=== PATIENT | male | born 1945 | race Caucasian/White ===

== ENCOUNTER 2020-07-07 08:37 | Inpatient (IN) | payer OTHER ==
[2020-07-07 09:51] LABS: Arterial Blood Carboxyhemoglob 0.7 % (0-1.5); Blood Gas Oxyhemoglobin 93.4 % (94-97); Blood O2 Saturation 96.5 % (92-98.5)
--- NOTE | 2020-07-07 10:03 | RAD REPORT ---
EXAM DESCRIPTION: CT - Head C Spine Cap Wo Con - 07/07/2020 9:30 am TECHNIQUE: Computed axial tomography of the head and cervical spine was obtained. Coronal and sagitt al reconstruction was performed Computed axial tomography of the chest, abdomen and pelvis was obtained. Contrast was not requested. All CT scans are performed using dose optimization technique as appropriate and may include automated exposure control or mA/KV adjustment according to patient size. CLINICAL HISTORY: Head and neck injury with chest and abdominal pain status post fall COMPARISON: None FINDINGS: An intracranial bleed is not seen. The ventricles are normal in caliber. An extra-axial fluid collection is not noted. . Fluid within the sinuses/mastoids is not seen. A cervical fracture is not seen. No dislocation is noted. The evaluation of mediastinum, re, vessels, solid organs and bowel are limited secondary to the lac k of contrast administration. A mediastinal hematoma is not noted. No pleural effusion. . A lung contusion is not present. Mild rig ht lower lobe opacities probably atelectasis The liver,spleen, pancreas, adrenals,kidneys and bladder do not demonstrate a traumatic injury. Cholelithiasis. A Acosta catheter is present within the bladder. Spondylosis involves lumbar spine res ulting in spinal stenosis. . Renal cysts suspected IMPRESSION: 1. No acute intracranial abnormality is seen. 2. A cervical fracture is not visualized. If the patient continues have symptoms to suggest intracran ial/spinal cord pathology MRI be recommended 3. No traumatic abnormality involving the chest/abdomen/pelvis.
--- NOTE | 2020-07-07 10:03 | RAD REPORT ---
EXAM DESCRIPTION: Sandy Single View07/07/2020 9:40 am CLINICAL HISTORY: Cough COMPARISON: 2018 FINDINGS: Chronic elevation right hemidiaphragm. Mild right basilar atelectasis Left lung appears clear. The heart remains enlarged but
[2020-07-07 10:14] LABS: Urine Blood 2+ (Negative); Urine Glucose Negative (Negative); Urine Protein 2+ (Negative); Urine Specific Gravity 1.025 (1.005-1.030)
[2020-07-07 10:18] LABS: Absolute Lymphocytes (CBC) 0.4 K/uL (0.7-4.9); Basophils % 0.2 % (0-1.3); Hematocrit 37.3 % (39.6-49.0); Lymphocytes % 4.2 % (15.3-44.8); MPV 8.9 fL (7.6-11.3); RBC Red Blood Cell Count 3.84 M/uL (4.33-5.43)
[2020-07-07 10:23] LABS: Protime INR 3.61
[2020-07-07 10:38] LABS: ALT/SGPT 22 U/L (12-78); AST/SGOT 24 U/L (15-37); Albumin 3.6 g/dL (3.4-5.0); Alkaline Phosphatase 119 U/L (45-117); BUN Blood Urea Nitrogen 31 mg/dL (7-18); Bicarbonate 20 mmol/L (21-32); Bilirubin Direct 0.3 mg/dL (0-0.2); Bilirubin Total 0.7 mg/dL (0.2-1.0); Glucose Level 121 mg/dL (74-106); Lipase 133 U/L (73-393); Magnesium 2.4 mg/dL (1.8-2.4); NT PRO-BNP 821 pg/mL (<450); Potassium 4.6 mmol/L (3.5-5.1); Sodium Level 142 mmol/L (136-145); Troponin (Emerg Dept Use Only) < 0.02 ng/mL (0.0-0.045)
[2020-07-07] MEDS ORDERED: Meropenem 1 GM/100 ML BAG ONE (10:42)
[2020-07-07] MEDS ORDERED: FAMOTIDINE 20 MG/2 ML VIAL IV ONE (10:42)
[2020-07-07] MEDS ORDERED: HYDROCORTISONE SUC 100 MG INJ ONE (10:42)
[2020-07-07] MEDS ORDERED: NA CHLORIDE 0.9% 2,000 ML ONE (10:43)
[2020-07-07 10:59] LABS: Blood Morphology Comment NOT SEEN (NOT SEEN); Platelet Estimate ADEQ; White Blood Cell Scan OK (OK)
--- NOTE | 2020-07-07 11:48 | EDPHYS ---
Physician Documentation [facility] Name: Aravind Ball Age: 75 yrs Sex: Male : 1945 Arrival Date: 07/07/2020 Time: 08:[address] Private MD: Nikko Matthews E ED Physician Jose Taylor HPI: 07/07 09:08 This 75 yrs old Male presents to ER via EMS with complaints of Altered Mental zaki Status. 09:08 The patient presents with confusion, decreased mental status, trouble concentrating. zaki Onset: The symptoms/episode began/occurred 3 day(s) ago. Historical: - Allergies: 08:44 Iodinated Contrast Media - IV Dye; bp 08:44 phenylpropanolamine HCl; bp 08:44 Sulfa (Sulfonamide Antibiotics); bp 08:44 TETRACYCLINES; bp - Home Meds: 08:44 Coumadin Oral [Active]; Lisinopril Oral [Active]; Baclofen Oral [Active]; Metoprolol bp Tartrate Oral [Active]; - PMHx: 08:44 COPD; Hypertension; Pulmonary embolisms 12 years ago; bp - Immunization history:: Adult Immunizations up to date. - Social history:: Smoking status: Patient denies any tobacco usage or history of. ROS: 09:09 Eyes: Negative for injury, pain, redness, and discharge, ENT: Negative for injury, zaki pain, and discharge, Neck: Negative for injury, pain, and swelling, Cardiovascular: Negative for chest pain, palpitations, and edema, Back: Negative for injury and pain, : Negative for injury, bleeding, discharge, and swelling, Skin: Negative for injury, rash, and discoloration, Psych: Negative for depression, anxiety, suicide ideation, homicidal ideation, and hallucinations, Allergy/Immunology: Negative for hives, rash, and allergies, Endocrine: Negative for neck swelling, polydipsia, polyuria, polyphagia, and marked weight changes, Hematologic/Lymphatic: Negative for swollen nodes, abnormal bleeding, and unusual bruising. 09:09 Respiratory: Positive for cough. 09:09 Abdomen/GI: Positive for abdominal pain, abdominal distension, of the right upper quadrant, left upper quadrant, right lower quadrant and left lower quadrant. 09:09 MS/extremity: Positive for pain, swelling, of the right leg and left leg. 09:09 Neuro: Positive for altered mental status. Exam: 09:09 Constitutional: This is a well developed, well nourished patient who is awake, alert, zaki and in no acute distress. Head/Face: Normocephalic, atraumatic. Eyes: Pupils equal round and reactive to light, extra-ocular motions intact. Lids and lashes normal. Conjunctiva and sclera are non-icteric and not injected. Cornea within normal limits. Periorbital areas with no swelling, redness, or edema. ENT: Nares patent. No nasal discharge, no septal abnormalities noted. Tympanic membranes are normal and external auditory canals are clear. Oropharynx with no redness, swelling, or masses, exudates, or evidence of obstruction, uvula midline. Mucous membranes moist. Neck: Trachea midline, no thyromegaly or masses palpated, and no cervical lymphadenopathy. Supple, full range of motion without nuchal rigidity, or vertebral point tenderness. No Meningismus. Chest/axilla: Normal chest wall appearance and motion. Nontender with no deformity. No lesions are appreciated. Cardiovascular: Regular rate and rhythm with a normal S1 and S2. No gallops, murmurs, or rubs. Normal PMI, no JVD. No pulse deficits. Respiratory: Lungs have equal breath sounds bilaterally, clear to auscultation and percussion. No rales, rhonchi or wheezes noted. No increased work of breathing, no retractions or nasal flaring. Back: No spinal tenderness. No costovertebral tenderness. Full range of motion. Male : Normal genitalia with no discharge or lesions. Skin: Warm, dry with normal turgor. Normal color with no rashes, no lesions, and no evidence of cellulitis. Psych: Awake, alert, with orientation to person, place and time. Behavior, mood, and affect are within normal limits. 09:09 Abdomen/GI: Inspection: distension, Bowel sounds: normal, Palpation: mild abdominal tenderness, in all quadrants, Liver: no appreciated palpable abnormalities, Hernia: not appreciated. 09:09 Musculoskeletal/extremity: Extremities: decreased ROM, pain, ROM: limited active range of motion, limited passive range of motion, in all extremities, Pulses: noted to be 4+ in the right posterior tibial artery and left posterior tibial artery, Sensation intact. DVT Exam: no pain, negative Homans' sign noted on exam, no appreciated bluish discoloration, no erythema, no increased warmth, swelling, tenderness. 09:09 Neuro: Orientation: appropriate for stated age, no acute changes, Mentation: slow to respond, Memory: appropriate for stated age, no acute changes, Cranial nerves: is grossly normal based on the patient's age, no acute changes, Cerebellar function: unable to test, Motor: moves all fours, Sensation: no obvious gross deficits, appropriate no acute changes, Gait: not tested. Deep tendon reflexes are 1 (trace) + in the right patellar, bilateral brachioradialis, bicep, tricep and patellar and Achilles tendons, seizure activity, is not displayed by the patient. 17:08 ECG was reviewed by the Attending Physician. [facility] Vital Signs: 08:40 BP 174 / 57; Pulse 63; Resp 11; Temp 97.9; Pulse Ox 100% ; bp 10:00 BP 147 / 76; Pulse 61; Resp 14; Pulse Ox 96% ; bp 10:55 BP 135 / 78; Pulse 63; Resp 11; Pulse Ox 96% ; bp MDM: 08:54 Patient medically screened. zaki 11:04 Differential Diagnosis altered mental status, sepsis. Differential Diagnosis: CVA, zaki electrolyte abnormality, hypoglycemia, overdose, TIA, UTI, volume depletion. Data reviewed: vital signs, nurses notes, lab test result(s), EKG, radiologic studies, CT scan, plain films. Data interpreted: court recording monitor: rate is 63 beats/min, rhythm is regular, Pulse oximetry: on room air is 96 %. Test interpretation: by ED physician or midlevel provider: ECG, plain radiologic studies. Counseling: I had a detailed discussion with the patient and/or guardian regarding: the historical points, exam findings, and any diagnostic results supporting the discharge/admit diagnosis, lab results, radiology results, the need for further work-up and treatment in the hospital. 07/07 09:06 Order name: Basic Metabolic Panel [facility] 07/07 09:06 Order name: CBC with Diff [facility] 07/07 09:06 Order name: LFT's [facility] 07/07 09:06 Order name: Magnesium [facility] 07/07 09:06 Order name: NT PRO-BNP [facility] 07/07 09:06 Order name: PT-INR; Complete Time: 10:54 [facility] 07/07 09:06 Order name: Troponin (emerg Dept Use Only); Complete Time: 10:54 [facility] 07/07 09:06 Order name: Lipase; Complete Time: 10:54 [facility] 07/07 09:06 Order name: Urine Culture [facility] 07/07 09:06 Order name: Lactate; Complete Time: 10:54 [facility] 07/07 09:07 Order name: Basic Metabolic Panel; Complete Time: 10:54 [facility] 07/07 09:07 Order name: CBC with Automated Diff; Complete Time: 11:00 [facility] 07/07 09:07 Order name: Liver (Hepatic) Function; Complete Time: 10:54 [facility] 07/07 09:06 Order name: XRAY Chest (1 view); Complete Time: 10:54 [facility] 07/07 09:07 Order name: Magnesium; Complete Time: 10:54 [facility] 07/07 09:07 Order name: NT PRO-BNP; Complete Time: 10:54 [facility] 07/07 09:08 Order name: CT Traumagram (Head C Spine CAP wo con); Complete Time: 10:54 [facility] 07/07 09:13 Order name: ABG; Complete Time: 10:54 [facility] 07/07 10:14 Order name: Urine Dipstick-Ancillary; Complete Time: 10:54 [facility] 07/07 10:34 Order name: SARS-COV-2 RT PCR; Complete Time: 10:54 [facility] 07/07 10:59 Order name: CBC Smear Scan; Complete Time: 11:00 [facility] 07/07 11:22 Order name: AMMONIA; Complete Time: 14:55 [facility] 07/07 11:49 Order name: Brain Wo Cont; Complete Time: 14:55 [facility] 07/07 15:12 Order name: Lipid Profile; Complete Time: 16:11 [facility] 07/07 20:53 Order name: Hemoglobin A1c [facility] 07/07 09:06 Order name: EKG; Complete Time: 09:07 [facility] 07/07 09:06 Order name: Cardiac monitoring; Complete Time: 09:07 [facility] 07/07 09:06 Order name: EKG - Nurse/Tech; Complete Time: 11:23 [facility] 07/07 09:06 Order name: IV Saline Lock; Complete Time: 11:23 [facility] 07/07 09:06 Order name: Labs collected and sent; Complete Time: 11:23 [facility] 07/07 09:06 Order name: O2 Per Protocol; Complete Time: 09:07 [facility] 07/07 09:06 Order name: O2 Sat Monitoring; Complete Time: 09: [facility] 07/07 09:06 Order name: Urine Dipstick-Ancillary (obtain specimen); Complete Time: 11:23 [facility] 07/07 09:06 Order name: Acosta; Complete Time: 09:07 [facility] 07/07 09:06 Order name: IV Saline Lock - Large Bore; Complete Time: 09:09 [facility] 07/07 09:06 Order name: Blood Glucose Level; Complete Time: 10:07 [facility] 07/07 16:36 Order name: Misc. Order: ekg please; Complete Time: 17:12 [facility] EC:08 Rate is 64 beats/min. Rhythm is regular. QRS [place] is Normal. UT interval is prolonged zaki at 290 msec. QRS interval is normal. QT interval is normal. No Q waves. T waves are Normal. No ST changes noted. Clinical impression: NSR w/ Non-specific ST/T Changes and No evidence of ischemia. Interpreted by me. Reviewed by me. Administered Medications: 10:00 Drug: NS 0.9% 1000 ml Route: IV; Rate: 1 bolus; Site: right antecubital; bp 10:00 Drug: Meropenem 1 grams Route: IV; Rate: per protocol; Site: right antecubital; bp 10:00 Drug: Pepcid (famotidine) 20 mg Route: IVP; Site: right antecubital; bp 10:00 Drug: NS 0.9% 1000 ml Route: IV; Rate: 125 ml/hr; Site: right antecubital; bp 10:00 Drug: Solu-CORTEF (hyrdoCORTISONE) 100 mg Route: IVP; Site: right antecubital; bp Disposition: 07/07/20 11:47 Hospitalization ordered by Demond Ling for Inpatient Admission. 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 - Bed requested for [facility] ER HOLD. - Status is Inpatient Admission. rv - Condition is Fair. - Problem is new. - Symptoms are unchanged. Signatures: Dispatcher [employer] EDMS Maryse Saha Corey, MD MD cha Peltier, Brian, RN RN bp Dylon Morrison, RN RN rv Corrections: (The following items were deleted from the chart) 09:38 09:07 CORONAVIRUS+MR.LAB.BRZ ordered. EDTX EDMS 11:49 11:26 MR STROKE PROTOCOL+MRI.RAD.BRZ ordered. [facility] EDTX 16:06 11:47 Hospitalization Ordered by Demond Ling MD for Inpatient Admission. 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 Bed requested for Telemetry/MedSurg (Inpatient). Status is Inpatient Admission. Condition is Fair. Problem is new. Symptoms are unchanged. zaki 21:12 16:06 07/07/2020 11:47 Hospitalization Ordered by Demond Ling MD for Inpatient rv Admission. Preliminary diagnosis is Altered mental status, unspecified; Adverse effect of other drugs, medicaments and biological substances - Baclofen; Obesity, unspecified; skilled nursing (current) use of anticoagulants; Unspecified kidney failure - chronic. Bed requested for [facility] ER HOLD. Status is Inpatient Admission. Condition is Fair. Problem is new. Symptoms are unchanged. bd
--- NOTE | 2020-07-07 11:48 | ER ---
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 PER FAMILY, PT NORMALLY AO4, W/C BOUND. bp Coronavirus screen: At this time, the client does not indicate any symptoms associated with coronavirus-19. Ebola Screen: No symptoms or risks identified at this time. Initial Sepsis Screen: Does the patient meet any 2 criteria? No. Patient's initial sepsis screen is negative. Does the patient have a suspected source of infection? No. Patient's initial sepsis screen is negative. Risk Assessment: Do you want to hurt yourself or someone else? Patient reports no desire to harm self or others. Note LAST KNOWN NORMAL YESTERDAY 1800. Onset of symptoms is unknown. Care prior to arrival: IV initiated. in the right antecubital area, 16 GAUGE Glucose check: 117. 08:39 Method Of Arrival: EMS: [facility] bp 08:39 Acuity: HERNÁN 2 bp Triage Assessment: 08:40 General: Appears distressed, uncomfortable, obese, unkempt, Behavior is cooperative, bp anxious. Pain: Unable to use pain scale. Does not appear to understand pain scale. EENT: No deficits noted. Neuro: Level of Consciousness is awake, obeys commands, confused, Oriented to none Speech with expressive aphasia noted. Cardiovascular: Rhythm is sinus rhythm. Respiratory: No deficits noted. GI: No signs and/or symptoms were reported involving the gastrointestinal system. : No signs and/or symptoms were reported regarding the genitourinary system. Derm: No deficits noted. Musculoskeletal: No deficits noted. Historical: - Allergies: 08:44 Iodinated Contrast Media - IV Dye; bp 08:44 phenylpropanolamine HCl; bp 08:44 Sulfa (Sulfonamide Antibiotics); bp 08:44 TETRACYCLINES; bp - Home Meds: 08:44 Coumadin Oral [Active]; Lisinopril Oral [Active]; Baclofen Oral [Active]; Metoprolol bp Tartrate Oral [Active]; - PMHx: 08:44 COPD; Hypertension; Pulmonary embolisms 12 years ago; bp - Immunization history:: Adult Immunizations up to date. - Social history:: Smoking status: Patient denies any tobacco usage or history of. Screenin:40 Abuse screen: Denies threats or abuse. Denies injuries from another. Nutritional bp screening: No deficits noted. Tuberculosis screening: No symptoms or risk factors identified. Fall Risk None identified. Assessment: 08:40 General: SEE TRIAGE NOTE. bp 10:55 Reassessment: No changes from previously documented assessment. Patient and/or family bp updated on plan of care and expected duration. Pain level reassessed. ALL CURRENT ORDERS COMPLETED. 21:03 Reassessment: Patient appears in no apparent distress at this time. report given to [address] nydia VITALE, awake alert vital signs taken and recorded. Vital Signs: 08:40 BP 174 / 57; Pulse 63; Resp 11; Temp 97.9; Pulse Ox 100% ; bp 10:00 BP 147 / 76; Pulse 61; Resp 14; Pulse Ox 96% ; bp 10:55 BP 135 / 78; Pulse 63; Resp 11; Pulse Ox 96% ; bp ED Course: 08:39 Patient arrived in ED. am2 08:39 Devon Victoria, RN is Primary Nurse. bp 08:40 Patient has correct armband on for positive identification. Bed in low position. Call bp light in reach. Side rails up X2. 08:40 Maintain EMS IV. Dressing intact. Good blood return noted. Site clean \T\ dry. Gauge \T\ bp site: 16 G R AC. 08:42 Triage completed. bp 08:45 Arm band placed on. bp 08:54 Jose Taylor MD is Attending Physician. zaki 09:00 Acosta cath inserted, using sterile technique, 16 Fr., by me, balloon inflated, to bp gravity drainage, returned clear yellow urine. Patient tolerated well. 09:23 Nikko Matthews MD is Private Physician. am2 09:30 CT Traumagram (Head C Spine CAP wo con) In Process Unspecified. EDMS 09:39 XRAY Chest (1 view) In Process Unspecified. EDMS 11:39 Demond Ling MD is Hospitalizing Provider. zaki 11:49 Brain Wo Cont In Process Unspecified. EDMS 12:23 initiated transfer to [facility] [place] denied due to no beds at this time,per mary feliciano. Administered Medications: 10:00 Drug: NS 0.9% 1000 ml Route: IV; Rate: 1 bolus; Site: right antecubital; bp 10:00 Drug: Meropenem 1 grams Route: IV; Rate: per protocol; Site: right antecubital; bp 10:00 Drug: Pepcid (famotidine) 20 mg Route: IVP; Site: right antecubital; bp 10:00 Drug: NS 0.9% 1000 ml Route: IV; Rate: 125 ml/hr; Site: right antecubital; bp 10:00 Drug: Solu-CORTEF (hyrdoCORTISONE) 100 mg Route: IVP; Site: right antecubital; bp Outcome: 11:47 Decision to Hospitalize by Provider. zaki 21:12 Patient left the ED. rv Signatures: Dispatcher [employer] EDMS Maryse Saha Corey, MD MD cha Moreno, Amanda am2 Devon Victoria, RN RN bp Dylon Morrison RN RN rv Elvis Romo, RN RN [id number]
--- NOTE | 2020-07-07 12:30 | RAD REPORT ---
EXAM DESCRIPTION: MRI - Brain Wo Cont - 07/07/2020 12:14 pm CLINICAL HISTORY: Alteration consciousness/confusion COMPARISON: July 07, 2020 cat scan TECHNIQUE: Axial, sagittal, and coronal magnetic images of the brain were obtained. Contrast was not requested FINDINGS: Images are degraded by patient motion artifact No significant abnormal signal within the brain is visualized. Diffusion-weighted/ADC mapping does not reveal evidence of acute infarction. The ventricles are normal caliber. An extra-axial fluid collection is not present Fluid within the sinuses/mastoids is not noted IMPRESSION: Grossly normal unenhanced brain MRI
--- NOTE | 2020-07-07 14:14 | P.HP ---
Certification for Inpatient Patient admitted to: Inpatient With expected LOS: >2 Midnights Patient will require the following post-hospital care: None Practitioner: I am a practitioner with admitting privileges, knowledge of patient current condition, hospital course, and medical plan of care. Services: Services provided to patient in accordance with Admission requirements found in Title 42 Section 412.3 of the Code of Federal Regulations Patient History Date of Service: 07/07/20 Reason for admission: AMS History of Present Illness: Patient is a 75-year-old male with a PMHx significant for DM 2, hypertension, AFib, gout, constipation, pulmonary embolism, CKD, ARCHIE, morbid obesity who presents with complaint of altered mental status. Patient currently disoriented x3 and unable to answer any questions. Per spouse report, patient fell 1 week ago, hit his head but did not lose consciousness and also injured his back from the fall. Patient developed back pain\spasms thereafter and decided to follow up with his PCP 5 days ago. Patient was prescribed baclofen 20 mg t.i.d. p.r.n. by his primary care doctor. Patient took 3 tablets of baclofen 2 days ago and another 3 tablets yesterday. Spouse reported that patient was normal yesterday before she went to work. When she returned from work this morning, she found that the patient was unresponsive to commands and patient was confused. She counted the number of baclofen prescribed and discovered that only 6 tablets were missing from the original bottle. No other signs or symptoms reported. Symptoms are aggravated or relieved by relieved by nothing. Spouse decided to bring patient to the hospital for medical evaluation. Allergies acetaminophen [From Tetra] Allergy (Mild, Verified 04/13/17 01:27) Nausea/Vomiting phenylpropanolamine HCl [From Tetra] Allergy (Mild, Verified 04/13/17 01:27) Nausea/Vomiting Tetracyclines Allergy (Verified 04/13/17 01:27) Unknown Iodinated Contrast- O Allergy (Uncoded 04/12/17 23:51) Unknown Sulfa (Sulfonamid Allergy (Uncoded 04/12/17 23:51) Unknown Home medications list reviewed: Yes Home Medications: Allopurinol 300 mg PO DAILY 11/21/12 Colchicine [Colcrys *] 0.6 mg PO DAILY PRN 11/21/12 Furosemide [Lasix*] 40 mg PO SEECOM 11/21/12 Hydrocodone Bit/Acetaminophen [Hydrocodon-Acetaminophn 10-500] 1 each PO Q6HP PRN 11/21/12 Lactulose [Constulose] 10 gm PO DAILY PRN 11/21/12 Liraglutide [Victoza 2-Hussain] 1.8 mg SQ DAILY 11/21/12 Warfarin Sodium [Coumadin*] 3 mg PO DAILY 5 PM 11/21/12 sulfaSALAzine [Azulfidine] 200 mg PO BID 11/21/12 Diphenhydramine [Benadryl*] 25 mg PO BID PRN 04/13/17 Insulin Detemir [Levemir Flextouch] 40 unit SQ BID 04/13/17 Ipratropium/Albuterol Sulfate [Iprat-Albut 0.5-3(2.5) mg/3 ml] 1 amp IH QID PRN 04/13/17 Lisinopril [Zestril] 2.5 mg PO DAILY 04/13/17 Umeclidinium Brm/Vilanterol Tr [Anoro Ellipta 62.5-25 Mcg INH] 1 each IH DAILY #1 blst.w.dev 04/13/17 glipiZIDE [Glucotrol*] 5 mg PO DAILY 04/13/17 guaiFENesin [Child Mucinex Chest Mini-Melts] 100 mg PO BID PRN 04/13/17 predniSONE [Deltasone*] 10 mg PO SEECOM #15 tab 04/13/17 - Past Medical/Surgical History Diabetic: Yes -: Hypertension -: Morbid obesity -: Type II Diabetes -: Gout -: Sleep apea with BPAP and O2 at night -: IBS -: ESRD non-dialysis -: PE -: birdsnest filter left groin 01/2012 -: Bilateral inguinal hernia repair -: right groin abscess - Social History Smoking Status: Former smoker Alcohol use: No CD- Drugs: No Caffeine use: Yes Place of Residence: Home Review of Systems is unable to be obtained Physical Examination - Physical Exam General: In no apparent distress, Delirious, Obese HEENT: Normocephalic, PERRLA, EOMI Neck: Supple, 2+ carotid pulse no bruit, No LAD, Without JVD or thyroid abnormality Respiratory: Clear to auscultation bilaterally, Normal air movement Cardiovascular: No edema, Regular rate/rhythm, Normal S1 S2 Capillary refill: <2 Seconds Gastrointestinal: Normal bowel sounds, No tenderness Musculoskeletal: No clubbing, No tenderness Integumentary: No rashes, No breakdown Neurological: Normal strength at 5/5 x4 extr, Other (confused) Lymphatics: No axilla or inguinal lymphadenopathy Urinary: Acosta catheter External genitalia: Deferred Rectal: Deferred - Studies Laboratory Data (last 24 hrs) 07/07/20 10:05: PT 42.1 H, INR 3.61 07/07/20 10:05: WBC 9.30, Hgb 12.2 L, Hct 37.3 L, Plt Count 167 07/07/20 10:05: Sodium 142, Potassium 4.6, BUN 31 H, Creatinine 1.79 H, Glucose 121 H, Magnesium 2.4, Total Bilirubin 0.7, AST 24, ALT 22, Alkaline Phosphatase 119 H, Lipase 133 Assessment and Plan - Plan --Acute encephalopathy. Likely secondary to baclofen overdose. MRI brain unremarkable for any acute intracranial abnormality. Neurology consulted. Ammonia level unremarkable. UA pending. Patient currently disoriented x3. Will keep patient NPO. Will await further recommendations from neurologist. Continue supportive care. --DM 2. BS monitoring with sliding scale insulin. --Gout. Continue medications when appropriate. --Hypertension. Stable. Continue medications when appropriate. --Atrial fibrillation\Hx of PE. INR elevated at 3.61. Will hold off warfarin. Will reassess PT\INR in a.m. and treat accordingly. --CKD 3b. Stable. Will continue to monitor renal functions. --ARCHIE. Patient placed on CPAP and O2 therapy qhs per patient regimen at home --Morbid obesity. Likely secondary to excess calories intake. Patient will be counseled on diet and exercise therapy when fully alert. --Chronic constipation. Continue home medications when appropriate. --COPD. Continue home medications --DVT prophylaxis with SCDs. Discharge Plan: Home Plan to discharge in: 48 Hours - Advance Directives Does patient have a Living Will: No Does patient have a Durable POA for Healthcare: No - Code Status/Comfort Care Code Status Assessed: Yes Code Status: Full Code Critical Care: No
[2020-07-07] MEDS ORDERED: INSULIN -REGULAR HUMAN 50 UNIT/0.5 ML ML SQ SCH (18:00)
[2020-07-07] MEDS ORDERED: GLUCAGON 1 MG/VIAL IM PRN (18:00)
[2020-07-07] MEDS ORDERED: ACETAMINOPHEN 650MG/RECT SUPP PR PRN (18:00)
[2020-07-07] MEDS ORDERED: ONDANSETRON 4 MG/2 ML VIAL IV PRN (18:00)
[2020-07-07] MEDS ORDERED: D50W 25 GM/50 ML VIAL IV PRN (18:08)
[2020-07-07 18:43] VITALS: O2SAT 98
--- NOTE | 2020-07-07 19:34 | P.DS ---
Admission Date: 07/07/20 Discharge Date: 07/07/20 Disposition: TRANSFER TO [facility] Discharge Condition: FAIR Reason for Admission: AMS Brief History of Present Illness: Patient is a 75-year-old male with a PMHx significant for DM 2, hypertension, AFib, gout, constipation, pulmonary embolism, CKD, ARCHIE, morbid obesity who presents with complaint of altered mental status. Patient currently disoriented x3 and unable to answer any questions. Per spouse report, patient fell 1 week ago, hit his head but did not lose consciousness and also injured his back from the fall. Patient developed back pain\spasms thereafter and decided to follow up with his PCP 5 days ago. Patient was prescribed baclofen 20 mg t.i.d. p.r.n. by his primary care doctor. Patient took 3 tablets of baclofen 2 days ago and another 3 tablets yesterday. Spouse reported that patient was normal yesterday before she went to work. When she returned from work this morning, she found that the patient was unresponsive to commands and patient was confused. She counted the number of baclofen prescribed and discovered that only 6 tablets were missing from the original bottle. No other signs or symptoms reported. Symptoms are aggravated or relieved by relieved by nothing. Spouse decided to bring patient to the hospital for medical evaluation. Hospital Course: Patient admitted for acute encephalopathy likely secondary to baclofen overdose. MRI brain unremarkable for acute intracranial abnormality. Ammonia level unremarkable. Patient was approved for transfer to [facility] due to lack of beds here. General: Confused HEENT: Atraumatic, Normocephalic, PERRLA, Mucous membr. moist/pink, EOMI, Sclerae nonicteric Neck: Supple, 2+ carotid pulse no bruit, JVD not distended, No Thyromegaly, No LAD Respiratory: Clear to auscultation bilaterally, Normal air movement Cardiovascular: No edema, Normal pulses, Regular rate/rhythm, Normal S1 S2, No gallops, No rubs, No murmurs Capillary refill: <2 Seconds Gastrointestinal: Normal bowel sounds, Soft and benign, No ascites, No masses, No rebound, No guarding, Distended, Tenderness Musculoskeletal: No clubbing, No swelling, No contractures, No erythema, No warmth, Tenderness Integumentary: No rashes, No breakdown, No significant lesion, No tenderness/swelling, No erythema, No warmth, No cyanosis Neurological: Normal tone, Sensation intact, Cranial nerves 3-12 intact, Abnormal strength, Abnormal affect Lymphatics: No axilla or inguinal lymphadenopathy Laboratory Data at Discharge: WBC 9.30 K/uL (4.3-10.9) 07/07/20 10:05 Hgb 12.2 g/dL (13.6-17.9) L 07/07/20 10:05 Hct 37.3 % (39.6-49.0) L 07/07/20 10:05 Plt Count 167 K/uL (152-406) 07/07/20 10:05 PT 42.1 SECONDS (9.5-12.5) H 07/07/20 10:05 INR 3.61 07/07/20 10:05 Sodium 142 mmol/L (136-145) 07/07/20 10:05 Potassium 4.6 mmol/L (3.5-5.1) 07/07/20 10:05 BUN 31 mg/dL (7-18) H 07/07/20 10:05 Creatinine 1.79 mg/dL (0.55-1.3) H 07/07/20 10:05 Glucose 121 mg/dL (74-106) H 07/07/20 10:05 Magnesium 2.4 mg/dL (1.8-2.4) 07/07/20 10:05 Total Bilirubin 0.7 mg/dL (0.2-1.0) 07/07/20 10:05 AST 24 U/L (15-37) 07/07/20 10:05 ALT 22 U/L (12-78) 07/07/20 10:05 Alkaline Phosphatase 119 U/L (45-117) H 07/07/20 10:05 Triglycerides 81 mg/dL (<150) 07/07/20 14:45 Cholesterol 147 mg/dL (<200) 07/07/20 14:45 HDL Cholesterol 59 mg/dL (40-60) 07/07/20 14:45 Cholesterol/HDL Ratio 2.49 07/07/20 14:45 Lipase 133 U/L (73-393) 07/07/20 10:05 Home Medications: Allopurinol 300 mg PO DAILY 11/21/12 Colchicine [Colcrys *] 0.6 mg PO DAILY PRN 11/21/12 Furosemide [Lasix*] 40 mg PO SEECOM 11/21/12 Hydrocodone Bit/Acetaminophen [Hydrocodon-Acetaminophn 10-500] 1 each PO Q6HP PRN 11/21/12 Lactulose [Constulose] 10 gm PO DAILY PRN 11/21/12 Liraglutide [Victoza 2-Hussain] 1.8 mg SQ DAILY 11/21/12 Warfarin Sodium [Coumadin*] 3 mg PO DAILY 5 PM 11/21/12 sulfaSALAzine [Azulfidine] 200 mg PO BID 11/21/12 Diphenhydramine [Benadryl*] 25 mg PO BID PRN 04/13/17 Insulin Detemir [Levemir Flextouch] 40 unit SQ BID 04/13/17 Ipratropium/Albuterol Sulfate [Iprat-Albut 0.5-3(2.5) mg/3 ml] 1 amp IH QID PRN 04/13/17 Lisinopril [Zestril] 2.5 mg PO DAILY 04/13/17 Umeclidinium Brm/Vilanterol Tr [Anoro Ellipta 62.5-25 Mcg INH] 1 each IH DAILY #1 blst.w.dev 04/13/17 glipiZIDE [Glucotrol*] 5 mg PO DAILY 04/13/17 guaiFENesin [Child Mucinex Chest Mini-Melts] 100 mg PO BID PRN 04/13/17 predniSONE [Deltasone*] 10 mg PO SEECOM #15 tab 04/13/17 Physician Discharge Instructions: Patient will be transferred to [facility] in the medical center for further treatment. Diet: (NPO) Activity: Fall precautions Followup: NONE,NONE [Primary Care Provider] - Time spent managing pt's care (in minutes): 30
[2020-07-07 21:29] VITALS: TEMP 97.9
[2020-07-07 21:32] VITALS: BP 135/78
--- NOTE | 2020-07-08 07:18 | EKG ---
Test Date: 2020-07-07 Test Time: 16:57:31 [employer] Attendant: ALP MEASUREMENT RESULTS: Intervals: Rate: 64 CA: 290 QRSD: 138 QT: 456 QTc: 470 [place]: P: -15 CA: 290 QRS: -77 T: -5 INTERPRETIVE STATEMENTS: Sinus rhythm with 1st degree AV block with fusion complexes Left axis deviation Right bundle branch block Possible Lateral infarct, age undetermined Inferior infarct, age undetermined Abnormal ECG Compared to ECG 04/12/2017 20:29:54 Fusion complex(es) now present First degree AV block now present Left-axis deviation now present Myocardial infarct finding now present Sinus arrhythmia no longer present Left anterior fascicular block no longer present Bifascicular block no longer present Electronically Signed On 07-08-20 07:17:36 CDT by Jt Wolff
[2020-07-08] MEDS ORDERED: FUROSEMIDE 40 MG/4 ML VIAL IV SCH (09:00)
== END 2020-07-07 21:12 | disposition short-term general hospital (02) | DRG 917 ==
LOC: ER 08:37 → ERHOLD 12:31
PROVIDERS: ADMIT Internal Medicine; ATTEND Internal Medicine
DX: T42.8X1A Poisoning by antiparkinsonism drugs and other central muscle-tone depressants, accidental (unintentional), initial encounter (principal); G92 Toxic encephalopathy; M10.9 Gout, unspecified; I48.91 Unspecified atrial fibrillation; I12.9 Hypertensive chronic kidney disease with stage 1 through stage 4 chronic kidney disease, or unspecified chronic kidney disease; N18.32 Chronic kidney disease, stage 3b; E11.22 Type 2 diabetes mellitus with diabetic chronic kidney disease; K59.09 Other constipation; G47.33 Obstructive sleep apnea (adult) (pediatric); J44.9 Chronic obstructive pulmonary disease, unspecified; Z88.8 Allergy status to other drugs, medicaments and biological substances; Z88.1 Allergy status to other antibiotic agents; Z91.041 Radiographic dye allergy status; Z79.899 Other long term (current) drug therapy; Z86.711 Personal history of pulmonary embolism; Z79.01 Long term (current) use of anticoagulants; Z79.4 Long term (current) use of insulin; Z79.52 Long term (current) use of systemic steroids; Z87.891 Personal history of nicotine dependence; Z20.822 Contact with and (suspected) exposure to COVID-19
CPT/HCPCS: 36415; 51702; 70450; 70551; 71045; 71250; 72125; 80048; 80061; 80076; 81003; 82140; 82805; 83036; 83605; 83690; 83735; 83880; 84484; 85025; 85610; 87086; 87088; 93005; 96374; 96375; 99284; J1720; J2185; J7030; U0003

== ENCOUNTER 2022-02-15 09:44 | Emergency (ER) | payer OTHER ==
[2022-02-15 10:08] LABS: Absolute Lymphocytes (CBC) 1.1 K/uL (0.7-4.9); Hematocrit 24.3 % (39.6-49.0); Lymphocytes % 14.2 % (15.3-44.8); MCV 101.3 fL (80-100); MPV 8.6 fL (7.6-11.3)
--- NOTE | 2022-02-15 10:17 | RAD REPORT ---
EXAM DESCRIPTION: CT - Ct Stroke Brain Wo Cont - 02/15/2022 10:02 am CLINICAL HISTORY: ams Headache, drowsiness, CVA symptomology COMPARISON: No comparisons TECHNIQUE: All CT scans are performed using dose optimization technique as appropriate and may inclu de automated exposure control or mA/KV adjustment according to patient size. FINDINGS: No intracranial hemorrhage, hydrocephalus or extra-axial fluid collection.Mild generalized brain atrophy is present with mild periventricular and deep white matter chronic microvascular ische brenda changes.No areas of brain edema or evidence of midline shift. The paranasal sinuses and mastoids are clear. The calvarium is intact. IMPRESSION: No acute intracranial abnormality. If there is continued clinical concern for CVA, MR imaging of the brain would be recommended. The findings were discussed with Dr Taylor in ER on 02/15/2022 at 10:03 a.m. by telephone.
[2022-02-15 10:23] LABS: Protime INR 4.73
[2022-02-15 10:27] LABS: Albumin 2.6 g/dL (3.4-5.0); Bilirubin Direct 0.2 mg/dL (0-0.2); Bilirubin Total 0.4 mg/dL (0.2-1.0); Magnesium 2.9 mg/dL (1.6-2.4); Protein, Total 5.5 g/dL (6.4-8.2); Troponin High Sensitivity 20.7 pg/mL (<58.9)
[2022-02-15] MEDS ORDERED: CEFTRIAXONE 1000 MG/VIAL ONE (10:34)
[2022-02-15] MEDS ORDERED: NA CHLORIDE 0.9% 1,000 ML ONE ×2 (10:35→12:39)
[2022-02-15] MEDS ORDERED: PANTOPRAZOLE 40 MG INJ ONE (10:35)
[2022-02-15] MEDS ORDERED: FAMOTIDINE 20 MG/2 ML VIAL IV ONE (10:35)
[2022-02-15 10:47] LABS: SARS-CoV-2 Antigen Rapid Res Negative (Negative)
--- NOTE | 2022-02-15 10:47 | ER ---
Nurse's Notes [facility] Name: Aravind Ball Age: 76 yrs Sex: Male : 1945 Arrival Date: 02/15/2022 Time: 09:45 Bed 2 Private MD: Diagnosis: GI Bleed/ Gastrointestinal hemorrhage, unspecified;Weakness;Syncope Near;Acute kidney failure, unspecified-on chronic;Hyperkalemia;Hypotension, unspecified;Obesity due to excess calories;Abnormal coagulation profile;skilled nursing (current) use of anticoagulants;Bradycardia, unspecified Presentation: 02/15 09:56 Chief complaint: EMS states: pt is extremely weak and has had blurred vision and seeing mb9 stars since this morning. Pt states "I feel better now and I'm not seeing stars anymore." Pts states "his blood pressure is lower than normal and usually runs 98/60." EMS started 0.9% NS liter due to pts blood pressure of 70/30. Coronavirus screen: Vaccine status: Patient reports receiving the 2nd dose of the covid vaccine. Ebola Screen: No symptoms or risks identified at this time. Initial Sepsis Screen: Does the patient meet any 2 criteria? RR > 20 per min. Systolic BP < 90 mmHg. Mean Arterial Pressure (MAP) < 65. Yes Does the patient have a suspected source of infection? No. Patient's initial sepsis screen is negative. Risk Assessment: Do you want to hurt yourself or someone else? Patient reports no desire to harm self or others. Onset of symptoms was February 15, 2022. 09:56 Method Of Arrival: EMS: [facility] mb9 09:56 Acuity: HERNÁN 2 mb9 Historical: - Allergies: 09:53 Iodinated Contrast Media - IV Dye; ss 09:53 phenylpropanolamine HCl; ss 09:53 Sulfa (Sulfonamide Antibiotics); ss 09:53 TETRACYCLINES; ss - PMHx: 09:53 COPD; Pulmonary embolisms 12 years ago; ss 10:17 Atrial Flutter; Hypotension; Diabetes mellitus; mb9 10:22 Lymphedema; mb9 10:22 One Kidney; mb9 - PSHx: 10:17 Knee surgery; Triple Hernia; mb9 - Immunization history:: Adult Immunizations up to date. - Social history:: Smoking status: Patient/guardian denies using tobacco, but has a distant history of tobacco abuse. - Family history:: not pertinent. Screenin:00 [facility] ED Fall Risk Assessment (Adult) History of falling in the last 3 months, mb9 including since admission No falls in past 3 months (0 pts) Confusion or Disorientation No (0 pts) Intoxicated or Sedated No (0 pts) Impaired Gait No (0 pts) Mobility Assist Device Used No (0 pt) Altered Elimination No (0 pt) Score/Fall Risk Level 0 - 2 = Low Risk Oriented to surroundings, Maintained a safe environment, Educated pt \\T\\ family on fall prevention, incl call for assistance when getting out of bed. Abuse screen: Denies threats or abuse. Nutritional screening: No deficits noted. Tuberculosis screening: No symptoms or risk factors identified. Fall Risk. Assessment: 10:00 General: Appears uncomfortable, Behavior is cooperative. mb9 10:00 Pain: Complains of pain in right midcalf and left midcalf and LLQ Pain does not mb9 radiate. Pain currently is 2 out of 10 on a pain scale. Quality of pain is described as sharp, shooting, throbbing. Neuro: Watt Agitation-Sedation Scale (RASS): 0 - Alert and Calm Level of Consciousness is awake, alert, obeys commands, Oriented to person, place, time, situation, Appropriate for age [employer] Operator are equal bilaterally Moves all extremities. Speech is normal, Facial symmetry appears normal, Pupils are Pupil Size: 2mm sluggish, Intact Reports weakness and seeing stars. Cardiovascular: Heart tones S1 S2 present Rhythm is atrial fibrillation. Respiratory: Airway is patent Respiratory effort is even, unlabored, Respiratory pattern is regular, symmetrical, Breath sounds are clear bilaterally. GI: Abdomen is round non-distended, Bowel sounds present X 4 quads. Abdomen is tender to palpation in left lower quadrant Patient currently denies bloody stool, diarrhea, nausea. : Acosta in place Urine is clear. EENT: Reports blurred vision since this morning seeing black spots and stars. Derm: Skin is intact, Skin is dry, Skin is pale, Skin temperature is cool Wound noted right midcalf Wound is inflammed, red, and has serosanguinous drainage. Musculoskeletal: Range of motion: intact in all extremities, Swelling present in right and left lower calf and feet. 11:00 Neuro: Level of Consciousness is awake, alert, obeys commands, Oriented to person, mb9 place, time, situation, Appropriate for age Denies seeing blurred vision and stars . Cardiovascular: Rhythm is atrial fibrillation. Respiratory: Airway is patent Respiratory effort is even, unlabored, Respiratory pattern is regular, symmetrical. Derm: Skin is intact, Skin is dry, Skin is pale. 12:00 Neuro: Reports weakness Denies seeing any visual changes right now. Cardiovascular: mb9 Rhythm is atrial fibrillation. Respiratory: Airway is patent Respiratory effort is even, unlabored, Respiratory pattern is regular, symmetrical. Derm: Skin is intact, Skin is dry, Skin is pale, Skin temperature is cool. 12:23 Reassessment: Consent form for blood transfusion signed by patient. mb9 13:00 Reassessment:. General: Appears comfortable, Behavior is. Neuro: Level of Consciousness mb9 is awake, alert, obeys commands, Oriented to person, place, time, situation, Appropriate for age Denies blurred vision. Cardiovascular: Rhythm is sinus rhythm. Respiratory: Airway is patent Respiratory effort is even, unlabored, Respiratory pattern is regular, symmetrical. Derm: Skin is intact, Skin is dry, Skin is pale, Skin temperature is warm. 14:00 Reassessment: pt currently sleeping. Rhythm is regular. Respirations are even and mb9 unlabored. Airway is patent. Skin is pale, warm, and intact. 15:29 General: Appears Behavior is calm, cooperative. Neuro: Level of Consciousness is awake, mb9 alert, obeys commands. Neuro: Denies blurred vision. Cardiovascular: Rhythm is sinus rhythm. Respiratory: Airway is patent Respiratory effort is even, unlabored, Respiratory pattern is regular, symmetrical. Derm: Skin is intact, Skin is dry, Skin is pale, Skin temperature is warm. 16:18 Reassessment: Report called to transferring nurse Rupa Sow RN. mb9 17:03 General: Appears comfortable, Behavior is calm, cooperative, appropriate for age. mb9 Neuro: Level of Consciousness is awake, alert, obeys commands, Oriented to person, place, time, situation, Appropriate for age. Respiratory: Airway is patent. Derm: Skin is intact, Skin is dry, Skin is pale, Skin temperature is warm. 18:32 Reassessment: No changes from previously documented assessment. Patient states symptoms mb9 have improved. 19:29 Reassessment: No changes from previously documented assessment. updated on ETA for [facility] Patient states symptoms have improved. 20:30 Reassessment: Patient and/or family updated on plan of care and expected duration. Pain ha1 level reassessed. Patient is alert, oriented x 3, equal unlabored respirations, skin warm/dry/pink. Neuro: Level of Consciousness is awake, alert, obeys commands, Oriented to person, place, time, situation. Respiratory: Airway is patent Respiratory effort is even, unlabored, Respiratory pattern is regular, symmetrical. Vital Signs: 09:56 BP 81 / 49; Pulse 53; Resp 22; Temp 98.2(O); Pulse Ox 99% on R/A; Weight 123.83 kg; mb9 Height 6 ft. 0 in. (182.88 cm); Pain /10; 10:07 BP 82 / 61; Pulse 47; Resp 22; Pulse Ox 98% ; mb9 10:15 BP 75 / 37; Pulse 56; Resp 20; Pulse Ox 99% ; mb9 10:25 BP 78 / 32; Pulse 51; Resp 18; Pulse Ox 100% ; mb9 11:00 BP 60 / 37; Pulse 53; Resp 22; Pulse Ox 100% ; mb9 11:15 BP 94 / 42; Pulse 53; Resp 18; Pulse Ox 100% ; mb9 11:30 BP 95 / 34; Pulse 57; Resp 16; Pulse Ox 100% ; mb9 11:45 BP 98 / 69; Pulse 70; Resp 18; Pulse Ox 98% ; mb9 12:00 BP 89 / 44; Pulse 74; Resp 15; Pulse Ox 100% ; mb9 12:15 BP 103 / 47; Pulse 64; Resp 18; Pulse Ox 97% ; mb9 12:30 BP 103 / 44; Pulse 64; Resp 18; Pulse Ox 98% ; mb9 12:45 BP 103 / 44; Pulse 68; Resp 18; Temp 97.5; Pulse Ox 96% ; mb9 13:55 BP 93 / 57; Pulse 56; Resp 18; Temp 97.3; Pulse Ox 98% ; mb9 15:25 BP 95 / 46; Pulse 57; Resp 18; Temp 97.3; Pulse Ox 100% ; mb9 16:55 BP 107 / 39; Pulse 58; Resp 18; Temp 97.5; Pulse Ox 100% on 2 lpm NC; mb9 18:32 BP 109 / 52; Pulse 58; Resp 18; Pulse Ox 96% on 2 lpm NC; mb9 19:30 BP 108 / 51; Pulse 58; Resp 16; Pulse Ox 100% on R/A; kl 20:31 BP 101 / 51; Pulse 60; Resp 19 S; Pulse Ox 98% on 2 lpm NC; ha1 09:56 Body Mass Index 37.03 (123.83 kg, 182.88 cm) mb9 12:45 Baseline vitals for FFP mb9 13:55 Unit 2 of FFP started at 50 ml/hr mb9 15:25 Baseline for PRBCs. Started at 50 ml/hr. No adverse reaction noted mb9 16:55 Time completed for RBC transfusion. See blood transfusion sheet for more information mb9 ED Course: 09:45 Patient arrived in ED. vg1 09:45 Arm band placed on. mb9 09:45 Placed in gown. Bed in low position. Call light in reach. Side rails up X 1. mb9 09:48 Jose Taylor MD is Attending Physician. [facility] 09:55 Rae Tolliver RN is Primary Nurse. mb9 10:03 CT Stroke Brain w/o Contrast In Process Unspecified. EDMS 10:07 Triage completed. mb9 10:13 Inserted saline lock: 20 gauge in right upper arm, using aseptic technique. aa5 10:13 First set of blood cultures drawn by me. aa5 10:13 Maintain EMS IV. Gauge \\T\\ site: 22G to L AC . aa5 10:30 Inserted saline lock: 22 gauge in right wrist, using aseptic technique. aa5 10:32 XRAY Chest (1 view) In Process Unspecified. EDMS 10:35 Second set of blood cultures drawn by me. aa5 10:35 T\\T\\S collected, blood band applied to patient. aa5 10:36 initiated transfer to [facility]. bd 10:49 Blood Culture Adult (2) Sent. mb9 11:55 T/S verification tube drawn and sent. em1 12:00 Acosta cath inserted, using sterile technique, 16 Fr., by me, balloon inflated, urine mb9 specimen collected. returned clear yellow urine. Patient tolerated well. 12:08 Bb Add On Sent. mb9 13:44 No provider procedures requiring assistance completed. mb9 16:06 Fresh Frozen Plasma Sent. mb9 20:41 Patient transferred, IV remains in place. ha1 Administered Medications: 10:48 Drug: NS 0.9% 1000 ml Route: IV; Rate: 1 bolus; Site: right upper arm; mb9 11:45 Follow up: Response: No adverse reaction; IV Status: Completed infusion mb9 10:48 Drug: Rocephin (cefTRIAXone) 1 grams Route: IV; Rate: per protocol; Site: right upper mb9 arm; 14:21 Follow up: Response: No adverse reaction; IV Status: Completed infusion mb9 10:48 Drug: Pepcid (famotidine) 20 mg Route: IVP; Site: left antecubital; mb9 16:07 Follow up: Response: No adverse reaction mb9 10:49 Drug: ProTONIX (pantoprazole) 80 mg Route: IVP; Site: right hand; mb9 12:59 Follow up: Response: No adverse reaction mb9 11:00 Drug: D10 in Water [2 mL/kg] 250 ml Route: IVP; Site: right upper arm; aa5 12:59 Follow up: Response: No adverse reaction mb9 11:08 Drug: Calcium Gluconate 1 grams Route: IVPB; Infused Over: 10 mins; Site: right hand; aa5 11:37 Follow up: Response: No adverse reaction; IV Status: Completed infusion mb9 11:08 Drug: Insulin Regular Human 10 units {Co-Signature: aa5 (Merly Marti RN).} Route: mb9 IVP; Site: right hand; 12:59 Follow up: Response: No adverse reaction mb9 11:24 Drug: Albuterol - atroVENT (ipratropium) (3:1) (2.5 mg - 0.5 mg) 3 ml Route: Nebulizer; aa5 12:58 Follow up: Response: No adverse reaction mb9 11:24 Drug: Kayexalate (polystyrene) 45 grams Route: PO; aa5 12:58 Follow up: Response: No adverse reaction mb9 11:26 Drug: Sodium Bicarbonate 1 amp Route: IVP; Site: right upper arm; aa5 12:58 Follow up: Response: No adverse reaction mb9 11:47 Drug: ProTONIX (pantoprazole) 8 mg/hr Route: IV; Rate: 25 ml/hr; Site: right hand; mb9 11:50 Drug: Viscous Lidocaine Liquid (4 %) 5 ml Route: Mucous Membrane; mb9 12:59 Follow up: Response: No adverse reaction mb9 Medication: 10:00 VIS not applicable for this client. mb9 Outcome: 10:47 ER care complete, transfer ordered by MD. haines 20:32 Transferred by ground EMS to [facility], [facility] [place] [facility] [place], Transfer form completed. ha1 Note: by [facility] 20:32 Condition: stable 20:32 Discharge instructions given to patient, family, Instructed on the need for transfer, Demonstrated understanding of instructions. 20:41 Patient left the ED. ha1 Signatures: Dispatcher [employer] EDMS Maryse Saha Kimberly, Jose Guy RN, MD MD cha Martinez, Eric em1 Merly Marti RN RN aa5 Nicolasa Calvert RN RN ss Garcia, Victoria, RN RN vg1 Luciana Tejeda RN RN ha1 Rae Tolliver RN RN mb9 Merly Marti RN aa5 Corrections: (The following items were deleted from the chart) 10:23 09:53 PMHx: Hypertension; ss mb9 13:30 10:00 General: Appears distressed, uncomfortable, Behavior is cooperative, mb9 mb9 17:06 12:50 BP 73 / 48; Pulse 68bpm; Resp 18bpm; Pulse Ox 99%; Temp 97.3F; FFP increased to mb9 75 ml/hr. No adverse reaction noted; mb9 17:06 12:55 BP 92 / 46; Pulse 63bpm; Resp 18bpm; Pulse Ox 98%; Temp 97.3F; FFP increased to mb9 125 ml/hr. No adverse reaction noted; mb9 17:06 13:00 BP 92 / 43; Pulse 59bpm; Resp 20bpm; Pulse Ox 99%; Temp 97.3F; FFP increased to mb9 175ml/hr. No adverse reaction noted; mb9 17:06 13:15 BP 81 / 45; Pulse 58bpm; Resp 18bpm; Pulse Ox 100%; Temp 97.3F; FFP increased to mb9 400 ml/hr. No adverse reaction noted; mb9 17:06 14:00 BP 90 / 41; Pulse 58bpm; Resp 16bpm; Pulse Ox 95%; Temp 97.3F; FFP increased to mb9 75 ml/hr. No adverse reaction noted; mb9 17:06 14:05 BP 82 / 46; Pulse 59bpm; Resp 18bpm; Pulse Ox 98%; Temp 97.2F; FFP increased to mb9 125 ml/hr. No adverse reaction noted; mb9 17:06 14:10 BP 92 / 45; Pulse 56bpm; Resp 18bpm; Pulse Ox 98%; Temp 97.2F; FFP increased to mb9 175 ml/hr. No adverse reaction noted; mb9 17:06 15:30 BP 104 / 40; Pulse 59bpm; Resp 17bpm; Pulse Ox 100%; Temp 97.2F; PRBCs at 75 mb9 ml/hr. No adverse reaction noted; mb9
--- NOTE | 2022-02-15 10:48 | EDPHYS ---
Physician Documentation [facility] Name: Aravind Ball Age: 76 yrs Sex: Male : 1945 Arrival Date: 02/15/2022 Time: 09:45 Bed 2 Private MD: ED Physician Jose Taylor HPI: 02/15 10:26 This 76 yrs old Male presents to ER via EMS with complaints of General zaki Weakness. 10:26 weak, near syncope. The patient has experienced near-syncope, almost passed out, felt zaki dizzy, felt faint, felt generally weak. Onset: The symptoms/episode began/occurred just prior to arrival, this morning. Duration: This was a single episode, that lasted 30 second(s). Context: the episode(s) was witnessed, by family, daughter. Onset: The symptoms/episode began/occurred yesterday. Associated injury: Head/face:. Associated signs and symptoms: Pertinent positives: dizziness, weakness. Current symptoms: weakness. Severity of symptoms: At their worst the symptoms were moderate in the emergency department the symptoms have improved mildly. The patient has experienced similar episodes in the past, several times. Historical: - Allergies: 09:53 Iodinated Contrast Media - IV Dye; ss 09:53 phenylpropanolamine HCl; ss 09:53 Sulfa (Sulfonamide Antibiotics); ss 09:53 TETRACYCLINES; ss - PMHx: 09:53 COPD; Pulmonary embolisms 12 years ago; ss 10:17 Atrial Flutter; Hypotension; Diabetes mellitus; mb9 10:22 Lymphedema; mb9 10:22 One Kidney; mb9 - PSHx: 10:17 Knee surgery; Triple Hernia; mb9 - Immunization history:: Adult Immunizations up to date. - Social history:: Smoking status: Patient/guardian denies using tobacco, but has a distant history of tobacco abuse. - Family history:: not pertinent. ROS: 10:26 Constitutional: Negative for fever, chills, and weight loss, Eyes: Negative for injury, zaki pain, redness, and discharge, ENT: Negative for injury, pain, and discharge, Neck: Negative for injury, pain, and swelling, Respiratory: Negative for shortness of breath, cough, wheezing, and pleuritic chest pain, Back: Negative for injury and pain, : Negative for injury, bleeding, discharge, and swelling, MS/Extremity: Negative for injury and deformity, Neuro: Negative for headache, weakness, numbness, tingling, and seizure, Psych: Negative for depression, anxiety, suicide ideation, homicidal ideation, and hallucinations, Allergy/Immunology: Negative for hives, rash, and allergies, Endocrine: Negative for neck swelling, polydipsia, polyuria, polyphagia, and marked weight changes, Hematologic/Lymphatic: Negative for swollen nodes, abnormal bleeding, and unusual bruising. 10:26 Neck: Positive for 10:26 Cardiovascular: Positive for palpitations. 10:26 Abdomen/GI: Positive for black/tarry stool. 10:26 Neuro: Positive for near syncope, weakness. Exam: 10:26 Constitutional: This is a well developed, well nourished patient who is awake, alert, zaki and in no acute distress. Head/Face: Normocephalic, atraumatic. Eyes: Pupils equal round and reactive to light, extra-ocular motions intact. Lids and lashes normal. Conjunctiva and sclera are non-icteric and not injected. Cornea within normal limits. Periorbital areas with no swelling, redness, or edema. ENT: Nares patent. No nasal discharge, no septal abnormalities noted. Tympanic membranes are normal and external auditory canals are clear. Oropharynx with no redness, swelling, or masses, exudates, or evidence of obstruction, uvula midline. Mucous membranes moist. Neck: Trachea midline, no thyromegaly or masses palpated, and no cervical lymphadenopathy. Supple, full range of motion without nuchal rigidity, or vertebral point tenderness. No Meningismus. Chest/axilla: Normal chest wall appearance and motion. Nontender with no deformity. No lesions are appreciated. Respiratory: Lungs have equal breath sounds bilaterally, clear to auscultation and percussion. No rales, rhonchi or wheezes noted. No increased work of breathing, no retractions or nasal flaring. Back: No spinal tenderness. No costovertebral tenderness. Full range of motion. Male : Normal genitalia with no discharge or lesions. Skin: Warm, dry with normal turgor. Normal color with no rashes, no lesions, and no evidence of cellulitis. MS/ Extremity: Pulses equal, no cyanosis. Neurovascular intact. Full, normal range of motion. Neuro: Awake and alert, GCS 15, oriented to person, place, time, and situation. Cranial nerves II-XII grossly intact. Motor strength 5/5 in all extremities. Sensory grossly intact. Cerebellar exam normal. Normal gait. Psych: Awake, alert, with orientation to person, place and time. Behavior, mood, and affect are within normal limits. 10:26 Cardiovascular: Rate: bradycardic, Rhythm: regular, Pulses: Pulses are 4+ in bilateral radial, brachial, femoral, popliteal, posterior tibial and and dorsalis pedis arteries.. Heart sounds: normal, normal S1and S2, Edema: 3+ edema to level of left midcalf and right midcalf, pedal edema, that is moderate. 10:26 ECG was reviewed by the Attending Physician. Vital Signs: 09:56 BP 81 / 49; Pulse 53; Resp 22; Temp 98.2(O); Pulse Ox 99% on R/A; Weight 123.83 kg; mb9 Height 6 ft. 0 in. (182.88 cm); Pain 10; 10:07 BP 82 / 61; Pulse 47; Resp 22; Pulse Ox 98% ; mb9 10:15 BP 75 / 37; Pulse 56; Resp 20; Pulse Ox 99% ; mb9 10:25 BP 78 / 32; Pulse 51; Resp 18; Pulse Ox 100% ; mb9 11:00 BP 60 / 37; Pulse 53; Resp 22; Pulse Ox 100% ; mb9 11:15 BP 94 / 42; Pulse 53; Resp 18; Pulse Ox 100% ; mb9 11:30 BP 95 / 34; Pulse 57; Resp 16; Pulse Ox 100% ; mb9 11:45 BP 98 / 69; Pulse 70; Resp 18; Pulse Ox 98% ; mb9 12:00 BP 89 / 44; Pulse 74; Resp 15; Pulse Ox 100% ; mb9 12:15 BP 103 / 47; Pulse 64; Resp 18; Pulse Ox 97% ; mb9 12:30 BP 103 / 44; Pulse 64; Resp 18; Pulse Ox 98% ; mb9 12:45 BP 103 / 44; Pulse 68; Resp 18; Temp 97.5; Pulse Ox 96% ; mb9 13:55 BP 93 / 57; Pulse 56; Resp 18; Temp 97.3; Pulse Ox 98% ; mb9 15:25 BP 95 / 46; Pulse 57; Resp 18; Temp 97.3; Pulse Ox 100% ; mb9 16:55 BP 107 / 39; Pulse 58; Resp 18; Temp 97.5; Pulse Ox 100% on 2 lpm NC; mb9 18:32 BP 109 / 52; Pulse 58; Resp 18; Pulse Ox 96% on 2 lpm NC; mb9 19:30 BP 108 / 51; Pulse 58; Resp 16; Pulse Ox 100% on R/A; kl 20:31 BP 101 / 51; Pulse 60; Resp 19 S; Pulse Ox 98% on 2 lpm NC; ha1 09:56 Body Mass Index 37.03 (123.83 kg, 182.88 cm) mb9 12:45 Baseline vitals for FFP mb9 13:55 Unit 2 of FFP started at 50 ml/hr mb9 15:25 Baseline for PRBCs. Started at 50 ml/hr. No adverse reaction noted mb9 16:55 Time completed for RBC transfusion. See blood transfusion sheet for more information mb9 MDM: 09:48 Patient medically screened. zaki 10:35 Differential Diagnosis sepsis, flu. Differential Diagnosis: cardiac arrhythmia, zaki cerebrovascular accident, GI bleed, idiopathic syncope, sepsis, vasovagal episode. Data reviewed: vital signs, nurses notes, lab test result(s), EKG, radiologic studies, CT scan, plain films. Data interpreted: child monitor: rate is 47 beats/min, rhythm is regular, Pulse oximetry: on room air is 98 %. Test interpretation: by ED physician or midlevel provider: ECG, plain radiologic studies. Counseling: I had a detailed discussion with the patient and/or guardian regarding: the historical points, exam findings, and any diagnostic results supporting the discharge/admit diagnosis, lab results, radiology results. 02/15 09:50 Order name: Basic Metabolic Panel; Complete Time: 10:37 zaki 02/15 09:50 Order name: CBC with Diff; Complete Time: 10:15 02/15 09:50 Order name: LFT's; Complete Time: 10:37 zaki 02/15 09:50 Order name: Magnesium; Complete Time: 10:37 02/15 09:50 Order name: NT PRO-BNP; Complete Time: 10:37 02/15 09:50 Order name: PT-INR; Complete Time: 10:37 02/15 09:50 Order name: Troponin HS; Complete Time: 10:37 [facility] 02/15 09:50 Order name: Lactate w/ 2H reflex if indic. [facility] 02/15 09:50 Order name: Blood Culture Adult (2) [facility] 02/15 09:50 Order name: Urine Microscopic Only [facility] 02/15 09:50 Order name: SARS RAPID [facility] 02/15 10:16 Order name: Type And Screen [facility] 02/15 10:29 Order name: Bb Add On bd 02/15 09:50 Order name: XRAY Chest (1 view) [facility] 02/15 09:50 Order name: CT Stroke Brain w/o Contrast; Complete Time: 10:37 [facility] 02/15 10:31 Order name: Packed RBC Leukored [facility] 02/15 10:45 Order name: Bb Add On bd 02/15 10:51 Order name: Fresh Frozen Plasma [facility] 02/15 12:08 Order name: ABO/RH no charge [facility] 02/15 12:19 Order name: Urine Dipstick-Ancillary [facility] 02/15 14:46 Order name: Lactate Sepsis 2 HR Follow-up [facility] 02/15 09:50 Order name: EKG; Complete Time: 09:51 [facility] 02/15 09:50 Order name: Cardiac monitoring; Complete Time: 11:47 [facility] 02/15 09:50 Order name: EKG - Nurse/Tech; Complete Time: 11:47 [facility] 02/15 09:50 Order name: IV Saline Lock; Complete Time: 11:47 [facility] 02/15 09:50 Order name: Labs collected and sent; Complete Time: 11:47 [facility] 02/15 09:50 Order name: O2 Per Protocol; Complete Time: 11:47 [facility] 02/15 09:50 Order name: O2 Sat Monitoring; Complete Time: 11:47 [facility] 02/15 09:50 Order name: Urine Dipstick-Ancillary (obtain specimen); Complete Time: 12:19 [facility] 02/15 10:16 Order name: IV Saline Lock - Large Bore; Complete Time: 11:47 [facility] 02/15 10:41 Order name: Transfuse; Complete Time: 13:10 [facility] 02/15 10:43 Order name: Acosta; Complete Time: 12:08 [facility] 02/15 14:01 Order name: Misc. Order: obtain lactate sepsis; Complete Time: 14:20 ss EC:26 Rate is 45 beats/min. Rhythm is regular. QRS Prim is Normal. TX interval is normal. QRS zaki interval is prolonged at 110 msec. No Q waves. T waves are Normal. No ST changes noted. Clinical impression: Abnormal EKG without significant change and Sinus bradycardia. Interpreted by me. Reviewed by me. Administered Medications: 10:48 Drug: NS 0.9% 1000 ml Route: IV; Rate: 1 bolus; Site: right upper arm; mb9 11:45 Follow up: Response: No adverse reaction; IV Status: Completed infusion mb9 10:48 Drug: Rocephin (cefTRIAXone) 1 grams Route: IV; Rate: per protocol; Site: right upper mb9 arm; 14:21 Follow up: Response: No adverse reaction; IV Status: Completed infusion mb9 10:48 Drug: Pepcid (famotidine) 20 mg Route: IVP; Site: left antecubital; mb9 16:07 Follow up: Response: No adverse reaction mb9 10:49 Drug: ProTONIX (pantoprazole) 80 mg Route: IVP; Site: right hand; mb9 12:59 Follow up: Response: No adverse reaction mb9 11:00 Drug: D10 in Water [2 mL/kg] 250 ml Route: IVP; Site: right upper arm; aa5 12:59 Follow up: Response: No adverse reaction mb9 11:08 Drug: Calcium Gluconate 1 grams Route: IVPB; Infused Over: 10 mins; Site: right hand; aa5 11:37 Follow up: Response: No adverse reaction; IV Status: Completed infusion mb9 11:08 Drug: Insulin Regular Human 10 units {Co-Signature: aa5 (Merly Marti RN).} Route: mb9 IVP; Site: right hand; 12:59 Follow up: Response: No adverse reaction mb9 11:24 Drug: Albuterol - atroVENT (ipratropium) (3:1) (2.5 mg - 0.5 mg) 3 ml Route: Nebulizer; aa5 12:58 Follow up: Response: No adverse reaction mb9 11:24 Drug: Kayexalate (polystyrene) 45 grams Route: PO; aa5 12:58 Follow up: Response: No adverse reaction mb9 11:26 Drug: Sodium Bicarbonate 1 amp Route: IVP; Site: right upper arm; aa5 12:58 Follow up: Response: No adverse reaction mb9 11:47 Drug: ProTONIX (pantoprazole) 8 mg/hr Route: IV; Rate: 25 ml/hr; Site: right hand; mb9 11:50 Drug: Viscous Lidocaine Liquid (4 %) 5 ml Route: Mucous Membrane; mb9 12:59 Follow up: Response: No adverse reaction mb9 Disposition Summary: 02/15/22 10:47 Transfer Ordered Transfer Location: [facility] zaki Reason: Higher level of care zaki Condition: Fair zaki Problem: new zaki Symptoms: have improved zaki Accepting Physician: to [facility] icu/imu(02/15/22 20:41) ha1 Diagnosis - GI Bleed/ Gastrointestinal hemorrhage, unspecified zaki - Weakness zaki - Syncope Near zaki - Acute kidney failure, unspecified - on chronic zaki - Hyperkalemia zaki - Hypotension, unspecified zaki - Obesity due to excess calories zaki - Abnormal coagulation profile zaki - 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 Total time: 45 minutes Signatures: Dispatcher [employer] Jose Lee MD MD cha Calderon, Audri, RN RN aa5 Nicolasa Calvert RN RN ss Ayala, Heidy RN RN ha1 Rae Tolliver RN RN mb9 Merly Marti RN aa5 Corrections: (The following items were deleted from the chart) 10:23 09:53 PMHx: Hypertension; kay abbott 10:47 10:47 to [facility] icu/imu zaki zaki 20:41 10:47 to [facility] icu/imu zaki ha1
[2022-02-15] MEDS ORDERED: INSULIN -REGULAR HUMAN 50 UNIT/0.5 ML ML ONE (10:56)
[2022-02-15] MEDS ORDERED: IPRATROPIUM BROM 0.5MG/2.5ML ONE (10:59)
[2022-02-15] MEDS ORDERED: SOD POLYSTYREN SUL 15 GM/60 ML UCUP ONE (10:59)
[2022-02-15] MEDS ORDERED: ALBUTEROL 2.5 MG/3 ML NEB SOL ONE (10:59)
[2022-02-15] MEDS ORDERED: LIDOCAINE VISCOUS 2% SOLN 15 ML UDC ONE (11:00)
[2022-02-15] MEDS ORDERED: D10W 250 ML IV ONE (11:00)
[2022-02-15] MEDS ORDERED: CALCIUM GLUCONATE 1 GM IVPB 1 GM/50 ML BAG IV ONE (11:00)
[2022-02-15] MEDS ORDERED: PANTOPRAZOLE INJ 80 MG in NA CHLORIDE 0.9% 250 ML IV ONE (11:15)
--- NOTE | 2022-02-15 11:15 | RAD REPORT ---
EXAM DESCRIPTION: RAD - Chest Single View - 02/15/2022 10:30 am CLINICAL HISTORY: COUGH Chest pain. COMPARISON: Chest Single View dated 07/07/2020; Chest Single View dated 04/12/2017; Chest Pa And Lat (2 Views) dated 06/29/2015; CHEST SINGLE VIEW dated 12/03/2012 FINDINGS: Portable technique limits examination quality. The lungs are mildly emphysematous but grossly clear. The heart is mildly prominent with a tortuous t horacic aorta. No displaced fractures. IMPRESSION: No acute intrathoracic process suspected.
[2022-02-15 12:18] LABS: Urine Blood Negative (Negative); Urine Glucose Negative (Negative); Urine Protein Trace (Negative); Urine Specific Gravity 1.015 (1.005-1.030); Urine pH 5.5 (5.0-7.0)
[2022-02-15] MEDS ORDERED: DIPHENHYDRAMINE 50 MG/ML VIAL ONE (12:29)
[2022-02-15] MEDS ORDERED: ACETAMINOPHEN 325 MG TABLET ONE (12:29)
[2022-02-15 12:38] LABS: Transitional Epithelial <5 /HPF (None Seen); Urine Bacteria None Seen /HPF (<20); Urine Mucus Slight /HPF (None Seen); Urine RBC <5 /HPF (None Seen)
[2022-02-15 21:33] VITALS: TEMP 97.5
[2022-02-15 21:37] VITALS: BP 101/51; O2SAT 98
--- NOTE | 2022-02-16 08:05 | EKG ---
Test Date: 2022-02-15 Test Time: 10:07:35 Resident Caregiver: MANOHAR MEASUREMENT RESULTS: Intervals: Rate: 45 DC: QRSD: 140 QT: 474 QTc: 410 [place]: P: DC: QRS: -76 T: 18 INTERPRETIVE STATEMENTS: Wide QRS rhythm Left axis deviation Right bundle branch block Abnormal ECG Compared to ECG 07/07/2020 16:57:31 Uncertain supraventricular rhythm now present Sinus rhythm no longer present Fusion complex(es) no longer present First degree AV block no longer present Myocardial infarct finding no longer present Electronically Signed On 02-16-22 08:01:57 ALFALFA DEHYDRATOR OPERATOR by Jt Wolff
== END 2022-02-15 20:41 | disposition short-term general hospital (02) ==
LOC: ER 09:44
PROC: 30233K1 Transfusion of Nonautologous Frozen Plasma into Peripheral Vein, Percutaneous Approach (ICD-10-PCS; principal; 2022-02-15)
PROC: 30233N1 Transfusion of Nonautologous Red Blood Cells into Peripheral Vein, Percutaneous Approach (ICD-10-PCS; 2022-02-15)
DX: K92.2 Gastrointestinal hemorrhage, unspecified (principal); R53.1 Weakness; R55 Syncope and collapse; E11.22 Type 2 diabetes mellitus with diabetic chronic kidney disease; N18.9 Chronic kidney disease, unspecified; N17.9 Acute kidney failure, unspecified; I95.9 Hypotension, unspecified; R79.1 Abnormal coagulation profile; R00.1 Bradycardia, unspecified; E87.5 Hyperkalemia; E66.09 Other obesity due to excess calories; J44.9 Chronic obstructive pulmonary disease, unspecified; I48.91 Unspecified atrial fibrillation; Z79.01 Long term (current) use of anticoagulants; Z88.1 Allergy status to other antibiotic agents; Z88.2 Allergy status to sulfonamides; Z88.8 Allergy status to other drugs, medicaments and biological substances; Z91.041 Radiographic dye allergy status; Z20.822 Contact with and (suspected) exposure to COVID-19
CPT/HCPCS: 93005; 87040 ×2; 85025; 80048; 36415; 86900; 83735; 86850; 85610; 86901; 80076; 83605 ×2; 84484; 86927; 83880; 70450; 71045; 94640; 51702; 99285; 87811; 36430; J1200; J1815; J7613; J7644; C9113 ×2; J0610; P9016; P9059; P9017; J7050; J7040; J7030; 81003; 81015

== ENCOUNTER → 2022-08-01 | Day surgery (SDC) | payer OTHER | LOC: PICC 15:52 | PROVIDERS: ATTEND Internal Medicine | PROC: 02HV33Z Insertion of Infusion Device into Superior Vena Cava, Percutaneous Approach (ICD-10-PCS; principal; 2022-08-01) | DX: N39.0 Urinary tract infection, site not specified (principal); I12.9 Hypertensive chronic kidney disease with stage 1 through stage 4 chronic kidney disease, or unspecified chronic kidney disease; N18.30 Chronic kidney disease, stage 3 unspecified; N28.1 Cyst of kidney, acquired; R80.9 Proteinuria, unspecified ==

== ENCOUNTER 2024-12-02 10:05 | Inpatient (IN) | payer OTHER ==
[2024-12-02 10:30] LABS: Absolute Lymphocytes (CBC) 1.1 K/uL (0.7-4.9); Hematocrit 33.9 % (39.6-49.0); Hemoglobin 11.0 g/dL (13.6-17.9); MCH 33.1 pg (27.0-35.0); MCHC 32.3 g/dL (32.0-36.0); MCV 102.6 fL (80-100); MPV 8.4 fL (7.6-11.3); Nucleated RBC Absolute Count 0.0 (0-0); Nucleated Red Blood Cells % 0.1 % (0-0); RBC Red Blood Cell Count 3.31 M/uL (4.33-5.43); White Blood Count 4.80 thou/uL (4.3-10.9)
[2024-12-02 10:32] LABS: Arterial Blood Carboxyhemoglob 0.9 % (0.0-1.5); Blood Gas Oxyhemoglobin 97.4 % (94.0-97.0); Blood O2 Saturation 99.9 % (92.0-98.5)
--- NOTE | 2024-12-02 10:32 | RAD REPORT ---
Procedure: Chest Single View HISTORY: Endotracheal tube placement FINDINGS: Endotracheal tube has been inserted with its tip about 3 cm above the andrey
[2024-12-02 10:33] LABS: Blood Gas Inspired Oxygen 100.0 %
--- NOTE | 2024-12-02 10:33 | RAD REPORT ---
Exam:Abdomen 1 View (KUB) Clinical history: Nasogastric tube placement FINDINGS: Nasogastric tube has been inserted with its tip 4 cm into the stomach
[2024-12-02 10:36] LABS: PT Prothrombin Time 13.6 SECONDS (10-13.0); Protime INR 1.21
[2024-12-02 10:53] LABS: ALT/SGPT 59.0 U/L (16-61); Albumin 3.1 g/dL (3.4-5.0); Albumin/Globulin Ratio 0.9 (1.1-1.8); Alkaline Phosphatase 104.0 U/L (45-117); Anion Gap 12.8 mEq/L (5.0-15.0); BUN Blood Urea Nitrogen 55.0 mg/dL (7-18); Bilirubin Indirect, Calculated 0.2 mg/dL (0.2-0.8); Globulin 3.5 g/dL (2.3-3.5); Glucose Level 181.0 mg/dL (74-106)
[2024-12-02 11:02] LABS: AST/SGOT 96.0 U/L (15-37); Potassium 3.8 mEq/L (3.5-5.1)
[2024-12-02 11:03] LABS: Magnesium 2.5 mg/dL (1.6-2.4)
[2024-12-02 11:04] LABS: Troponin High Sensitivity 372.6 pg/mL (<58.9)
--- NOTE | 2024-12-02 11:19 | RAD REPORT ---
EXAMINATION: CT HEAD WITHOUT CONTRAST CT CERVICAL SPINE WITHOUT CONTRAST CLINICAL INDICATION: Unresponsive. CPR TECHNIQUE: Axial CT images from the skull base to the vertex without intravenous contrast. Axial CT i mages through the cervical spine were obtained without intravenous contrast. Sagittal and coronal reformatted images were created from the data set. Coronal and sagittal reformatted images were creat ed from the data set. One or more of the following dose reduction techniques were used: Automated exposure control, adjustment of the mA and/or kV according to patient size, and/or iterative reconstr uction. Unless otherwise specified, incidental findings do not require dedicated imaging follow-up. [id number]. Comparison: [address] FINDINGS: An intracranial bleed is not seen. Ventricles are normal in caliber. No significant hypodensity within the brain. Cerebral atrophy. No extra-axial fluid collection. No fluid within the sinuses/mastoids No fracture or dislocation is seen involving the cervical spine. Mild chronic anterior subluxation C5 on C6 and C6-C7. Chronic loss of the normal lordosis of the cervical spine. Spondylosis cervical spine IMPRESSION: No acute intracranial abnormality noted A cervical fracture is not seen. 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
--- NOTE | 2024-12-02 11:36 | RAD REPORT ---
EXAM: CTA of the chest, abdomen and pelvis HISTORY: Cardiac arrest COMPARISON: None TECHNIQUE: Multiple contiguous axial images were obtained a CTA of the chest and abdomen with contras t per aortic dissection protocol. Sagittal and coronal 3-D MIP reformats were performed. 100 cc Isovue-370 administered intravenously.Automated exposure control, adjustment of the mA and kV accordi ng to the patient size, and iterative reconstruction. Unless otherwise specified, incidental findings do not require dedicated imaging follow-up. FINDINGS: Endotracheal tube 3 cm above the andrey. Nasogastric tube 1.5 cm into the stomach An aortic dissection not seen. No aortic aneurysm Celiac, SMA and ABBI do not demonstrate a significant abnormality. Right lower lobe atelectasis.. Occlusion right lower lobe bronchus. Small right pleural effusion Multiple gallstones. 2 cm hypodense lesion pancreatic head. Liver, spleen unremarkable. 2.1 cm simple cyst right kidney. Tiny nonobstructing left renal calculus. Filter within the IVC. No evidence of diverticulitis. The entire right lateral abdomen is not included IMPRESSION: No evidence of an aortic dissection Nasogastric tube 1.5 cm into the stomach. It should be advanced. Occlusion right lower lobe bronchus right lower lobe atelectasis. Cholelithiasis without evidence cholecystitis 2 cm hypodense lesion pancreatic head. Pancreatic MRI recommended
--- NOTE | 2024-12-02 12:23 | EDPHYS ---
Physician Documentation [facility] Name: Aravind Ball Age: 79 yrs Sex: Male : 1945 Arrival Date: 12/02/2024 Time: 10:05 Bed 3 Private MD: ED Physician Berlin Callahan HPI: 12/02 10:36 This 79 yrs old Male presents to ER via EMS with complaints of CPR. ms3 10:36 79-year-old male with past medical history of atrial flutter, COPD, diabetes, ms3 hypertension, lymphedema, 1 kidney, PE presents to the emergency department status post cardiac arrest. EMS states they were called to the patient that was unresponsive. On their arrival CPR was being performed by [facility]. Their initial presenting rhythm was ventricular fibrillation and patient was defibrillated. CPR was continued. At the rhythm check patient noted to be in V-fib and patient was shocked. Patient did receive 1 epinephrine. Patient was intubated with a 7.5 ET tube. A right femoral IO was placed and amiodarone drip started. EMS notes patient's blood glucose level 185.. Historical: - Allergies: 10:11 Iodinated Contrast Media - IV Dye; bp 10:11 phenylpropanolamine HCl; bp 10:11 Sulfa (Sulfonamide Antibiotics); bp 10:11 TETRACYCLINES; bp - PMHx: 10:11 atrial flutter; COPD; diabetes mellitus; hypotension; lymphedema; one kidney; Pulmonary bp embolisms 12 years ago; - PSHx: 10:11 knee surgery; Triple Hernia; bp - Immunization history:: Adult Immunizations up to date. - Infectious Disease History:: Denies. - Social history:: Smoking status: unknown. ROS: 10:36 Unable to obtain ROS due to Unresponsive, ms3 Exam: 10:36 Head/Face: Normocephalic, atraumatic. ms3 10:36 Constitutional: The patient appears obviously ill, 10:36 Eyes: Pupils: pinpoint, bilaterally, Conjunctiva: normal, Sclera: no appreciated abnormality, 10:36 Cardiovascular: Rate: normal, Rhythm: regular, Pulses: no pulse deficits are appreciated, Heart sounds: normal, normal S1and S2, 10:36 Respiratory: Bilateral breath sounds present with ventilation, 10:36 Abdomen/GI: Inspection: abdomen appears normal, obese Bowel sounds: normal, Palpation: soft, 10:36 Skin: Appearance: Color: normal in color, Temperature: normal temperature, Moisture: dry, petechiae, not noted, ecchymosis, not noted, flushing, not noted, diaphoresis is not appreciated, 10:36 Neuro: seizure activity, is not displayed by the patient, Abnormal movements: there are no abnormal movements, 10:36 ECG was reviewed by the Attending Physician. ms3 Vital Signs: 10:11 BP 98 / 54; Pulse 83; Resp 16; Temp 98; Pulse Ox 100% ; Weight 122.47 kg; bp 11:00 BP 110 / 50; Pulse 76; Resp 16; Pulse Ox 100% ; bp 11:29 BP 107 / 64; Pulse 67; Resp 25; Pulse Ox 100% ; bp 12:00 BP 120 / 72; Pulse 71; Resp 13; Pulse Ox 100% ; bp 12:30 BP 122 / 71; Pulse 65; Resp 13; Pulse Ox 100% ; bp 13:00 BP 134 / 55; Pulse 68; Resp 13; Pulse Ox 100% ; bp 13:30 BP 142 / 74; Pulse 77; Resp 14; Pulse Ox 100% ; bp 14:00 BP 146 / 55; Pulse 76; Resp 13; Pulse Ox 100% ; bp 15:00 BP 132 / 82; Pulse 66; Resp 14; Pulse Ox 100% ; bp 16:03 BP 130 / 109; Pulse 62; Resp 14 A; Pulse Ox 100% on ETT vent; FiO2 70 %; jb4 Concha Coma Score: 10:36 Eye Response: none(1). Motor Response: none(1). Verbal Response: none(1). Total: 3. ms3 MDM: 10:08 Medical Screening Exam initiated ms3 10:36 Differential diagnosis: arrythmia, cardiac arrest, respiratory arrest, Aortic ms3 dissection. 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 She states patient complained of chest pain and bilateral heavy arms prior to collapsing.. 12:05 ED course: Patient's would like patient transferred to his campaign consultant, Dr Nielson, ms3 at [facility]. Spoke with Dr Nielson and he will see if there is a bed at [facility] and will call back.. 12:23 Data reviewed: vital signs, nurses notes, lab test result(s), EKG, radiologic studies, ms3 and as a result, I will admit patient. Consideration of Admission/Observation Patient was admitted/placed on observation. Management of patient was discussed with the following: Hospitalist: Manpreet on behalf of Dr Rucker. Composing Machine Operator: Dr Nielson- patient with cardiac arrest in 2021. [facility] does not have beds. Dr Bryan- would like heparin ggt and echo. I considered the following discharge prescriptions or medication management in the emergency department Medications were administered in the Emergency Department. See MAR. Independent interpretation of the following test(s) in the Emergency Department EKG: See my EKG interpretation above CT Scan: My interpretation is CT aortic dissection images reviewed by me without dissection noted. CT head images reviewed did not reveal ICH. Counseling: I had a detailed discussion with the patient and/or guardian regarding the historical points, exam findings, and any diagnostic results supporting the discharge/admit diagnosis, lab results, radiology results, the need for further work-up and treatment in the hospital. ED course: Discussed plan for admission with patient's . Patient's understands and agrees with plan. All questions were answered. 13:36 ED course: Discussed case with Dr Bob at [facility]. Will accept if ms3 cardiology will accept. Discussed case with Dr Rivero. Patient would benefit if advanced heart failure going to the [facility]. Transfer center notified. . 14:12 ED course: Discussed case with Dr Jorgensen and he accepts patient to [facility]. 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 Discussed with Dr Bryan and Dr andrés Rucker. Dr Rucker accepts admission and Dr Bryan will consult. . 12/02 10:09 Order name: Basic Metabolic Panel; Complete Time: 11:13 ms3 12/02 10:09 Order name: CBC with Diff; Complete Time: 11: ms3 12/02 10:09 Order name: LFT's; Complete Time: 11:13 ms3 12/02 10:09 Order name: Magnesium; Complete Time: 11:13 ms3 12/02 10:09 Order name: NT PRO-BNP; Complete Time: 11:13 ms3 12/02 10:09 Order name: PT-INR; Complete Time: 11:13 ms3 12/02 10:09 Order name: Troponin HS; Complete Time: 11:13 ms3 12/02 10:12 Order name: ABG; Complete Time: 11:13 ms3 12/02 15:19 Order name: CBC with Automated Diff EDMS 12/02 15:19 Order name: CBC with Automated Diff EDMS 12/02 15:19 Order name: CBC with Automated Diff EDMS 12/02 15:19 Order name: CBC with Automated Diff EDMS 12/02 15:19 Order name: Comprehensive Metabolic Panel EDMS 12/02 15:19 Order name: Comprehensive Metabolic Panel EDMS 12/02 15:19 Order name: Comprehensive Metabolic Panel EDMS 12/02 15:19 Order name: Comprehensive Metabolic Panel EDMS 12/02 15:19 Order name: Comprehensive Metabolic Panel EDMS 12/02 15:19 Order name: Comprehensive Metabolic Panel EDMS 12/02 15:19 Order name: Comprehensive Metabolic Panel EDMS 12/02 15:19 Order name: Comprehensive Metabolic Panel EDMS 12/02 15:19 Order name: Magnesium EDMS 12/02 15:19 Order name: Magnesium EDMS 12/02 15:19 Order name: Magnesium EDMS 12/02 15:19 Order name: Magnesium EDMS 12/02 15:19 Order name: Magnesium EDMS 12/02 15:19 Order name: Magnesium EDMS 12/02 15:19 Order name: Magnesium EDMS 12/02 15:19 Order name: Magnesium EDMS 12/02 15:19 Order name: Phosphorus EDMS 12/02 15:19 Order name: Phosphorus EDMS 12/02 15:19 Order name: Phosphorus EDMS 12/02 15:19 Order name: Phosphorus EDMS 12/02 15:19 Order name: Phosphorus EDMS 12/02 15:19 Order name: Phosphorus EDMS 12/02 15:19 Order name: Phosphorus EDMS 12/02 15:19 Order name: Phosphorus EDMS 12/02 15:19 Order name: T4 Free EDMS 12/02 15:19 Order name: T4 Free EDMS 12/02 15:19 Order name: Thyroid Stimulating Hormone EDMS 12/02 15:19 Order name: Thyroid Stimulating Hormone EDMS 12/02 15:19 Order name: Troponin High Sensitivity EDMS 12/02 15:19 Order name: Troponin High Sensitivity EDMS 12/02 15:19 Order name: Troponin High Sensitivity EDMS 12/02 15:20 Order name: CBC with Automated Diff EDMS 12/02 15:20 Order name: CBC with Automated Diff EDMS 12/02 15:20 Order name: CBC with Automated Diff EDMS 12/02 15:20 Order name: CBC with Automated Diff EDMS 12/02 10:09 Order name: XRAY Chest (1 view); Complete Time: 11:13 ms3 12/02 10:09 Order name: Abdomen 1 View (KUB) XRAY; Complete Time: 11:13 ms3 12/02 10:09 Order name: CT Head C Spine; Complete Time: 11:41 ms3 12/02 10:28 Order name: CT Aorta for Dissection; Complete Time: 11:41 ms3 12/02 12:48 Order name: Echo with Doppler EDMS 12/02 15:19 Order name: Echo with Doppler EDMS 12/02 15:22 Order name: Respiratory Therapy Consult EDMS 12/02 10:09 Order name: Cardiac monitoring; Complete Time: 10:16 ms3 12/02 10:09 Order name: EKG - Nurse/Tech; Complete Time: 10:16 ms3 12/02 10:09 Order name: IV Saline Lock; Complete Time: 10:16 ms3 12/02 10:09 Order name: Labs collected and sent; Complete Time: 11:16 ms3 12/02 10:09 Order name: O2 Per Protocol; Complete Time: 10:17 ms3 12/02 10:09 Order name: O2 Sat Monitoring; Complete Time: 10:17 ms3 12/02 11:47 Order name: Misc. Order: Vent; Complete Time: 12:27 ms3 EC:36 Rate is 82 beats/min. Left axis deviation noted. QRS interval is prolonged. Clinical ms3 impression: ventricular paced. Interpreted by me. Reviewed by me. Administered Medications: 10:10 Drug: Norepinephrine IV 0.1 mcg/kg/min IV at calculated rate See Administration bp Instructions; (Standard concentration 4 mg / 250 mL D5W); Recommended max rate 3 mcg/kg/min; Titrate 0.05 mcg/kg/min as often as every 5 minutes to achieve goal (see titration policy); Goal parameter MAP greater than 65 mmHg. Route: IV; Rate: calculated rate; Site: left forearm; 15:03 Follow up: IV Status: Infusion continued upon transfer bp 12:55 Drug: Heparin (MT Drip) 12 units/kg/hr - ([place] [address] units, D5W IV 500 ml) IV at bp calculated rate Per protocol; Max initial rate 1000 units/hr {Co-Signature: nomi (Inna Ponce RN).} Route: IV; Rate: calculated rate; Site: right antecubital; 15:02 Follow up: IV Status: Infusion continued upon transfer bp 12:55 Drug: Heparin (MT-Bolus No thrombolytic) - HEParin IVP 60 units/kg IVP once; Max 5000 bp units {Co-Signature: 3 (Inna Ponce RN).} Route: IVP; Site: right antecubital; 15:02 Follow up: Response: No adverse reaction bp Disposition: 15: Chart complete. ms3 Disposition Summary: 12/02/24 15:11 Hospitalization Ordered Notes: Hospitalization Status: Inpatient Admission(12/02/24 15:11) ms3 Provider: Milton Rucker(12/02/24 15:11) ms3 Location: Intensive Care Unit(12/02/24 15:11) ms3 Condition: Guarded(12/02/24 15:11) ms3 Problem: new(12/02/24 15:11) ms3 Symptoms: are unchanged(12/02/24 15:11) ms3 Bed/Room Type: Standard(12/02/24 15:11) ms3 Room Assignment: 5-(12/02/24 15:17) ss Diagnosis - Cardiac arrest, cause unspecified(12/02/24 15:11) ms3 - Acute respiratory failure(12/02/24 15:11) ms3 - Subsequent non-ST elevation (NSTEMI) myocardial infarction(12/02/24 15:11) ms3 Forms: - Medication Reconciliation Form ms3 - SBAR form ms3 - Leadership Thank You Letter ms3 Signatures: Dispatcher [employer] EDMS Maryse Saha Shelby, RN RN ss Devon Victoria, WINIFRED RN Berlin Gallo DO DO ms3 Inna Ponce RN ab3 Corrections: (The following items were deleted from the chart) 10:09 10:09 BASIC METABOLIC PANEL+C.LAB.BRZ ordered. EDMS EDMS 10:09 10:09 CBC+H.LAB.BRZ ordered. EDMS EDMS 10:09 10:09 HEPATIC FUNCTION+C.LAB.BRZ ordered. EDMS EDMS 10: 10:09 MAGNESIUM+C.LAB.BRZ ordered. EDMS EDMS 10:09 10:09 PROBNP+C.LAB.BRZ ordered. EDMS EDMS 10:09 10:09 PROTIME (+INR)+COAG.LAB.BRZ ordered. EDMS EDMS 10:09 10:09 Troponin High Sensitivity+C.LAB.BRZ ordered. EDMS EDMS 10:09 10:09 Chest Single View+RAD.RAD.BRZ ordered. EDMS EDMS 10:09 10:09 Abdomen 1 View (KUB)+RAD.RAD.BRZ ordered. EDMS EDMS 10:28 10:28 Angio Aorta For Dissection+CT.RAD.BRZ ordered. EDMS EDMS 12:40 12:23 Inpatient Admission ms3 ms3 12:40 12:23 Milton Rucker ms3 ms3 12:40 12:23 Intensive Care Unit ms3 ms3 12:40 12:23 Critical ms3 ms3 12:40 12:23 new ms3 ms3 12:40 12:23 are unchanged ms3 ms3 12:40 12:23 Standard ms3 ms3 12:40 12:23 ms3 ms3 12:40 12:23 Cardiac arrest, cause unspecified ms3 ms3 12:40 12:23 Acute respiratory failure ms3 ms3 12:40 12:23 Subsequent non-ST elevation (NSTEMI) myocardial infarction ms3 ms3 12:48 12:27 EC Echo M-Mode 2D Only+ECHO.RAD.BRZ ordered. EDMS EDMS 15: 12:41 Dr ms3 ms3 15: 12:41 [facility] ms3 ms3 15: 12:41 Higher level of care ms3 ms3 15: 12:41 Stable ms3 ms3 15: 12:41 new ms3 ms3 15: 12:41 are unchanged ms3 ms3 15: 12:41 Cardiac arrest, cause unspecified ms3 ms3 15: 12:41 Acute respiratory failure ms3 ms3 15: 12:41 Subsequent non-ST elevation (NSTEMI) myocardial infarction ms3 ms3 15:17 15:11 ms3 bd 15:17 15:17 5- bd ss
--- NOTE | 2024-12-02 12:23 | ER ---
Nurse's Notes [facility] Name: Aravind Ball Age: 79 yrs Sex: Male : 1945 Arrival Date: 12/02/2024 Time: 10:05 Bed 3 Private MD: Diagnosis: Cardiac arrest, cause unspecified;Acute respiratory failure;Subsequent non-ST elevation (NSTEMI) myocardial infarction Presentation: 12/02 10:08 Chief complaint: EMS states: ROSC AFTER CPR. Care prior to arrival: Assisted bp ventilation, Oral intubation, CPR via thumper performed by EMS Medication(s) given: 1 AMP EPI, 100 MG KETAMINE. Care prior to arrival: IV initiated. R FEMUR IO Glucose check: 185. Compressions began prior to arrival. 10:08 Method Of Arrival: EMS: [facility] bp 10:08 Acuity: HERNÁN 1 bp 10:13 Coronavirus screen: At this time, the client does not indicate any symptoms associated bp with coronavirus-19. Ebola Screen: No symptoms or risks identified at this time. Initial Sepsis Screen: Does the patient meet any 2 criteria? No. Patient's initial sepsis screen is negative. Does the patient have a suspected source of infection? No. Patient's initial sepsis screen is negative. Risk Assessment: Do you want to hurt yourself or someone else? Patient reports no desire to harm self or others. Onset of symptoms is unknown. Triage Assessment: 10:13 General: Appears obese, Behavior is unresponsive. Pain: Unable to use pain scale. bp Patient is unresponsive. EENT: No deficits noted. Neuro: Level of Consciousness is unresponsive. Cardiovascular: Rhythm is sinus rhythm. Respiratory: Ventilator assessment: ET Tube: 7.5 Ventilator Mode: Assist Control (AC) Tidal Volume: 450 Respiratory Rate: 16 FiO2: 60 PEEP: 5. GI: No signs and/or symptoms were reported involving the gastrointestinal system. : No signs and/or symptoms were reported regarding the genitourinary system. Derm: No deficits noted. Musculoskeletal: No deficits noted. Historical: - Allergies: 10:11 Iodinated Contrast Media - IV Dye; bp 10:11 phenylpropanolamine HCl; bp 10:11 Sulfa (Sulfonamide Antibiotics); bp 10:11 TETRACYCLINES; bp - PMHx: 10:11 atrial flutter; COPD; diabetes mellitus; hypotension; lymphedema; one kidney; Pulmonary bp embolisms 12 years ago; - PSHx: 10:11 knee surgery; Triple Hernia; bp - Immunization history:: Adult Immunizations up to date. - Infectious Disease History:: Denies. - Social history:: Smoking status: unknown. Screenin:11 Abuse screen: Denies threats or abuse. Denies injuries from another. Nutritional bp screening: No deficits noted. Tuberculosis screening: No symptoms or risk factors identified. 10:15 [facility] ED Fall Risk Assessment (Adult) History of falling in the last 3 months, bp including since admission No falls in past 3 months (0 pts) Confusion or Disorientation No (0 pts) Intoxicated or Sedated Yes (3 pts) Impaired Gait No (0 pts) Mobility Assist Device Used No (0 pt) Altered Elimination Yes (1 pt) Score/Fall Risk Level 0 - 2 = Low Risk Maintained a safe environment. Assessment: 10:08 CPR assessment: unresponsive, pupils pinpoint, mechanical ventilation. Cardiac rhythm bp is SR. General: Appears distressed, obese, Behavior is unresponsive. Neuro: Level of Consciousness is unresponsive, Oriented to none. EENT: No deficits noted. Cardiovascular: Rhythm is sinus rhythm. Respiratory: Airway via oral intubation. GI: No signs and/or symptoms were reported involving the gastrointestinal system. : No signs and/or symptoms were reported regarding the genitourinary system. Derm: No deficits noted. 10:30 Reassessment: Dr. Callahan speaking with at this time,, updating her on patients ss condition and plan of care. 10:36 Reassessment: Pt to CT now VIA stretcher on monitor with WINIFRED Osorio, Jen RT and [facility] commercial kitchen service technician. 11:01 Reassessment: RETURNED FROM CT. bp 11:07 Reassessment: interrogated [employer] Pacemaker. Dr. Callahan notified. Awaiting for report ss to print. 12:00 Reassessment: No changes from previously documented assessment. Patient is alert, bp oriented x 3, equal unlabored respirations, skin warm/dry/pink. 14:00 Reassessment: TRANSFER IN PROCESS, PENDING RESPONSE. bp 15:00 Reassessment: No changes from previously documented assessment. Patient is alert, bp oriented x 3, equal unlabored respirations, skin warm/dry/pink. 16:03 Reassessment: Pt remains intubated, drips infusing without issue. jb4 Vital Signs: 10:11 BP 98 / 54; Pulse 83; Resp 16; Temp 98; Pulse Ox 100% ; Weight 122.47 kg; bp 11:00 BP 110 / 50; Pulse 76; Resp 16; Pulse Ox 100% ; bp 11:29 BP 107 / 64; Pulse 67; Resp 25; Pulse Ox 100% ; bp 12:00 BP 120 / 72; Pulse 71; Resp 13; Pulse Ox 100% ; bp 12:30 BP 122 / 71; Pulse 65; Resp 13; Pulse Ox 100% ; bp 13:00 BP 134 / 55; Pulse 68; Resp 13; Pulse Ox 100% ; bp 13:30 BP 142 / 74; Pulse 77; Resp 14; Pulse Ox 100% ; bp 14:00 BP 146 / 55; Pulse 76; Resp 13; Pulse Ox 100% ; bp 15:00 BP 132 / 82; Pulse 66; Resp 14; Pulse Ox 100% ; bp 16:03 BP 130 / 109; Pulse 62; Resp 14 A; Pulse Ox 100% on ETT vent; FiO2 70 %; jb4 Concha Coma Score: 10:36 Eye Response: none(1). Motor Response: none(1). Verbal Response: none(1). Total: 3. ms3 ED Course: 10:00 Client placed on continuous cardiac and pulse oximetry monitoring. NIBP monitoring ab3 applied. gambling monitor on. Pulse ox on. 10:07 Patient arrived in ED. bp 10:08 Berlin Callahan DO is Attending Physician. ms3 10:09 Triage completed. bp 10:11 Patient has correct armband on for positive identification. bp 10:11 EKG done, by ED staff, reviewed by Berlin Callahan DO. ab3 10:13 Arm band placed on. bp 10:16 Devon Victoria, RN is Primary Nurse. bp 10:17 Inserted saline lock: 20 gauge in left antecubital area, using aseptic technique. Blood bp collected. Flushed with 10 mL NS. 10:21 XRAY Chest (1 view) In Process Unspecified. EDMS 10:21 Abdomen 1 View (KUB) XRAY In Process Unspecified. EDMS 10:21 ABG Sent. ss 10:21 Basic Metabolic Panel Sent. ss 10:21 CBC with Diff Sent. ss 10:21 LFT's Sent. ss 10:22 Magnesium Sent. ss 10:22 NT PRO-BNP Sent. ss 10:22 PT-INR Sent. ss 10:22 Troponin HS Sent. ss 10:35 Inserted saline lock: 20 gauge in right antecubital area, using aseptic technique. ss Blood collected. Flushed with 10 mL NS. 10:59 CT Head C Spine In Process Unspecified. EDMS 10:59 CT Aorta for Dissection In Process Unspecified. EDMS 11:01 No provider procedures requiring assistance completed. bp 12:22 Milton Rucker is Hospitalizing Provider. ms3 13:00 initiated transfer to [facility]. bd 15:02 Patient transferred, IV remains in place. bp 15:09 Milton Rucker is Hospitalizing Provider. ms3 15:[address] Callahan,pt will be admitted to [facility]. bd Administered Medications: 10:10 Drug: Norepinephrine IV 0.1 mcg/kg/min IV at calculated rate See Administration bp Instructions; (Standard concentration 4 mg / 250 mL D5W); Recommended max rate 3 mcg/kg/min; Titrate 0.05 mcg/kg/min as often as every 5 minutes to achieve goal (see titration policy); Goal parameter MAP greater than 65 mmHg. Route: IV; Rate: calculated rate; Site: left forearm; 15:03 Follow up: IV Status: Infusion continued upon transfer bp 12:55 Drug: Heparin (OR Drip) 12 units/kg/[place] - ([place] [address] units, D5W IV 500 ml) IV at bp calculated rate Per protocol; Max initial rate 1000 units/hr {Co-Signature: nomi (Inna Ponce RN).} Route: IV; Rate: calculated rate; Site: right antecubital; 15:02 Follow up: IV Status: Infusion continued upon transfer bp 12:55 Drug: Heparin (OR-Bolus No thrombolytic) - HEParin IVP 60 units/kg IVP once; Max 5000 bp units {Co-Signature: 3 (Inna Ponce RN).} Route: IVP; Site: right antecubital; 15:02 Follow up: Response: No adverse reaction bp Medication: 11:01 VIS not applicable for this client. bp Outcome: 10:11 Outcome Resuscitation successful bp 12:23 Decision to Hospitalize by Provider. ms3 12:41 ER care complete, transfer ordered by MD. ms3 15:11 Decision to Hospitalize by Provider. ms3 16:30 Admitted to ICU accompanied by nurse, via stretcher, room 5, with oxygen, on monitor, jb4 with chart, Report called to WINIFRED Vázquez 16:30 Condition: stable 16:30 Discharge instructions given to family, Instructed on the need for admit, Demonstrated understanding of instructions, 17:03 Patient left the ED. Signatures: Dispatcher [employer] EDMS Maryse Saha Nicolasa Mar, RN RN ss Wiliam Brock, RN RN jb4 Devon Victoria, RN RN bp Callahan, Berlin, DO DO ms3 Inna Ponce, WINIFRED RN ab3 Inna Ponce RN ab3 Corrections: (The following items were deleted from the chart) 11:00 10:11 BP 98 / 54; Pulse 83bpm; Resp 16bpm; Pulse Ox 100%; Temp 98F; bp bp
[2024-12-02] MEDS ORDERED: HEPARIN/D5W 25,000 UNIT/500 ML BAG IV ONE (12:51)
[2024-12-02] MEDS ORDERED: HEPARIN 5000 UNIT/ML 1 ML VIAL ONE (12:51)
[2024-12-02] MEDS ORDERED: MIDAZOLAM HCL 2 MG/2 ML INJ IV PRN (15:12)
--- NOTE | 2024-12-02 15:25 | P.HP ---
Certification for Inpatient Patient admitted to: Inpatient With expected LOS: >2 Midnights Patient will require the following post-hospital care: None Practitioner: I am a practitioner with admitting privileges, knowledge of patient current condition, hospital course, and medical plan of care. Services: Services provided to patient in accordance with Admission requirements found in Title 42 Section 412.3 of the Code of Federal Regulations Patient History Date of Service: 12/02/24 Reason for admission: V-fib arrest with ROSC History of Present Illness: 79-year-old male with history of CKD 4, CHF, COPD with pacemaker in place presents to the emergency department after suffering an [id number] cardiac arrest. His reports that this morning while sitting up in bed he began to complain of chest pain, numbness to bilateral arms and shortly after became unresponsive. She checked for pulse and he did not have 911 was called and EMS arrived shortly after to begin chest compressions. He was defibrillated twice for V-fib and they were able to obtain ROSC prior to arrival to the hospital. He was intubated in the field. Patient was evaluated here in the emergency department started on Levophed for persistent hypotension. His labs are significant for a creatinine of 3.4 with a GFR of 18, glucose of 191 initial high sensitive troponin of 372.6 BNP of 2413, rhythm is paced. ABG shows a pH of 7.2 pCO2 49 pO2 360 and HCO3 of 19.5. No signs of STEMI on postarrest EKG. Case was discussed with cardiology will start patient on heparin drip and obtain stat echo. Patient be admitted to the ICU for further evaluation and management. Allergies acetaminophen [From Tetra] Allergy (Mild, Verified 04/13/17 01:27) Nausea/Vomiting phenylpropanolamine HCl [From Tetra] Allergy (Mild, Verified 04/13/17 01:27) Nausea/Vomiting Tetracyclines Allergy (Verified 04/13/17 01:27) Unknown Iodinated Contrast- O Allergy (Uncoded 04/12/17 23:51) Unknown Sulfa (Sulfonamid Allergy (Uncoded 04/12/17 23:51) Unknown Home Medications: Furosemide [Lasix*] 20 mg PO SEECOM 11/21/12 Warfarin Sodium [Coumadin*] 3 mg PO DAILY 5 PM 11/21/12 Lisinopril [Zestril] 2.5 mg PO DAILY 04/13/17 Metoprolol Tartrate 12.5 mg PO DAILY 07/19/21 - Past Medical/Surgical History Diabetic: No -: Hypertension -: Morbid obesity -: Type II Diabetes -: Gout -: Sleep apea with BPAP and O2 at night -: IBS -: CKD 4 -: PE -: CHF -: COPD -: birdsnest filter left groin 01/2012 -: Bilateral inguinal hernia repair -: right groin abscess -: gastric bypass -: appendectomy -: cholecystectomy Psychosocial/ Personal History: Lives at home with his - Social History Alcohol use: No CD- Drugs: No Caffeine use: Yes Review of Systems is unable to be obtained Physical Examination - Physical Exam General: Unresponsive HEENT: Atraumatic, Other (Pupils fixed and pinpoint) Neck: Supple, 2+ carotid pulse no bruit Respiratory: Clear to auscultation bilaterally, Normal air movement, Other (On ventilator/intubated) Cardiovascular: Other Gastrointestinal: Normal bowel sounds, No tenderness Musculoskeletal: No tenderness Integumentary: No rashes Neurological: Other (Unresponsive on ventilator currently without sedation, pupils fixed/pinpoint) - Studies Laboratory Data (last 24 hrs) 12/02/24 12/02/24 12/02/24 10:17 10:17 10:17 WBC 4.80 Hgb 11.0 L Hct 33.9 L Plt Count 156 PT 13.6 H INR 1.21 Sodium 143 Potassium 3.8 BUN 55 H Creatinine 3.40 H Glucose 181 H Magnesium 2.5 H Total Bilirubin 0.5 AST 96 H ALT 59 Alkaline Phosphatase 104 Assessment and Plan - Plan Assessment: V-fib arrest with ROSC NSTEMI Cardiogenic shock Acute hypoxic respiratory failure History of CHF-pacemaker in place CKD 4 Diabetes mellitus type 2 COPD Plan: V-fib arrest with ROSC NSTEMI Cardiogenic shock Acute hypoxic respiratory failure History of CHF-pacemaker in place Obtained ROSC after 2 defibrillations prehospital remains on ventilator Still Levophed, wean as tolerated PICC line ordered Continue heparin drip, trend troponins and monitor on telemetry Stat echocardiogram ordered, cardiology following Admit to ICU, continue supportive care CKD 4 Gentle IV fluids Nephrology consultation Monitor chemistry daily Diabetes mellitus type 2 Every 6 hours Accu-Chek sliding scale insulin COPD As needed nebulizer treatments DVT PPX: Heparin drip Code status:full code Discharge Plan: [facility] Plan to discharge in: 72 Hours - Advance Directives Does patient have a Living Will: No Does patient have a Durable POA for Healthcare: No - Code Status/Comfort Care Code Status Assessed: Yes (Full code) Critical Care: No Time Spent Managing Pts Care (In Minutes): 80
[2024-12-02] MEDS ORDERED: NOREPINEPHRINE 4 MG in D5W 250 ML IV SCH (16:00)
[2024-12-02] MEDS ORDERED: HEPARIN/D5W 25,000 UNIT/500 ML BAG IV SCH (16:00)
--- NOTE | 2024-12-02 16:25 | P.CNS ---
Date of Consult: 12/02/24 Reason for Consult: GAL Requesting Physician: vonda west Chief Complaint: V-fib arrest with ROSC History of Present Illness: 79-year-old male with history of CKD 4, CHF, COPD with pacemaker in place presents to the emergency department after suffering an bnq-[id number] cardiac arrest. His reports that this morning while sitting up in bed he began to complain of chest pain, numbness to bilateral arms and shortly after became unresponsive. She checked for pulse and he did not have 911 was called and EMS arrived shortly after to begin chest compressions. He was defibrillated twice for V-fib and they were able to obtain ROSC prior to arrival to the hospital. He was intubated in the field. Patient was evaluated here in the emergency department started on Levophed for persistent hypotension. His labs are significant for a creatinine of 3.4 with a GFR of 18, glucose of 191 initial high sensitive troponin of 372.6 BNP of 2413, rhythm is paced. ABG shows a pH of 7.2 pCO2 49 pO2 360 and HCO3 of 19.5. No signs of STEMI on postarrest EKG. Case was discussed with cardiology will start patient on heparin drip and obtain stat echo. Patient be admitted to the ICU for further evaluation and management. 10:36 This 79 yrs old Male presents to ER via EMS with complaints of CPR. ms3 10:36 79-year-old male with past medical history of atrial flutter, COPD, diabetes, ms3 hypertension, lymphedema, 1 kidney, PE presents to the emergency department status post cardiac arrest. EMS states they were called to the patient that was unresponsive. On their arrival CPR was being performed by [facility]. Their initial presenting rhythm was ventricular fibrillation and patient was defibrillated. CPR was continued. At the rhythm check patient noted to be in V-fib and patient was shocked. Patient did receive 1 epinephrine. Patient was intubated with a 7.5 ET tube. A right femoral IO was placed and amiodarone drip started. EMS notes patient's blood glucose level 185 Allergies acetaminophen [From Tetra] Allergy (Mild, Verified 04/13/17 01:27) Nausea/Vomiting phenylpropanolamine HCl [From Tetra] Allergy (Mild, Verified 04/13/17 01:27) Nausea/Vomiting Tetracyclines Allergy (Verified 04/13/17 01:27) Unknown Iodinated Contrast- O Allergy (Uncoded 04/12/17 23:51) Unknown Sulfa (Sulfonamid Allergy (Uncoded 04/12/17 23:51) Unknown Home medications list reviewed: Yes Home Medications: Acetaminophen [Tylenol] 650 mg PO Q6H 12/02/24 Apixaban [Eliquis] 5 mg PO BID 12/02/24 Furosemide [Lasix] 80 mg PO DAILY 12/02/24 Ibuprofen 600 mg PO Q6H 12/02/24 Pantoprazole Sodium [Protonix] 40 mg PO DAILY 12/02/24 sulfaSALAzine [Sulfasalazine] 500 mg PO QID 12/02/24 - Past Medical/Surgical History Diabetic: No -: Hypertension -: Morbid obesity -: Type II Diabetes -: Gout -: Sleep apea with BPAP and O2 at night -: IBS -: CKD 4 -: PE -: CHF -: COPD -: birdsnest filter left groin 01/2012 -: Bilateral inguinal hernia repair -: right groin abscess -: gastric bypass -: appendectomy -: cholecystectomy Psychosocial/ Personal History: Lives at home with his - Social History Smoking Status: Former smoker Alcohol use: No CD- Drugs: No Caffeine use: Yes Review of Systems is unable to be obtained Physical Examination Temp Pulse Resp BP Pulse Ox 65 100 12/02/24 15:15 12/02/24 15:15 General: Unresponsive HEENT: Atraumatic Neck: Supple Respiratory: Clear to auscultation bilaterally Cardiovascular: No edema, Regular rate/rhythm Gastrointestinal: Soft and benign, Non-distended Musculoskeletal: No clubbing, No contractures Integumentary: No rashes, No cyanosis Laboratory Data (last 24 hrs) 12/02/24 12/02/24 12/02/24 10:17 10:17 10:17 WBC 4.80 Hgb 11.0 L Hct 33.9 L Plt Count 156 PT 13.6 H INR 1.21 Sodium 143 Potassium 3.8 BUN 55 H Creatinine 3.40 H Glucose 181 H Magnesium 2.5 H Total Bilirubin 0.5 AST 96 H ALT 59 Alkaline Phosphatase 104 Imagings Data: EXAM: CTA of the chest, abdomen and pelvis HISTORY: Cardiac arrest COMPARISON: None TECHNIQUE: Multiple contiguous axial images were obtained a CTA of the chest and abdomen with contrast per aortic dissection protocol. Sagittal and coronal 3-D MIP reformats were performed. 100 cc Isovue-370 administered intravenously.Automated exposure control, adjustment of the mA and kV according to the patient size, and iterative reconstruction. Unless otherwise specified, incidental findings do not require dedicated imaging follow-up. FINDINGS: Endotracheal tube 3 cm above the andrey. Nasogastric tube 1.5 cm into the stomach An aortic dissection not seen. No aortic aneurysm Celiac, SMA and ABBI do not demonstrate a significant abnormality. Right lower lobe atelectasis.. Occlusion right lower lobe bronchus. Small right pleural effusion Multiple gallstones. 2 cm hypodense lesion pancreatic head. Liver, spleen unremarkable. 2.1 cm simple cyst right kidney. Tiny nonobstructing left renal calculus. Filter within the IVC. No evidence of diverticulitis. The entire right lateral abdomen is not included IMPRESSION: No evidence of an aortic dissection Nasogastric tube 1.5 cm into the stomach. It should be advanced. Occlusion right lower lobe bronchus right lower lobe atelectasis. Cholelithiasis without evidence cholecystitis 2 cm hypodense lesion pancreatic head. Pancreatic MRI recommended Exam:Abdomen 1 View (KUB) Clinical history: Nasogastric tube placement FINDINGS: Nasogastric tube has been inserted with its tip 4 cm into the stomach Procedure: Chest Single View HISTORY: Endotracheal tube placement FINDINGS: Endotracheal tube has been inserted with its tip about 3 cm above the andrey Conclusions/Impression: CKD IV -No NSAIDs -At risk for ATN -Gentle IVF V-fib Arrest with ROSC after defibrillation X2 Cardiogenic Shock -Continue Levophed -Stat echo pending -Cardiology following -Heparin gtt for NSTEMI Acute Respiratory Failure with hypercapnia Intubated -Continue ventilatory support Toxic Metabolic Encephalopathy -Continue supportive care -Sedated Anemia in chronic illness Macrocytosis -Monitor [facility]&H Hospitalist and ER notes reviewed Thank you kindly for the consultation 40min patient care
[2024-12-02] MEDS ORDERED: SODIUM CHLORIDE 0.9% 10ML INJ IV PRN (17:49)
[2024-12-02 18:11] LABS: Blood Gas Oxyhemoglobin 97.6 % (94.0-97.0); Blood O2 Saturation 99.5 % (92.0-98.5)
[2024-12-02 18:12] LABS: Arterial Blood Carboxyhemoglob 0.7 % (0.0-1.5); Blood Gas Inspired Oxygen 50.0 %
[2024-12-02] MEDS: AMIODARONE HCL 900 MG in Dextrose 5%-Water 482 ML IV SCH (18:29)
[2024-12-02] MEDS: D5 0.45 NS 1,000 ML IV SCH (18:29)
[2024-12-02] MEDS: PANTOPRAZOLE 40 MG INJ IVP SCH (18:29)
[2024-12-02] MEDS: AMIODARONE HCL 150 MG in D5W 100 ML IV STA (18:29)
[2024-12-02] MEDS: FENTANYL CITR 100 MCG/2 ML IV PRN (18:36)
[2024-12-02] MEDS: D5 0.9 NS 1,000 ML IV SCH (20:00)
[2024-12-02] MEDS: Mupirocin NASAL 2 APPL/1 GM TUBE NAS SCH (20:03)
[2024-12-02] MEDS: FAMOTIDINE 20 MG/2 ML VIAL IV SCH (20:03)
--- NOTE | 2024-12-03 05:35 | RAD REPORT ---
EXAMINATION: XR CHEST 1 VIEW INDICATION: 79 years old Male 1945 right PICC Line insertion COMPARISON(S): None. TECHNIQUE: 1 view X-ray of the chest was performed. FINDINGS: Support Devices: Multilead pacemaker. Right-sided PICC line tip distal SVC at the cavoatrial junction . Heart: Enlarged. Mediastinum: Ectatic aorta. Lungs: Low lung volumes. Consolidative opacity right lower lung laterally. Osseous Structures: Visualized skeleton is normal. IMPRESSION: 1. Consolidative opacity right lower lung concerning for pneumonia. Cardiomegaly. PICC line tip cavoa trial junction. Electronically signed by: Ricardo Badillo MD 12/03/2024 04:58 AM CDT RP Due to temporary technical issues with the [email or web address] reporting system, reports are being eula d by the in-house radiologist without review as a courtesy to ensure prompt reporting the interpreting radiologist is fully responsible for the content of the report. Transcribed Date/Time: 12/03/2024 5:35 AM
[2024-12-03] MEDS: LORazepam 2 MG/ML VIAL ONE (05:49)
[2024-12-03] MEDS: LORazepam 2 MG/ML VIAL IV ONE (05:54)
[2024-12-03 06:04] LABS: Arterial Blood Carboxyhemoglob 1.9 % (0.0-1.5); Blood Gas Inspired Oxygen 40.0 %; Blood Gas Oxyhemoglobin 68.0 % (94.0-97.0)
[2024-12-03 06:05] LABS: Blood O2 Saturation 70.0 % (92.0-98.5)
[2024-12-03 06:36] LABS: Blood Gas Oxyhemoglobin 97.2 % (94.0-97.0); Blood O2 Saturation 97.3 % (92.0-98.5)
[2024-12-03 06:37] LABS: Arterial Blood Carboxyhemoglob 1.1 % (0.0-1.5); Blood Gas Inspired Oxygen 40.0 %
[2024-12-03 06:48] LABS: Absolute Lymphocytes (CBC) 0.7 K/uL (0.7-4.9); Hematocrit 32.1 % (39.6-49.0); Hemoglobin 10.2 g/dL (13.6-17.9); MCH 32.6 pg (27.0-35.0); MCHC 31.9 g/dL (32.0-36.0); MCV 102.3 fL (80-100); MPV 9.1 fL (7.6-11.3); Nucleated RBC Absolute Count 0.0 (0-0); Nucleated Red Blood Cells % 0.0 % (0-0); RBC Red Blood Cell Count 3.14 M/uL (4.33-5.43); White Blood Count 7.10 thou/uL (4.3-10.9)
[2024-12-03 07:11] LABS: ALT/SGPT 55.0 U/L (16-61); AST/SGOT 133.0 U/L (15-37); Albumin 2.9 g/dL (3.4-5.0); Albumin/Globulin Ratio 0.9 (1.1-1.8); Alkaline Phosphatase 92.0 U/L (45-117); Anion Gap 11.9 mEq/L (5.0-15.0); BUN Blood Urea Nitrogen 53.0 mg/dL (7-18); Globulin 3.1 g/dL (2.3-3.5); Glucose Level 108.0 mg/dL (74-106); Magnesium 2.3 mg/dL (1.6-2.4); Potassium 3.9 mEq/L (3.5-5.1); Thyroid Stimulating Hormone 2.26 uIU/mL (0.358-3.740)
[2024-12-03] MEDS: NOREPINEPHRINE BITARTRATE/D5W 4 MG/250 ML BAG IV SCH (07:26)
--- NOTE | 2024-12-03 08:13 | P.CNS ---
Date of Consult: 12/03/24 Chief Complaint: V-fib arrest with ROSC History of Present Illness: Patient with PMH of AF, PM placement, CKD, HTN, presented with sudden cardiac arrest, per patient started having chest pain before passing out, EMS called and arrived in 5 minutes, he was found to be in VF/VT, ROSC achieved after CPR, not sure how long, patient is intubated, requiring vasopressor support. Allergies acetaminophen [From Tetra] Allergy (Mild, Verified 04/13/17 01:27) Nausea/Vomiting phenylpropanolamine HCl [From Tetra] Allergy (Mild, Verified 04/13/17 01:27) Nausea/Vomiting Tetracyclines Allergy (Verified 04/13/17 01:27) Unknown Iodinated Contrast- O Allergy (Uncoded 04/12/17 23:51) Unknown Sulfa (Sulfonamid Allergy (Uncoded 04/12/17 23:51) Unknown Home medications list reviewed: Yes Home Medications: Acetaminophen [Tylenol] 650 mg PO Q6H 12/02/24 Apixaban [Eliquis] 5 mg PO BID 12/02/24 Furosemide [Lasix] 80 mg PO DAILY 12/02/24 Ibuprofen 600 mg PO Q6H 12/02/24 Pantoprazole Sodium [Protonix] 40 mg PO DAILY 12/02/24 sulfaSALAzine [Sulfasalazine] 500 mg PO QID 12/02/24 - Past Medical/Surgical History Diabetic: No -: Hypertension -: Morbid obesity -: Type II Diabetes -: Gout -: Sleep apea with BPAP and O2 at night -: IBS -: CKD 4 -: PE -: CHF -: COPD -: birdsnest filter left groin 01/2012 -: Bilateral inguinal hernia repair -: right groin abscess -: gastric bypass -: appendectomy -: cholecystectomy Psychosocial/ Personal History: Lives at home with his - Social History Smoking Status: Former smoker Alcohol use: No CD- Drugs: No Caffeine use: Yes Place of Residence: Home Review of Systems is unable to be obtained (intubated, sedated.) Physical Examination Temp Pulse Resp BP Pulse Ox 98 F 60 16 87/50 L 98 12/03/24 04:00 12/03/24 07:00 12/03/24 07:00 12/03/24 07:00 12/03/24 07:00 General: Other (intubated.) HEENT: Atraumatic, PERRLA, Mucous membr. moist/pink, EOMI, Sclerae nonicteric Neck: Supple, 2+ carotid pulse no bruit, No LAD, Without JVD or thyroid abnormality Respiratory: Clear to auscultation bilaterally, Normal air movement Cardiovascular: Regular rate/rhythm, Normal S1 S2 Gastrointestinal: Normal bowel sounds, No tenderness Musculoskeletal: No tenderness Integumentary: No rashes Neurological: Normal gait, Normal speech, Normal tone, Normal affect Lymphatics: No axilla or inguinal lymphadenopathy Laboratory Data (last 24 hrs) 12/02/24 12/02/24 12/02/24 10:17 10:17 10:17 WBC 4.80 Hgb 11.0 L Hct 33.9 L Plt Count 156 PT 13.6 H INR 1.21 Sodium 143 Potassium 3.8 BUN 55 H Creatinine 3.40 H Glucose 181 H Magnesium 2.5 H Total Bilirubin 0.5 AST 96 H ALT 59 Alkaline Phosphatase 104 - Problems (1) Cardiac arrest Current Visit: Yes Status: Acute Plan: Patient is s/p coronary angiogram, PCI LAD and OM1 done, LPDA is occluded, most likely culprit, wire will not cross continue Integrillin drip for 6 hours meanwhile, give ASA 325 mg po x1 then continue 81 mg daily also give Brilinta 180 mg po x1 then continue 90 mg po BID (2) Ventricular tachyarrhythmia Current Visit: Yes Status: Acute Plan: continue amdioarone drip switch to amiodarone 200 mg po BID in am
[2024-12-03] MEDS: MIDAZOLAM HCL 2 MG/2 ML INJ ONE (08:16)
[2024-12-03] MEDS: FENTANYL CITR 100 MCG/2 ML ONE (08:16)
[2024-12-03] MEDS: NA CHLORIDE 0.9% 500 ML ONE (08:17)
[2024-12-03] MEDS ORDERED: LIDOCAINE 1% 20 ML MDV ONE (08:20)
[2024-12-03] MEDS ORDERED: HEPARIN 10,000 UNIT/10 ML VIAL IV ONE (08:20)
[2024-12-03] MEDS ORDERED: HEPA 1000U/500MLS 2,000 UNIT/1,000 ML BAG IV ONE (08:20)
[2024-12-03] MEDS ORDERED: HEPARIN 5000 UNIT/ML 1 ML VIAL ONE (08:21)
[2024-12-03] MEDS ORDERED: DIPHENHYDRAMINE 50 MG/ML VIAL ONE (09:05)
[2024-12-03] MEDS ORDERED: METHYLPREDNISOLONE 125 MG INJ ONE (09:05)
[2024-12-03] MEDS ORDERED: Phenylephrine HCl 10 MG/ML 1 ML VIAL ONE (09:28)
[2024-12-03] MEDS: EPTIFIBATIDE 20 MG/10 ML VIAL IV ONE (10:15)
[2024-12-03] MEDS: EPTIFIBATIDE 75 MG/100 ML VIAL IV ONE (10:15)
[2024-12-03] MEDS: D5 0.45 NS 1,000 ML IV SCH (11:09)
--- NOTE | 2024-12-03 11:54 | RAD REPORT ---
EXAMINATION: Abdomen 1 View (KUB) VIEWS: Single limited view CLINICAL INDICATION: Male, 79 years old. NG tube placement COMPARISON: No prior exams IMPRESSION: Single limited abdominal radiograph. The tip of the NG tube is in the proximal stomach with side-port at the distal esophagus. This should be advanced by 8 cm. The findings were communicated to Dr. Rucker on 12/03/2024 11:51 AM.
[2024-12-03] MEDS: ASPIRIN 325 MG TAB PO ONE (12:15)
[2024-12-03] MEDS: TICAGRELOR 90 MG TABLET PO ONE (12:16)
--- NOTE | 2024-12-03 12:32 | P.CNS ---
Date of Consult: 12/03/24 Reason for Consult: Status postcardiac arrest Chief Complaint: V-fib arrest with ROSC History of Present Illness: Patient is 79 years of age admitted with chest pain developed cardiac arrest was admitted from the emergency room intubated I saw him in the morning patient was on a ventilator very comfortable family members at the bedside no prior history of coronary artery disease he had a pacemaker states that he is mentally very alert to about his difficulty walking due to right sided knee pain has not to date complained of any chest pain he was scheduled for a cardiac cath in the afternoon Allergies acetaminophen [From Tetra] Allergy (Mild, Verified 04/13/17 01:27) Nausea/Vomiting phenylpropanolamine HCl [From Tetra] Allergy (Mild, Verified 04/13/17 01:27) Nausea/Vomiting Tetracyclines Allergy (Verified 04/13/17 01:27) Unknown Iodinated Contrast- O Allergy (Uncoded 04/12/17 23:51) Unknown Sulfa (Sulfonamid Allergy (Uncoded 04/12/17 23:51) Unknown Home Medications: Acetaminophen [Tylenol] 650 mg PO Q6H 12/02/24 Apixaban [Eliquis] 5 mg PO BID 12/02/24 Furosemide [Lasix] 80 mg PO DAILY 12/02/24 Ibuprofen 600 mg PO Q6H 12/02/24 Pantoprazole Sodium [Protonix] 40 mg PO DAILY 12/02/24 sulfaSALAzine [Sulfasalazine] 500 mg PO QID 12/02/24 - Past Medical/Surgical History Diabetic: No -: Hypertension -: Morbid obesity -: Type II Diabetes -: Gout -: Sleep apea with BPAP and O2 at night -: IBS -: CKD 4 -: PE -: CHF -: COPD -: birdsnest filter left groin 01/2012 -: Bilateral inguinal hernia repair -: right groin abscess -: gastric bypass -: appendectomy -: cholecystectomy Psychosocial/ Personal History: Lives at home with his - Social History Smoking Status: Former smoker Alcohol use: No CD- Drugs: No Caffeine use: Yes Place of Residence: Home Review of Systems is unable to be obtained Physical Examination Temp Pulse Resp BP Pulse Ox 97.6 F 62 16 142/78 H 100 12/03/24 11:00 12/03/24 11:00 12/03/24 11:00 12/03/24 11:00 12/03/24 11:00 General: Unresponsive Respiratory: Clear to auscultation bilaterally Cardiovascular: Normal pulses ( lymphedema), Normal S1 S2, Edema (Patient has) - Problems (1) Cardiac arrest Current Visit: Yes Status: Acute Plan: Patient is 79 years of age admitted with chest pain non-STEMI respiratory failure his chest x-ray is clear patient has chronic renal failure due to only 1 functioning kidney no prior history of coronary artery disease labs reviewed vital signs are stable FiO2 40% no clinical evidence of sepsis can DC cefepime tomorrow no change in present treatment hopefully will start weaning him off the ventilator tomorrow cardiac cath shows complete occlusion of LPDA unable to insert any stents to continue with medical treatment
[2024-12-03] MEDS: CEFEPIME 2 GM in NA CHLORIDE 0.9% 100 ML IV SCH (12:53)
[2024-12-03] MEDS: levETIRAcetam 1,000 MG in NA CHLORIDE 0.9% 100 ML IV ONE (12:53)
--- NOTE | 2024-12-03 15:02 | P.PN ---
Subjective Date of Service: 12/03/24 Chief Complaint: V-fib arrest with ROSC Nursing staff report patient had 2 episodes of seizures, 1 episode last night and another episode today during cardiac catheterization today Vasopressors weaned off. Nursing staff report patient became more responsive and has been on propofol sedation since last night. No recorded fever, patient is tolerating the vent. Physical Examination - Vital Signs Temperature: 97.4 F Blood Pressure: 139/81 Pulse: 61 Respirations: 16 Pulse Ox (%): 100 Assessment And Plan - Plan Physical examination General: Unresponsive, intubated. HEENT: Atraumatic, Pupils fixed and pinpoint, ET tube and NG tube in place. Neck: Supple, 2+ carotid pulse no bruit Respiratory: Bilateral upper airway transmitted sounds, Normal air movement, no crackles. Cardiovascular: Heart sounds 1 and 2 normal, regular rhythm, no murmur. bilateral lower extremity pitting edema, right greater than left Gastrointestinal: Normal bowel sounds, No tenderness, no hepatosplenomegaly Musculoskeletal: No tenderness, Integumentary: Hemosiderin staining bilateral legs. Neurological: Unresponsive on ventilator, patient moving all extremities spontaneously. Assessment: V-fib arrest with ROSC NSTEMI Cardiogenic shock Acute hypoxic respiratory failure History of CHF-pacemaker in place CKD 4 Diabetes mellitus type 2 COPD Plan: V-fib arrest with ROSC NSTEMI Cardiogenic shock Coronary artery disease status post stent Acute hypoxic respiratory failure History of CHF-pacemaker in place Obtained ROSC after 2 defibrillations prehospital Continue mechanical ventilator Cardiology Dr. Bryan access follow Status post cardiac catheterization today, LAD and OM stented Patient placed on Integrilin drip, Plavix and Brilinta via NG tube. Levophed drip weaned off, blood pressure improved. PICC line in place Echocardiogram result is pending. Anoxic encephalopathy Seizures 2 episodes of seizures reported. Neurology consulted, case discussed with Dr. Nath who recommend MRI of the brain, EEG. Start IV Keppra(1 g IV loading dose followed by 500 mg twice a day) given 2 episodes of seizures. Neurochecks. Prognostication pending MRI of the brain and EEG results. Empiric IV cefepime. CKD 4 Gentle IV fluids Nephrology Dr. Davies consulted to assist with management Monitor chemistry daily Diabetes mellitus type 2 Every 6 hours Accu-Chek sliding scale insulin COPD As needed nebulizer treatments DVT PPX: Heparin SQ Code status:full code
[2024-12-03] MEDS: HEPARIN 5000 UNIT/ML 1 ML VIAL SQ SCH (16:36)
--- NOTE | 2024-12-03 17:01 | CON ---
Date of Consultation: 12/03/2024 Additional Consulting Physician: Dr. Rucker. Reason For Consultation: Elevated BUN and creatinine, fluid management. History Of Present Illness: This is an 79-year-old gentleman. All the information has been obtained from the record as the patient being intubated. The patient well known to me from the office, last seen back in November 12, 2024. 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 The patient chronic kidney disease, as I mentioned secondary to solitary kidney, baseline creatinine 3, GFR of 17 as of November 2024. Apparently, the patient came to the hospital complaining from atrial fibrillation with RVR. The patient had cardiac arrest. CPR was initiated. The patient was cardioverted, received Levophed, then weaned from Levophed. The patient had cardiac cath today and 2 stents were placed. Levophed was resumed. The patient had good urine output of 950 in the last 24 hours. Past Medical History: Includes: 1. 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 2. Gout. 3. Obstructive sleep apnea. 4. PE. 5. Congestive heart failure. Past Surgical History: Include appendectomy, cholecystectomy, groin abscess, inguinal hernia repair, and cardiac cath. Social History: Denied smoking. Denied drinking. Denied drugs abuse. Review of Systems: None obtainable. Physical Examination: Vital Signs: When I saw the patient, the patient lying in bed, intubated on the vent. Blood pressure of 142/78, pulse of 62, afebrile. Chest: Faint rales bilateral. Heart: S1, S2 systolic murmur. Abdomen: Soft, nontender. Extremities: +1 edema. Neurologic: The patient on vent, sedated. Laboratory Data: Chest x-ray; cardiomegaly with congestion. WBC 7.1, hemoglobin 10.2, and platelet 152. Sodium 144, potassium 3.9, bicarb 23, BUN 53, creatinine 3.2, GFR of 19, calcium of 8, phosphorus 4.6, and BNP 37,000. ABG, pH of 7.3, CO2 of 40, and O2 97. Current Medications: The patient on include: 1. Levophed. 2. Aspirin. 3. Pantoprazole 4. Amiodarone. 5. Lorazepam. 6. IV fluid at 100 per hour. Assessment And Plan: 1. Acute kidney injury on advanced chronic kidney disease secondary to cardiorenal, secondary to atrial fibrillation, cardiac arrest, poor perfusion ATN, nonoliguric, slightly on the over volume side. Anyhow, the patient had cardiac cath with contrast and being on vent, I agree with holding the diuresis. We will continue on the hydration for the next 12 hours and we will follow up the patient closely. If kidney function decline, the patient may need to be initiated on renal replacement therapy. We will follow up the patient closely. 2. Hypertension, controlled, optimal currently Levophed dependent. Hold diuresis. Hold SMILEY inhibitor or ARB for the time being. 3. Atrial fibrillation with RVR with cardiac arrest. Asked by Cardiology, continue on anticoagulation. 4. Congestive heart failure with exacerbation. Currently, the patient on vent. The patient had cardiac cath with contrast with advanced kidney disease. I am going to hold the diuresis for this 24 hour. We will plan to resume it tomorrow and we will follow up the patient. 5. Diabetes, as by primary. 6. Acidosis, non-anion gap metabolic acidosis secondary to poor perfusion. I do not see the need for any bicarb. 7. Hypernatremia. No need for treatment. The patient currently on IV fluid. We will follow up. Thank you for allowing us to participate in the care of your patient. Time spent evaluating the patient, discussing the case with the engineer steam including ICU staff and hospitalist more than 75 minutes. COREY Voice ID: [id number] Report ID: [id number] NELA
--- NOTE | 2024-12-03 19:42 | P.PN ---
Date of Service: 12/03/24 Vital Signs Temp Pulse Resp BP Pulse Ox 97.4 F 60 18 123/76 100 12/03/24 15:04 12/03/24 18:00 12/03/24 18:00 12/03/24 18:00 12/03/24 18:00 Medications Aspirin (Aspirin 81 Mg Chewable Tablet) 81 mg PO DAILY INGRID Fentanyl Citrate (Fentanyl Citr 100 Mcg/2 Ml) 25 mcg IV Q4HP PRN PRN Reason: Pain scale 8-10 (Severe) Last Admin: 12/02/24 18:36 Dose: 25 mcg Heparin Sodium (Porcine) (Heparin 1,000 Unit/Ml Vial) 0 unit IV PRN PRN PRN Reason: Heparin Re-Bolus Per Protocol Last Admin: 12/02/24 23:05 Dose: 3,000 unit Heparin Sodium (Porcine) (Heparin 5000 Unit/Ml 1 Ml Vial) 5,000 unit SQ Q8HR INGRID Last Admin: 12/03/24 16:36 Dose: 5,000 unit Amiodarone HCl 900 mg/ (Dextrose) 500 mls @ 0 mls/hr IV Q24H INGRID; Protocol Last Admin: 12/03/24 16:36 Dose: 500 mls Propofol (Diprivan) 1,000 mg in 100 mls @ 3.558 mls/hr IV TITR INGRID; Protocol Last Admin: 12/03/24 16:36 Dose: 15 mcg/kg/min, 10.7 mls/hr Norepinephrine/Dextrose (Levophed 4 Mg/250 Ml-D5w) 4 mg in 250 mls @ 45.926 mls/hr IV TITR INGRID; Protocol Last Titration: 12/03/24 08:00 Dose: 0 mcg/kg/min, 0 mls/hr Dextrose/Sodium Chloride (Dextrose 5% 0.45% Saline) 1,000 mls @ 100 mls/hr IV .Q10H INGRID Last Admin: 12/03/24 11:09 Dose: 1,000 mls Cefepime HCl 2 gm/ Sodium (Chloride) 100 mls @ 200 mls/hr IV Q12HR INGRID; Protocol Last Admin: 12/03/24 12:53 Dose: 100 mls Levetiracetam 500 mg/ Sodium (Chloride) 105 mls @ 420 mls/hr IV BID INGRID Midazolam HCl (Midazolam Hcl 2 Mg/2 Ml Inj) 2 mg IV Q2HP PRN PRN Reason: Sedation-Propofol not effect Mupirocin (Mupirocin Nasal 2 Appl/1 Gm Tube) 1 appl [place] BID [facility] Stop: 12/07/24 09:01 Last Admin: 12/03/24 11:09 Dose: 1 appl Pantoprazole Sodium (Pantoprazole 40 Mg Inj) 40 mg IVP DAILY INGRID; Protocol Last Admin: 12/03/24 11:09 Dose: 40 mg Sodium Chloride (Sodium Chloride 0.9% 10ml Inj) 10 ml IV UD PRN PRN Reason: Diluant Ticagrelor (Ticagrelor 90 Mg Tablet) 90 mg PO BID [facility] Assessment/ Plan: Nephrology Limited IH/ ROS due to mental status/ critical illness Cardiac cath this morning Seizure episode overnight and during the cardiac cath Vitals, medications, blood work and imaging reviewed in the chart General: Sedated HEENT: Atraumatic Neck: Supple Respiratory: Ventilated/ Intubated Cardiovascular: No edema, Regular rate/rhythm Gastrointestinal: Soft and benign, Non-distended Musculoskeletal: No clubbing, No contractures Integumentary: No rashes, No cyanosis Laboratory Data (last 24 hrs) 12/02/24 12/02/24 12/02/24 10:17 10:17 10:17 WBC 4.80 Hgb 11.0 L Hct 33.9 L Plt Count 156 PT 13.6 H INR 1.21 Sodium 143 Potassium 3.8 BUN 55 H Creatinine 3.40 H Glucose 181 H Magnesium 2.5 H Total Bilirubin 0.5 AST 96 H ALT 59 Alkaline Phosphatase 104 Imagings Data: EXAM: CTA of the chest, abdomen and pelvis HISTORY: Cardiac arrest COMPARISON: None TECHNIQUE: Multiple contiguous axial images were obtained a CTA of the chest and abdomen with contrast per aortic dissection protocol. Sagittal and coronal 3-D MIP reformats were performed. 100 cc Isovue-370 administered intravenously.Automated exposure control, adjustment of the mA and kV according to the patient size, and iterative reconstruction. Unless otherwise specified, incidental findings do not require dedicated imaging follow-up. FINDINGS: Endotracheal tube 3 cm above the andrey. Nasogastric tube 1.5 cm into the stomach An aortic dissection not seen. No aortic aneurysm Celiac, SMA and ABBI do not demonstrate a significant abnormality. Right lower lobe atelectasis.. Occlusion right lower lobe bronchus. Small right pleural effusion Multiple gallstones. 2 cm hypodense lesion pancreatic head. Liver, spleen unremarkable. 2.1 cm simple cyst right kidney. Tiny nonobstructing left renal calculus. Filter within the IVC. No evidence of diverticulitis. The entire right lateral abdomen is not included IMPRESSION: No evidence of an aortic dissection Nasogastric tube 1.5 cm into the stomach. It should be advanced. Occlusion right lower lobe bronchus right lower lobe atelectasis. Cholelithiasis without evidence cholecystitis 2 cm hypodense lesion pancreatic head. Pancreatic MRI recommended Exam:Abdomen 1 View (KUB) Clinical history: Nasogastric tube placement FINDINGS: Nasogastric tube has been inserted with its tip 4 cm into the stomach Procedure: Chest Single View HISTORY: Endotracheal tube placement FINDINGS: Endotracheal tube has been inserted with its tip about 3 cm above the andrey EXAMINATION: XR CHEST 1 VIEW INDICATION: 79 years old Male 1945 right PICC Line insertion COMPARISON(S): None. TECHNIQUE: 1 view X-ray of the chest was performed. FINDINGS: Support Devices: Multilead pacemaker. Right-sided PICC line tip distal SVC at the cavoatrial junction. Heart: Enlarged. Mediastinum: Ectatic aorta. Lungs: Low lung volumes. Consolidative opacity right lower lung laterally. Osseous Structures: Visualized skeleton is normal. IMPRESSION: 1. Consolidative opacity right lower lung concerning for pneumonia. Cardiomegaly. PICC line tip cavoatrial junction. Conclusions/Impression: CKD IV -No NSAIDs -At risk for ATN -Change IVF to D5W1/2NS V-fib Arrest with ROSC after defibrillation X2 Cardiogenic Shock -Levophed prn -Stat echo pending -Cardiology following Acute Respiratory Failure with hypercapnia Intubated Suspected RLL PNA concerning for aspiration -Continue ventilatory support -Continue Abx Anoxic/ Metabolic Encephalopathy -Continue supportive care -Sedated -EEG pending Anemia in chronic illness Macrocytosis -Monitor H&H Hospitalist and Cardiology notes reviewed 35min patient care Dr. Davies reports that this patient is seen by him in his clinic. I will defer further nephrology care to his team.
[2024-12-03] MEDS: TICAGRELOR 90 MG TABLET PO SCH (20:15)
[2024-12-03] MEDS: levETIRAcetam 500 MG in NA CHLORIDE 0.9% 100 ML IV SCH (20:15)
[2024-12-03] MEDS ORDERED: levETIRAcetam 500 MG in NA CHLORIDE 0.9% 100 ML IV SCH (21:00)
--- NOTE | 2024-12-04 01:16 | OP ---
Date of Procedure: 12/03/2024 Surgeon: Martín Bryan Procedures Performed: 1. Selective coronary angiogram. 2. Percutaneous coronary intervention of the left anterior descending with Synergy 3.0 x 48 mm drug-e luting stent. 3. Percutaneous coronary intervention of the OM1 with Synergy 3.0 x 20 mm drug-eluting stent. Indication For Procedure: The patient with past medical history of AFib, pacemaker placement, hypert ension, presented after a cardiac arrest. EMS found patient to be in VFib. ROSC achieved, not sure how long it took them for that, so patient was taken to the cath lab tech. Complications: None. Estimated Blood Loss: Less than 50 cc. Access: Right common femoral artery closed by an Angio-Seal. Sedation Time: 40 minutes. The patient is already intubated, on the vent. Description Of Procedure: After risks, benefits, and alternatives were explained to the patient, venkatesh hdez, they agreed to proceed with procedure and signed informed consent. The patient was brought back to the cath lab tech, prepped and draped in sterile fashion. Time-out was performed. Sedation was errol nued with propofol as the patient is intubated. Right common femoral artery access was obtained usin g ultrasound-guided micropuncture technique. JL4 catheter was advanced over a J-wire to the aortic r oot. Selective angiogram of the left system was done using that catheter, that was later exchanged w ith a JR4 catheter for selective angiogram of the right coronary system. After that, catheter was ex changed with an XB LAD 3.5 mm guide. Heparin was administered and ACT was therapeutic, so a Runthrou gh wire was tried to cross the left PDA, but it will not cross due to significant thrombus burden. A lso, we tried to cross with a Fielder XT wire, but wire will not pass across the lesion. So, we redi rected our attention to the LAD as it got severe disease, so Runthrough wire was passed across the LA D. We pre-dilated the lesion with an NC 2.5 mm balloon and 3.0 mm balloon. Next, Synergy 3.0 x 48 m m drug-eluting stent was placed across the lesions with a GuideLiner help. That stent was later post dilated with an NC 3.25 mm balloon. Final angiogram shows GWENDOLYN-3 flow in that artery, so the Runthro ugh wire was pulled back into the OM1 as it got severe disease. Pre-dilated the lesion with an NC 2. 5 mm balloon. Next, Synergy 3.0 x 20 mm drug-eluting stent was placed across the lesion, postdilated with a stent balloon. Final angiogram shows GWENDOLYN-3 flow in that artery too. At the end of procedur e, catheter was removed over a J-wire, sheath was removed, and Angio-Seal was applied. Hemostasis wa s achieved and patient was moved back to recovery in stable condition. Findings: 1. Left main: Very short, normal. 2. LAD: Heavy calcified artery with proximal mild luminal irregularities. Then, mid long diffuse 80 % to 90% disease, status post PCI as above. Then, distal mild luminal irregularities. 3. Diagonal 1 and diagonal 2 with mild luminal irregularities. 4. Left circ dominant systems: There are proximal to mid mild luminal irregularities. Then, continu e as left PDA, but it got 100% occlusion at the left PDA. We attempted to cross wires, but not able to cross the lesion. 5. OM1: Large with proximal 80% to 90% disease, hazy lesion, status post PCI as above. 6. OM2: Large with mild luminal irregularities, tortuous artery. 7. RCA: Nondominant, small artery, but we noticed that it gives collaterals into the left PDA. Assessment And Plan: 1. 100% occluded left PDA, unable to cross the lesion. 2. Significant mid LAD disease, status post PCI with Synergy 3.0 x 48 mm drug-eluting stent. 3. Significant OM1 disease, status post PCI with Synergy 3.0 x 20 mm drug-eluting stent. Plan: 1. The patient was given heparin during the procedure. ACT was therapeutic even at the end of proced ure. 2. Integrilin bolus and drip was given, drip to be continued for 6 hours until OT tube is cleared for medication administration. If it is clear, then Brilinta 180 x1 needs to be given with 325 of aspir in and then Brilinta 90 mg p.o. b.i.d. need to be continued with aspirin 81 mg daily. Continue supportive care for the patient. ABDIRAHMAN/CHANI Voice ID: [id number] Report ID: [id number]
--- NOTE | 2024-12-04 01:26 | CON ---
Date of Consultation: 12/03/2024 Reason For Consultation: Unresponsive patient following cardiac arrest. History Of Present Illness: Mr. Ball is an 79-year-old patient with stage IV disease, CHF, COPD, has cardiac pacemaker, who was brought to the emergency room after his noted he suffered a sudd en episode of unresponsiveness and was found to be in cardiac arrest by [facility]. He was resuscitated, reported less than 5 minutes and had the pulse restored. Unclear of the sequenc e of what he received, but he was defibrillated twice for V-Fib and had return of spontaneous circula tion prior to arrival at the hospital. He was intubated in the field. His first pH was 7.2, and sub sequently improved and his ventilation. He was put on Levophed for severe hypotension, which did imp rove. Had elevated creatinine 3.4, GFR of 18, glucose 191, and very elevated troponins of 372.6. He was taken for cardiac cath which was done with results pending. His enzymes likely reflected myocar dial infarction. His troponin 1 on 12/02 of 372.6, improved to 14,505 on the around to 2220 radha rs and on 12/03/2024 at 05:58 37,779 which have reflected his resuscitation efforts and myocardial in farction. Since then, the patient remains in ICU. Family knows who were at the bedside bed he has n o purposeful spontaneous movements, although there will be some very subtle lower jaw movements. No spontaneous eye opening. Moving his upper legs and when they stimulated him in the arms and legs, th ere is no focal withdrawal or generalized response. Nursing staff did note possibility at one point of what may look like seizure like activity with the arms bilaterally going up and remaining stiff fo r a short while. The patient was loaded with Keppra and was kept on 5 mg twice daily. EEG is not av ailable for an entire week. He did have a CT scan of his head while in the emergency room on 12/02. This study showed no acute ischemic or hemorrhagic findings. The cervical spine MRI showed no fract ures. Past Medical History: As noted. Allergies: ACETAMINOPHEN, TETRACYCLINES, IODINATED CONTRAST, AND SULFA. Medications: Amiodarone 900 mg IV every 24 hours, aspirin 81 mg daily, cefepime 2 g every 12 hours, fentanyl citrate 25 mcg IV every 4 hours, Keppra 500 mg twice daily, Versed 2 mg IV as needed. He is also on propofol drip and Brilinta on board. Family History: Noncontributory. Social History: No recent alcohol, tobacco, or IV drug use. Laboratory Studies: White blood cell count 7.1, hemoglobin 10.2, platelets 152. INR 1.21, PTT of 91 .9. More recent arterial blood gas 7.33 pH, pCO2 of 42, PO2 of 97. Sodium 144, potassium 3.9, chlor regis 113, carbon dioxide 33, BUN 53, creatinine 3.23, AST 133, ALT 55, and alkaline phosphatase of 92. TSH 2.26, free T4 0.82 and his latest troponins 1 high sensitivity 37,779. Physical Examination: Vital Signs: Blood pressure 123/76, pulse 60, respiratory rate 18, temperature is afebrile and pulse is 97 to 100. General: He is breathing over the machine, but no significant change in respiration on stimulation o f the feet and the hands. HEENT: His eyes on opening were conjugate and straight head. There was no eye deviation. Pupils we re around 2 mm and he did not have a visual threat response. No clear doll's eyes response noted. H is tone was normal in upper and lower extremities. He did not have any clonic or jerking activities noted. Assessment: Mr. Ball is an 79-year-old patient status post resuscitation, who now is over around 36 hours following resuscitation. Initial CT scan showed no evidence of loss of cedeño-white distinct ion or cerebral edema. That is not expected at that early time. He did have what appears to be a my ocardial infarction in addition to of course having resuscitation. Here potentially is a systemic in fection as well as renal failure. At this point, the patient's prognosis is poor for very good recov rudy given he is now around 36 hours with no significant improvement in his level of functioning. How ever, if he is give more time and a CT scan of the head shows no loss of cedeño-white distinction, pres erved cortical ribbon appearance, no significant edema otherwise, and his blood work begins to improv e and the EEG can be done, which will be in about next week that may suggest a better prognosis. The patient's family did say he did not want to be intubated, did not want to be put in a feeding tube; however, he is currently on that and if his condition does not improve, may consider withdrawal of ca re. At this point, the patient will have a repeat CT scan without contrast in the morning to determi ne the state of his potential edema in the central nervous system and he should have continued suppor tive care at this point including his nutrition, which is ongoing by his primary team. He will be fo llowed in the morning. KAI Voice ID: [id number] Report ID: [id number]
[2024-12-04 05:08] LABS: Absolute Lymphocytes (CBC) 0.3 K/uL (0.7-4.9); Hematocrit 27.8 % (39.6-49.0); Hemoglobin 9.0 g/dL (13.6-17.9); MCH 33.0 pg (27.0-35.0); MCHC 32.5 g/dL (32.0-36.0); MCV 101.7 fL (80-100); MPV 9.4 fL (7.6-11.3); Nucleated RBC Absolute Count 0.0 (0-0); Nucleated Red Blood Cells % 0.0 % (0-0); RBC Red Blood Cell Count 2.74 M/uL (4.33-5.43); White Blood Count 5.80 thou/uL (4.3-10.9)
[2024-12-04 05:21] LABS: Anion Gap 8.7 mEq/L (5.0-15.0); Potassium 3.7 mEq/L (3.5-5.1)
[2024-12-04 05:22] LABS: ALT/SGPT 42.0 U/L (16-61); AST/SGOT 67.0 U/L (15-37); Albumin 2.6 g/dL (3.4-5.0); Albumin/Globulin Ratio 0.9 (1.1-1.8); Alkaline Phosphatase 76.0 U/L (45-117); BUN Blood Urea Nitrogen 46.0 mg/dL (7-18); Globulin 2.9 g/dL (2.3-3.5); Glucose Level 134.0 mg/dL (74-106); Magnesium 2.2 mg/dL (1.6-2.4)
[2024-12-04 05:33] LABS: Blood Morphology Comment NOT SEEN (NOT SEEN); Differential Total Cells Count 100; Segmented Neutrophils 76 % (40-80)
[2024-12-04] MEDS: NA CHLORIDE 0.9% 500 ML ONE (07:41)
[2024-12-04] MEDS: NA CHLORIDE 0.9% 500 ML IV ONE ×2 (07:41→14:55)
[2024-12-04] MEDS: NOREPINEPHRINE BITARTRATE/D5W 4 MG/250 ML KIT IV ONE (07:44)
[2024-12-04] MEDS: D5 0.9 NS 1,000 ML IV SCH (07:46)
[2024-12-04] MEDS ORDERED: NOREPINEPHRINE 4 MG in D5W 250 ML IV SCH (08:00)
--- NOTE | 2024-12-04 08:08 | RAD REPORT ---
EXAM: CT Head Brain Wo Cont HISTORY: brain injury s/p cardiac arrest COMPARISON: 02/15/2022 TECHNIQUE: Multiple contiguous axial images were obtained for a CT of the brain without contrast. Sag ittal and coronal reformats were performed. One or more of the following dose reduction techniques were used: Automated exposure control, adjus tment of the mA and kV according to patient size, and iterative reconstruction. Unless otherwise specified, incidental findings do not require dedicated imaging follow-up. FINDINGS: No evidence of hydrocephalus, intracranial hemorrhage, or extra-axial fluid collection. Mild brain atrophy with mild periventricular and deep white matter chronic microvascular ischemic ch anges present. The calvarium is intact. The visualized paranasal sinuses and mastoid air cells are essentially clear . IMPRESSION: No evidence of acute intracranial abnormality.
[2024-12-04] MEDS: ASPIRIN 81 MG CHEWABLE TABLET PO SCH (08:49)
--- NOTE | 2024-12-04 09:52 | RAD REPORT ---
EXAMINATION: ONE VIEW CHEST XR CLINICAL INDICATION: Male, 79 years old.,hypoxia/ett placement TECHNIQUE: Frontal chest projection is submitted. Examination is limited by patient positioning and t echnique. COMPARISON: 12/03/2024 FINDINGS: Decreased inspiratory effort limits evaluation. Endotracheal tube, enteric tube, and right arm PICC i n unchanged positions. Left chest wall pacer/AICD place. Decreased inspiratory effort limits evaluation. Hazy bibasilar airspace opacities, stable. No pneumothorax or sizable effusion. The hear t is normal in size. Mediastinal contours are unremarkable. IMPRESSION: Hazy bibasilar opacities, stable, within limits of differences in patient rotation suboptimal inspira tory effort. Findings may relate to pulmonary edema. Underlying pneumonia cannot be excluded.
[2024-12-04] MEDS: AMIODARONE HCL 200 MG TAB PO SCH (11:13)
--- NOTE | 2024-12-04 11:59 | P.PN ---
Subjective Date of Service: 12/04/24 Chief Complaint: V-fib arrest with ROSC Subjective: No new changes Review of Systems 10-point ROS is otherwise unremarkable Physical Examination - Vital Signs Temperature: 98.2 F Blood Pressure: 109/42 Pulse: 60 Respirations: 14 Pulse Ox (%): 100 - Physical Exam General: Other (intubated, sedated) HEENT: Atraumatic, PERRLA, EOMI Neck: Supple, JVD not distended Respiratory: Clear to auscultation bilaterally, Normal air movement Cardiovascular: Regular rate/rhythm, Normal S1 S2 Gastrointestinal: Normal bowel sounds, No tenderness Musculoskeletal: No tenderness Integumentary: No rashes Neurological: Normal speech, Normal tone, Normal affect Lymphatics: No axilla or inguinal lymphadenopathy - Studies Medications List Reviewed: Yes Assessment And Plan - Current Problems (Diagnosis) (1) Cardiac arrest Current Visit: Yes Status: Acute Plan: Patient is s/p coronary angiogram, PCI LAD and OM1 done, LPDA is occluded, most likely culprit, wire will not cross ASA 81 mg daily Brilinta 90 mg po BID (2) Ventricular tachyarrhythmia Current Visit: Yes Status: Acute Plan: continue Amiodarone 200 mg po BID continue to monitor on tele
--- NOTE | 2024-12-04 12:45 | P.PN ---
Subjective Date of Service: 12/04/24 Chief Complaint: Hypotension Patient was doing well until he his blood pressure suddenly dropped a presume that he is having a hematoma from his cardiac catheterization site otherwise oxygenation is satisfactory Review of Systems is unable to be obtained Physical Examination - Vital Signs Temperature: 98.2 F Blood Pressure: 109/42 Pulse: 60 Respirations: 14 Pulse Ox (%): 100 - Physical Exam General: Unresponsive Respiratory: Clear to auscultation bilaterally Cardiovascular: Regular rate/rhythm, Normal S1 S2, Edema - Studies Medications List Reviewed: Yes Assessment And Plan - Current Problems (Diagnosis) (1) Cardiac arrest Current Visit: Yes Status: Acute Plan: Status post cardiac arrest on amiodarone stable no further arrhythmias status post stents placement (2) Hypotension Current Visit: Yes Status: Acute Plan: I suspect is from the bleeding from his cardiac catheterization lunchroom monitor hemoglobin patient was started on vasopressors fluid boluses monitor H&H probably need a CT scan of the abdomen doubt sepsis cultures are still pending chest x-ray reviewed is clear endotracheal tube satisfactory position ventilat ory settings reviewed no change Qualifiers: Hypotension type: postprocedural hypotension Qualified Code(s): I95.81 - Postprocedural hypotension
[2024-12-04] MEDS: ALBUTEROL 2.5 MG/3 ML NEB SOL NEB SCH (13:03)
[2024-12-04] MEDS: IPRATROPIUM BROM 0.5MG/2.5ML NEB SCH (13:03)
[2024-12-04 13:47] LABS: Hematocrit 25.2 % (39.6-49.0); Hemoglobin 8.1 g/dL (13.6-17.9)
[2024-12-04] MEDS ORDERED: DEXMEDETOMIDINE HCL 200 MCG in NA CHLORIDE 0.9% 98 ML IV SCH (14:00)
--- NOTE | 2024-12-04 15:09 | P.PN ---
Date of Service: 12/04/24 79-year-old gentleman. All the information has been obtained from the record as the patient being intubated. The patient well known to me from the office, last seen back in November 12, 2024. 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 The patient chronic kidney disease, as I mentioned secondary to solitary kidney, baseline creatinine 3, GFR of 17 as of November 2024. Apparently, the patient came to the hospital complaining from atrial fibrillation with RVR. The patient had cardiac arrest. CPR was initiated. The patient was cardioverted, received Levophed, then weaned from Levophed. The patient had cardiac cath today and 2 stents were placed. Levophed was resumed. The patient had good urine output of 950 in the last 24 hours Patient's status post cardiac cath yesterday patient developed hematoma over the area of the cannulation for the cardiac cath patient was weaned from pressor yesterday back on a pressor today Physical Examination: Temp Pulse Resp BP Pulse Ox 98.2 F 70 22 H 77/41 L 100 12/04/24 12:46 12/04/24 13:45 12/04/24 13:45 12/04/24 13:45 12/04/24 13:45 Patient on vent FiO2 30% saturating above 96% Chest: Faint rales bilateral. Heart: S1, S2 systolic murmur. Abdomen: Soft, nontender. Extremities: +1 edema. Hematoma on the right groin Neurologic: The patient on vent, patient awake following command Laboratory Last Values WBC 4.80 thou/uL (4.3-10.9) 12/02/24 10:17 RBC 3.31 M/uL (4.33-5.43) L 12/02/24 10:17 Hgb 11.0 g/dL (13.6-17.9) L 12/02/24 10:17 Hct 33.9 % (39.6-49.0) L 12/02/24 10:17 MCV 102.6 fL (80-100) H 12/02/24 10:17 MCH 33.1 pg (27.0-35.0) 12/02/24 10:17 MCHC 32.3 g/dL (32.0-36.0) 12/02/24 10:17 RDW 15.1 % (12.1-15.2) 12/02/24 10:17 Plt Count 156 thou/uL (152-406) 12/02/24 10:17 MPV 8.4 fL (7.6-11.3) 12/02/24 10:17 Neutrophils % 61.6 % (41.7-73.7) 12/02/24 10:17 Lymphocytes % 23.3 % (15.3-44.8) 12/02/24 10:17 Monocytes % 8.9 % (3.3-12.3) 12/02/24 10:17 Eosinophils % 5.2 % (0-4.4) H 12/02/24 10:17 Basophils % 1.0 % (0-1.3) 12/02/24 10:17 Absolute Neutrophils 2.9 K/uL (1.8-8.0) 12/02/24 10:17 Absolute Lymphocytes 1.1 K/uL (0.7-4.9) 12/02/24 10:17 Absolute Monocytes 0.4 K/uL (0.1-1.3) 12/02/24 10:17 Absolute Eosinophils 0.2 K/uL (0-0.5) 12/02/24 10:17 Absolute Basophils 0.0 K/uL (0-0.5) 12/02/24 10:17 PT 13.6 SECONDS (10-13.0) H 12/02/24 10:17 INR 1.21 12/02/24 10:17 pH 7.20 (7.35-7.45) L* 12/02/24 10:18 pCO2 49 mmHg (35-45) H 12/02/24 10:18 pO2 316 mmHg (75-100) H 12/02/24 10:18 HCO3 19.5 mmol/L (22.0-28.0) L 12/02/24 10:18 Base Excess -8.5 mmol/L (-2.0-3.0) L 12/02/24 10:18 Oxyhemoglobin 97.4 % (94.0-97.0) H 12/02/24 10:18 ABG O2 Sat (Measured) 99.9 % (92.0-98.5) H 12/02/24 10:18 ABG Carboxyhemoglobin 0.9 % (0.0-1.5) 12/02/24 10:18 ABG Methemoglobin 1.1 % (0.0-1.5) 12/02/24 10:18 Other Total Hgb 10.4 g/dL (12.0-18.0) L 12/02/24 10:18 Inspired O2 100.0 % 12/02/24 10:18 Sodium 143 mEq/L (136-145) 12/02/24 10:17 Potassium 3.8 mEq/L (3.5-5.1) 12/02/24 10:17 Chloride 113 mEq/L (98-107) H 12/02/24 10:17 Carbon Dioxide 21 mEq/L (21-32) 12/02/24 10:17 Anion Gap 12.8 mEq/L (5.0-15.0) 12/02/24 10:17 BUN 55 mg/dL (7-18) H 12/02/24 10:17 Creatinine 3.40 mg/dL (0.70-1.30) H 12/02/24 10:17 Est GFR (CKD-EPI) 18 ml/min (=/>90) L 12/02/24 10:17 Glucose 181 mg/dL (74-106) H 12/02/24 10:17 Calcium 8.4 mg/dL (8.5-10.1) L 12/02/24 10:17 Magnesium 2.5 mg/dL (1.6-2.4) H 12/02/24 10:17 Total Bilirubin 0.5 mg/dL (0.2-1.0) 12/02/24 10:17 Direct Bilirubin 0.3 mg/dL (0-0.2) H 12/02/24 10:17 Indirect Bilirubin 0.2 mg/dL (0.2-0.8) 12/02/24 10:17 AST 96 U/L (15-37) H 12/02/24 10:17 ALT 59 U/L (16-61) 12/02/24 10:17 Alkaline Phosphatase 104 U/L (45-117) 12/02/24 10:17 Troponin I High Sens 372.6 pg/mL (<58.9) H* 12/02/24 10:17 NT-Pro-B Natriuret Pep 2413 pg/mL (<450) H 12/02/24 10:17 Serum Total Protein 6.6 g/dL (6.4-8.2) 12/02/24 10:17 Albumin 3.1 g/dL (3.4-5.0) L 12/02/24 10:17 Globulin 3.5 g/dL (2.3-3.5) 12/02/24 10:17 Albumin/Globulin Ratio 0.9 (1.1-1.8) L 12/02/24 10:17 Albuterol Sulfate (Albuterol 2.5 Mg/3 Ml Neb Lyndsay) 2.5 mg NEB [id number] [facility] Last Admin: 12/04/24 13:03 Dose: 2.5 mg Amiodarone HCl (Amiodarone Hcl 200 Mg Tab) 200 mg PO BID [facility] Last Admin: 12/04/24 11:13 Dose: 200 mg Aspirin (Aspirin 81 Mg Chewable Tablet) 81 mg PO DAILY [facility] Last Admin: 12/04/24 08:49 Dose: 81 mg Fentanyl Citrate (Fentanyl Citr 100 Mcg/2 Ml) 25 mcg IV Q4HP PRN PRN Reason: Pain scale 8-10 (Severe) Last Admin: 12/02/24 18:36 Dose: 25 mcg Heparin Sodium (Porcine) (Heparin 1,000 Unit/Ml Vial) 0 unit IV PRN PRN PRN Reason: Heparin Re-Bolus Per Protocol Last Admin: 12/02/24 23:05 Dose: 3,000 unit Heparin Sodium (Porcine) (Heparin 5000 Unit/Ml 1 Ml Vial) 5,000 unit SQ Q8HR [facility] Last Admin: 12/04/24 08:49 Dose: 5,000 unit Cefepime HCl 2 gm/ Sodium (Chloride) 100 mls @ 200 mls/hr IV Q12HR [facility]; Protocol Last Admin: 12/04/24 08:49 Dose: 100 mls Levetiracetam 500 mg/ Sodium (Chloride) 105 mls @ 420 mls/hr IV BID [facility] Last Admin: 12/04/24 08:49 Dose: 105 mls Dextrose/Sodium Chloride (D5w Ns 1-Liter Bag) 1,000 mls @ 75 mls/hr IV .[id number] [facility] Last Admin: 12/04/24 07:46 Dose: 1,000 mls Dexmedetomidine HCl 1,000 mcg/ (Sodium Chloride) 500 mls @ 12.07 mls/hr IV TITR [facility]; Protocol Norepinephrine Bitartrate 16 (mg/ Dextrose) 266 mls @ 12.04 mls/hr IV TITR [facility]; Protocol Ipratropium [place] (Ipratropium Brom 0.5mg/2.5ml) 0.5 mg NEB [id number] [facility] Last Admin: 12/04/24 13:03 Dose: 0.5 mg Midazolam HCl (Midazolam Hcl 2 Mg/2 Ml Inj) 2 mg IV Q2HP PRN PRN Reason: Sedation-Propofol not effect Mupirocin (Mupirocin Nasal 2 Appl/1 Gm Tube) 1 appl [place] BID [facility] Stop: 12/07/24 09:01 Last Admin: 12/04/24 08:50 Dose: 1 appl Pantoprazole Sodium (Pantoprazole 40 Mg Inj) 40 mg IVP DAILY [facility]; Protocol Last Admin: 12/04/24 08:49 Dose: 40 mg Sodium Chloride (Sodium Chloride 0.9% 10ml Inj) 10 ml IV UD PRN PRN Reason: Diluant Ticagrelor (Ticagrelor 90 Mg Tablet) 90 mg PO BID [facility] Last Admin: 12/04/24 08:49 Dose: 90 mg Assessment And Plan: 1. Acute kidney injury on advanced chronic kidney disease secondary to cardiorenal, secondary to atrial fibrillation, cardiac arrest, poor perfusion ATN, nonoliguric, /contrast-induced nephropathy s Continue holding the diuresis. We will continue on the hydration for the next 12 hours and we will follow up the patient closely. I had discussion with the by bedside if kidney function decline, the patient may need to be initiated on renal replacement therapy. on agreement and apparently had discussion with the before and they agreed if needing dialysis to proceed anyhow I do not see the urgency to initiate any renal replacement therapy for the time being we will continue To monitor the patient closely we will follow up the patient closely. 2. Hypertension, currently low blood pressure patient on Levophed : . Hold diuresis. Hold SMILEY inhibitor or ARB for the time being. Will bolus the patient with 500 normal saline continue IV hydration 3. Atrial fibrillation with RVR with cardiac arrest. Asked by Cardiology, continue on anticoagulation. 4. CAD non-ST elevation ME complicated with congestive heart failure with exacerbation. Currently, the patient on vent. The patient had cardiac cath with contrast with advanced kidney disease. I am going to hold the diuresis for this 24 hour. We will plan to resume it tomorrow and we will follow up the patient. 5. Diabetes, as by primary. 6. Acidosis, non-anion gap metabolic acidosis secondary to poor perfusion. I do not see the need for any bicarb. 7. Hypernatremia. No need for treatment. The patient currently on IV fluid. We will follow up. 8-cardiogenic shock/hypovolemic shock secondary to inguinal hematoma complicated with target organ damage including acute kidney injury secondary to ATN: Continue fluid resuscitation Continue pressor support 9-chronic kidney disease stage IV secondary to renal mass loss solitary kidney with acute kidney injury as above Thank you for allowing us to participate in the care of your patient. Time spent evaluating the patient, discussing the case with the pilot steam yacht including ICU staff and hospitalist more than 55 minutes
[2024-12-04] MEDS: NOREPINEPHRINE 16 MG in D5W 250 ML IV SCH (15:38)
[2024-12-04] MEDS: DEXMEDETOMIDINE HCL 1,000 MCG in NA CHLORIDE 0.9% 490 ML IV SCH (16:45)
--- NOTE | 2024-12-04 17:36 | P.PN ---
Subjective Date of Service: 12/04/24 Chief Complaint: Hypotension Patient had an episode of hypoxia on the ventilator. He needed bagging, suctioning and FiO2 up to 100% which improved his oxygen saturation. He was also profoundly hypotensive this morning and was given IV NS bolus. Blood pressure has stabilized on Levophed drip. Patient is currently needing some sedation to tolerate the vent No recorded fever. Physical Examination - Vital Signs Temperature: 98.2 F Blood Pressure: 77/41 Pulse: 60 Respirations: 22 Pulse Ox (%): 100 - Studies Medications List Reviewed: Yes Assessment And Plan - Plan Physical examination General: Unresponsive, intubated. HEENT: Atraumatic, Pupils fixed and pinpoint, ET tube and NG tube in place. Neck: Supple, 2+ carotid pulse no bruit Respiratory: Bilateral upper airway transmitted sounds, Normal air movement, no crackles. Cardiovascular: Heart sounds 1 and 2 normal, regular rhythm, no murmur. bilateral lower extremity pitting edema, right greater than left Gastrointestinal: Normal bowel sounds, No tenderness, no hepatosplenomegaly Musculoskeletal: No tenderness, Integumentary: Hemosiderin staining bilateral legs. Neurological: Unresponsive on ventilator, patient moving all extremities spontaneously. 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 Bryan is following Status post cardiac catheterization, LAD and OM stented Status post Integrilin drip, Continue Plavix and Brilinta via NG tube. Wean of Levophed drip as tolerated PICC line in place Echocardiogram was nondiagnostic. Continue mechanical ventilatory, intermittent suctioning as needed. Anoxic encephalopathy Seizures 2 episodes of seizures reported. Neurology consulted, case discussed with Dr. Nath who recommended MRI of the brain, EEG. Patient started on IV Keppra(1 g IV loading dose followed by 500 mg twice a day) given 2 episodes of seizures. Prognostication pending MRI of the brain and EEG results. Patient is too unstable for MRI of the brain. Continue IV cefepime. CKD 4 Gentle IV fluids Nephrology Dr. Davies is following and assisting with management. Monitor chemistry daily Diabetes mellitus type 2 Every 6 hours Accu-Chek sliding scale insulin COPD As needed nebulizer treatments DVT PPX: Heparin SQ Code status:full code
[2024-12-05 06:01] LABS: Absolute Lymphocytes (CBC) 0.9 K/uL (0.7-4.9); Hematocrit 23.5 % (39.6-49.0); Hemoglobin 7.7 g/dL (13.6-17.9); MCH 33.2 pg (27.0-35.0); MCHC 32.9 g/dL (32.0-36.0); MCV 101.0 fL (80-100); MPV 9.1 fL (7.6-11.3); Nucleated RBC Absolute Count 0.0 (0-0); Nucleated Red Blood Cells % 0.0 % (0-0); RBC Red Blood Cell Count 2.33 M/uL (4.33-5.43); White Blood Count 10.20 thou/uL (4.3-10.9)
[2024-12-05 06:20] LABS: ALT/SGPT 32.0 U/L (16-61); AST/SGOT 42.0 U/L (15-37); Albumin 2.4 g/dL (3.4-5.0); Albumin/Globulin Ratio 0.9 (1.1-1.8); Alkaline Phosphatase 66.0 U/L (45-117); Anion Gap 10.9 mEq/L (5.0-15.0); BUN Blood Urea Nitrogen 52.0 mg/dL (7-18); Globulin 2.7 g/dL (2.3-3.5); Glucose Level 171.0 mg/dL (74-106); Magnesium 2.1 mg/dL (1.6-2.4); Potassium 3.9 mEq/L (3.5-5.1)
[2024-12-05] MEDS: NA CHLORIDE 0.9% 250 ML IV ONE (10:19)
[2024-12-05 10:30] LABS: Absolute Lymphocytes (CBC) 0.7 K/uL (0.7-4.9); Hematocrit 22.6 % (39.6-49.0); Hemoglobin 7.2 g/dL (13.6-17.9); MCH 32.7 pg (27.0-35.0); MCHC 32.0 g/dL (32.0-36.0); MCV 102.0 fL (80-100); MPV 8.9 fL (7.6-11.3); Nucleated RBC Absolute Count 0.0 (0-0); Nucleated Red Blood Cells % 0.1 % (0-0); RBC Red Blood Cell Count 2.21 M/uL (4.33-5.43); White Blood Count 10.00 thou/uL (4.3-10.9)
--- NOTE | 2024-12-05 12:54 | P.PN ---
Subjective Date of Service: 12/05/24 Chief Complaint: Hypotension Patient's condition is stable he still requiring Levophed and has been a decrease in hemoglobin patient is alert at times cooperative and responsive Review of Systems is unable to be obtained Physical Examination - Vital Signs Temperature: 97.9 F Blood Pressure: 111/48 Pulse: 49 Respirations: 17 Pulse Ox (%): 100 - Physical Exam General: Alert, Unresponsive HEENT: Atraumatic Neck: Supple Respiratory: Clear to auscultation bilaterally Cardiovascular: No edema, Normal S1 S2, Edema Gastrointestinal: Other (Has some bruising in his groin) - Studies Medications List Reviewed: Yes Assessment And Plan - Current Problems (Diagnosis) (1) Cardiac arrest Current Visit: Yes Status: Acute Plan: Condition stable on amiodarone drip patient's chest x-ray is clear endotracheal tube satisfactory he is only on FiO2 of 30% (2) Hypotension Current Visit: Yes Status: Acute Plan: Possible bleeding his hemoglobin has declined to 7.2 we will plan to do a CT of the abdomen pelvis transfuse 1 or 2 units of packed red blood cells and probably wean him off from the ventilator once he is off the vasopressors blood cultures are negative doubt infection Qualifiers: Hypotension type: postprocedural hypotension Qualified Code(s): I95.81 - Postprocedural hypotension
[2024-12-05] MEDS: NA CHLORIDE 0.9% 250 ML ONE (13:40)
--- NOTE | 2024-12-05 13:53 | P.PN ---
Subjective Date of Service: 12/05/24 Chief Complaint: Hypotension No issues reported overnight. According to the nursing staff report, patient still complains to verbal off sedation, however does not track with his eyes or obey simple instructions. Patient is requiring Levophed drip. His systolic blood pressure is greater than 120 on the Levophed drip however he becomes hypotensive with attempt to wean the drip. No recorded fever. Patient hemoglobin dropped to 7.2 today Physical Examination - Vital Signs Temperature: 97.9 F Blood Pressure: 125/57 Pulse: 62 Respirations: 18 Pulse Ox (%): 100 - Studies Medications List Reviewed: Yes Assessment And Plan - Plan Physical examination General: Unresponsive, intubated. HEENT: Atraumatic, Pupils fixed and pinpoint, ET tube and NG tube in place. Neck: Supple, 2+ carotid pulse no bruit Respiratory: Bilateral upper airway transmitted sounds, Normal air movement, no crackles. Cardiovascular: Heart sounds 1 and 2 normal, regular rhythm, no murmur. bilateral lower extremity pitting edema, right greater than left Gastrointestinal: Normal bowel sounds, No tenderness, no hepatosplenomegaly Musculoskeletal: No tenderness, Integumentary: Hemosiderin staining bilateral legs. Neurological: Unresponsive on ventilator, patient moving all extremities spontaneously. 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 Bryan is following Status post cardiac catheterization, LAD and OM stented Status post Integrilin drip, Continue Plavix and Brilinta via NG tube. Wean of Levophed drip as tolerated PICC line in place Echocardiogram was nondiagnostic. Continue mechanical ventilatory, intermittent suctioning as needed. Anoxic encephalopathy Seizures 2 episodes of seizures reported. Neurology consulted, case discussed with Dr. Nath who recommended MRI of the brain, EEG. Patient started on IV Keppra(1 g IV loading dose followed by 500 mg twice a day) given 2 episodes of seizures. Prognostication pending MRI of the brain and EEG results. Patient is too unstable for MRI of the brain. Continue IV cefepime. CKD 4 Gentle IV fluids Nephrology Dr. Davies is following and assisting with management. Monitor chemistry daily Diabetes mellitus type 2 Every 6 hours Accu-Chek sliding scale insulin COPD As needed nebulizer treatments 12/05/2024 1. Acute blood loss anemia. Hemoglobin dropped from 10.2-7.2. Patient had hematoma in the right thigh at the entry site for cardiac catheterization. Transfuse 1 unit PRBC, monitor and transfuse as needed for hemoglobin less than 8. 2. Continue aspirin and Brilinta via NGT, statins via NG tube 3. Continue mechanical ventilation, may need to assess dependency on the vent with sedation vacation and breathing trials after Levophed drip has been weaned off. Bronchodilators as needed. 4. Continue Keppra for seizures. MRI of the brain pending extubation, EEG hopefully next week as extrusion technician is not available. Neurology Dr. Nath is following for prognostication. 5. Continue IV fluid for GAL. Patient given 250 mL bolus today. He received 1 L bolus yesterday. Monitor renal function. 6. Dietitian consult for tube feeding. Continue insulin sliding scale. 7. Continue to replace volume depletion as possible, wean off Levophed drip as tolerated DVT PPX: Heparin SQ Code status:full code
--- NOTE | 2024-12-05 13:55 | P.PN ---
Subjective Date of Service: 12/05/24 Chief Complaint: Hypotension Subjective: No new changes (still intubated, per able to open eyes on command and grimce on pain) Review of Systems is unable to be obtained (intubated, sedated.) Physical Examination - Vital Signs Temperature: 97.9 F Blood Pressure: 125/57 Pulse: 62 Respirations: 18 Pulse Ox (%): 100 - Physical Exam General: Other (intubated, sedated) HEENT: Atraumatic, PERRLA, EOMI Neck: Supple, JVD not distended Respiratory: Clear to auscultation bilaterally, Normal air movement Cardiovascular: Regular rate/rhythm, Normal S1 S2 Gastrointestinal: Normal bowel sounds, No tenderness Musculoskeletal: No tenderness Integumentary: No rashes Neurological: Normal speech, Normal tone, Normal affect Lymphatics: No axilla or inguinal lymphadenopathy - Studies Medications List Reviewed: Yes Assessment And Plan - Current Problems (Diagnosis) (1) Cardiac arrest Current Visit: Yes Status: Acute Plan: Patient is s/p coronary angiogram, PCI LAD and OM1 done, LPDA is occluded, most likely culprit, wire will not cross ASA 81 mg daily Brilinta 90 mg po BID patient had a hematoma the second day after procedure, checked area, look soft with no sign of hematoma, ICU team worried about HgB drop for retroperitoneal hemorrhage, i do not beleive this is possible as patient will be significantly unstable if this happened, agree with getting CT abdomen and pelvis. (2) Ventricular tachyarrhythmia Current Visit: Yes Status: Acute Plan: continue Amiodarone 200 mg po BID continue to monitor on tele currently paced.
--- NOTE | 2024-12-05 16:50 | RAD REPORT ---
EXAMINATION: Abdomen Pelvis Wo Contrast CLINICAL INDICATION: Male, 79 years old.RO bleeding TECHNIQUE: CT abdomen and pelvis was performed, without IV contrast, as per department protocol. Axia l, sagittal and coronal reconstructions were obtained. One or more of the following dose reduction techniques were used: Automated exposure control, adjustment of the mA and/or kV according to the pat ient size, and/or iterative reconstruction. Unless otherwise specified, incidental findings do not require dedicated imaging follow-up. [id number]. IV CONTRAST: Not administered. COMPARISON: 12/02/2024 FINDINGS: The lack of intravenous contrast limits the sensitivity of this exam for evaluation of solid visceral organs, vascular structures, and retroperitoneum. LOWER CHEST: Consolidative airspace disease in the lower lungs which may be atelectasis. Pacemaker le ads. Coronary calcifications. UPPER GI: Yonas-en-Y gastric bypass. LIVER: No significant focal abnormality. GALLBLADDER/BILE DUCTS: Cholelithiasis without CT evidence of acute cholecystitis.? PANCREAS: Cystic lesion in the uncinate but demonstrated on the CT from 11/05/2024. SPLEEN: Unremarkable. ADRENALS: No adrenal masses. KIDNEYS AND URETERS: No hydronephrosis. Low density and/or too small to characterize renal lesions wh ich are statistically benign. There is some residual contrast within the renal parenchyma. ABDOMINAL AORTA AND OTHER VESSELS: Moderate atherosclerotic changes without aortic aneurysm. IVC filt er. PERITONEUM: No abnormal free fluid. No free air. LYMPH NODES: No pathologic lymphadenopathy. ABDOMINAL WALL: Unremarkable SMALL BOWEL/COLON: Small bowel has normal course and caliber. No colonic wall thickening or pericolon ic inflammatory changes. URINARY BLADDER: Decompressed by Acosta catheter. REPRODUCTIVE ORGANS: No pathologic process. MUSCULOSKELETAL: Large hematoma in the right inguinal region which may be from a vascular procedure. No retroperitoneal hematoma. Bridging osteophytes in the spine. ADDITIONAL FINDINGS: None. IMPRESSION: Moderate to large hematoma in the right inguinal region presumably from a prior vascular procedure. N o retroperitoneal hematoma. Evaluation for active bleeding not possible without IV contrast. Bilateral lower lobe consolidation which may be secondary to atelectasis or aspiration.
[2024-12-05] MEDS: KCL 20 MEQ/100 mL IVPB 20 MEQ/100 ML BAG IV SCH (17:07)
[2024-12-05] MEDS: Magnesium Sulfate 2gm IVPB 2 G/50 ML BAG IV ONE (17:07)
[2024-12-05 18:48] LABS: Hematocrit 22.6 % (39.6-49.0); Hemoglobin 7.5 g/dL (13.6-17.9)
--- NOTE | 2024-12-05 21:47 | PN ---
Date of Progress Note: 12/05/2024 Subjective: The patient is an 79-year-old man who is in ICU, remains intubated. He has chronic kidney disease, stage 3, advancing to stage 4; solitary kidney; morbid obesity; gastric bypass done in May 2017. The patient has chronic kidney disease secondary to solitary kidney and benign nephrosclerosis. Baseline creatinine level 3, GFR 17 as of November 2024. Currently, the patient came to the hospital complaining of palpitations. He was found to have atrial fibrillation with rapid ventricular response. The patient had cardiac arrest and had CPR initiated. The patient was cardioverted, received Levophed. Then, he was weaned off Levophed. The patient had cardiac catheterization yesterday, and 2 stents were placed. Review of Systems: Unobtainable. The patient is intubated, ventilated, remains in ICU. Physical Examination: Heart: S1, S2. Abdomen: Soft. Extremities: 1+ edema. Impression And Plan: 1. Acute on chronic kidney injury. The patient has advanced chronic kidney disease. He remains nonoliguric. His currently blood pressure medications on hold. The patient has severe hypotension and had Levophed drip. Monitor blood pressure closely. 2. Atrial fibrillation with rapid ventricular response, cardiac arrest. Anticoagulation per Cardiology. 3. Acidosis, non-anion gap metabolic acidosis secondary to advanced chronic kidney disease. 4. Hypernatremia. Adjust IV fluids. 5. Cardiogenic shock. Continue pressors, IV fluids as needed. 6. Chronic kidney disease, stage 4, secondary to solitary kidney and benign nephrosclerosis. Avoid nephrotoxic medications. BOB/CHANI Voice ID: [id number] Report ID: [id number] NELA
[2024-12-06 05:43] LABS: Absolute Lymphocytes (CBC) 0.4 K/uL (0.7-4.9); Hematocrit 20.8 % (39.6-49.0); Hemoglobin 7.0 g/dL (13.6-17.9); MCH 32.5 pg (27.0-35.0); MCHC 33.5 g/dL (32.0-36.0); MCV 97.1 fL (80-100); MPV 8.9 fL (7.6-11.3); Nucleated RBC Absolute Count 0.0 (0-0); Nucleated Red Blood Cells % 0.3 % (0-0); RBC Red Blood Cell Count 2.15 M/uL (4.33-5.43); White Blood Count 8.80 thou/uL (4.3-10.9)
[2024-12-06 06:02] LABS: ALT/SGPT 24.0 U/L (16-61); AST/SGOT 21.0 U/L (15-37); Albumin 2.3 g/dL (3.4-5.0); Albumin/Globulin Ratio 0.9 (1.1-1.8); Alkaline Phosphatase 66.0 U/L (45-117); Anion Gap 8.0 mEq/L (5.0-15.0); BUN Blood Urea Nitrogen 48.0 mg/dL (7-18); Globulin 2.7 g/dL (2.3-3.5); Glucose Level 154.0 mg/dL (74-106); Magnesium 2.5 mg/dL (1.6-2.4); Potassium 4.0 mEq/L (3.5-5.1)
[2024-12-06] MEDS: NA CHLORIDE 0.9% 250 ML ONE ×2 (08:42→11:48)
--- NOTE | 2024-12-06 10:34 | P.PN ---
Subjective Date of Service: 12/06/24 Chief Complaint: Patient on a ventilator anemic Patient's condition is stable however his hemoglobin is decreased again suspect that continual bleeding otherwise he is pretty stable Review of Systems is unable to be obtained Physical Examination - Vital Signs Temperature: 97.8 F Blood Pressure: 131/50 Pulse: 60 Respirations: 17 Pulse Ox (%): 100 - Physical Exam General: Alert, Cooperative Respiratory: Clear to auscultation bilaterally Cardiovascular: Edema - Studies Medications List Reviewed: Yes Assessment And Plan - Current Problems (Diagnosis) (1) Hypotension Current Visit: Yes Status: Acute Plan: Patient has a hematoma was transfused 2 units yesterday globin dropped again I suspect continual bleeding patient is on low-dose vasopressors hopefully can be weaned off after he has been given 2 units of red blood cells Qualifiers: Hypotension type: postprocedural hypotension Qualified Code(s): I95.81 - Postprocedural hypotension (2) Respiratory failure Current Visit: Yes Status: Acute Plan: Patient's oxygenation is satisfactory is only on 30% FiO2 chest x-ray is clear plan to wean off and extubate today Qualifiers: Chronicity: acute
--- NOTE | 2024-12-06 10:58 | P.PN ---
Date of Service: 12/06/24 79-year-old gentleman. All the information has been obtained from the record as the patient being intubated. The patient well known to me from the office, last seen back in November 12, 2024. 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 The patient chronic kidney disease, as I mentioned secondary to solitary kidney, baseline creatinine 3, GFR of 17 as of November 2024. Apparently, the patient came to the hospital complaining from atrial fibrillation with RVR. The patient had cardiac arrest. CPR was initiated. The patient was cardioverted, received Levophed, then weaned from Levophed. The patient had cardiac cath today and 2 stents were placed. Levophed was resumed. The patient had good urine output of 950 in the last 24 hours Patient's status post cardiac cath yesterday patient developed hematoma over the area of the cannulation for the cardiac cath patient was weaned from pressor yesterday back on a pressor today Physical Examination: Temp Pulse Resp BP Pulse Ox 97.8 F 60 17 131/50 L 100 12/06/24 10:34 12/06/24 10:34 12/06/24 10:34 12/06/24 10:34 12/06/24 10:34 Patient on vent FiO2 30% saturating above 96% Chest: Faint rales bilateral. Heart: S1, S2 systolic murmur. Abdomen: Soft, nontender. Extremities: +1 edema. Hematoma on the right groin Neurologic: The patient on vent, patient awake following command Amiodarone HCl (Amiodarone Hcl 200 Mg Tab) 200 mg PO BID [facility] Last Admin: 12/06/24 08:42 Dose: 200 mg Aspirin (Aspirin 81 Mg Chewable Tablet) 81 mg PO DAILY [facility] Last Admin: 12/06/24 08:43 Dose: 81 mg Fentanyl Citrate (Fentanyl Citr 100 Mcg/2 Ml) 25 mcg IV Q4HP PRN PRN Reason: Pain scale 8-10 (Severe) Last Admin: 12/05/24 17:44 Dose: 25 mcg Heparin Sodium (Porcine) (Heparin 1,000 Unit/Ml Vial) 0 unit IV PRN PRN PRN Reason: Heparin Re-Bolus Per Protocol Last Admin: 12/02/24 23:05 Dose: 3,000 unit Heparin Sodium (Porcine) (Heparin 5000 Unit/Ml 1 Ml Vial) 5,000 unit SQ Q8HR INGRID Last Admin: 12/06/24 09:00 Dose: Not Given Levetiracetam 500 mg/ Sodium (Chloride) 105 mls @ 420 mls/hr IV BID INGRID Last Admin: 12/06/24 08:43 Dose: 105 mls Dexmedetomidine HCl 1,000 mcg/ (Sodium Chloride) 500 mls @ 12.07 mls/hr IV TITR INGRID; Protocol Last Titration: 12/06/24 07:53 Dose: 0 mcg/kg/hr, 0 mls/hr Norepinephrine Bitartrate 16 (mg/ Dextrose) 266 mls @ 12.04 mls/hr IV TITR INGRID; Protocol Last Titration: 12/06/24 10:30 Dose: 0.06 mcg/kg/min, 7.2 mls/hr Dextrose/Sodium Chloride (D5w Ns 1-Liter Bag) 1,000 mls @ 50 mls/hr IV .Q20H INGRID Midazolam HCl (Midazolam Hcl 2 Mg/2 Ml Inj) 2 mg IV Q2HP PRN PRN Reason: Sedation-Propofol not effect Mupirocin (Mupirocin Nasal 2 Appl/1 Gm Tube) 1 appl [place] BID [facility] Stop: 12/07/24 09:01 Last Admin: 12/06/24 08:44 Dose: 1 appl Sodium Chloride (Sodium Chloride 0.9% 10ml Inj) 10 ml IV UD PRN PRN Reason: Diluant Ticagrelor (Ticagrelor 90 Mg Tablet) 90 mg PO BID [facility] Last Admin: 12/06/24 08:42 Dose: 90 mg Laboratory Last Values WBC 4.80 thou/uL (4.3-10.9) 12/02/24 10:17 RBC 3.31 M/uL (4.33-5.43) L 12/02/24 10:17 Hgb 11.0 g/dL (13.6-17.9) L 12/02/24 10:17 Hct 33.9 % (39.6-49.0) L 12/02/24 10:17 MCV 102.6 fL (80-100) H 12/02/24 10:17 MCH 33.1 pg (27.0-35.0) 12/02/24 10:17 MCHC 32.3 g/dL (32.0-36.0) 12/02/24 10:17 RDW 15.1 % (12.1-15.2) 12/02/24 10:17 Plt Count 156 thou/uL (152-406) 12/02/24 10:17 MPV 8.4 fL (7.6-11.3) 12/02/24 10:17 Neutrophils % 61.6 % (41.7-73.7) 12/02/24 10:17 Lymphocytes % 23.3 % (15.3-44.8) 12/02/24 10:17 Monocytes % 8.9 % (3.3-12.3) 12/02/24 10:17 Eosinophils % 5.2 % (0-4.4) H 12/02/24 10:17 Basophils % 1.0 % (0-1.3) 12/02/24 10:17 Absolute Neutrophils 2.9 K/uL (1.8-8.0) 12/02/24 10:17 Absolute Lymphocytes 1.1 K/uL (0.7-4.9) 12/02/24 10:17 Absolute Monocytes 0.4 K/uL (0.1-1.3) 12/02/24 10:17 Absolute Eosinophils 0.2 K/uL (0-0.5) 12/02/24 10:17 Absolute Basophils 0.0 K/uL (0-0.5) 12/02/24 10:17 PT 13.6 SECONDS (10-13.0) H 12/02/24 10:17 INR 1.21 12/02/24 10:17 pH 7.20 (7.35-7.45) L* 12/02/24 10:18 pCO2 49 mmHg (35-45) H 12/02/24 10:18 pO2 316 mmHg (75-100) H 12/02/24 10:18 HCO3 19.5 mmol/L (22.0-28.0) L 12/02/24 10:18 Base Excess -8.5 mmol/L (-2.0-3.0) L 12/02/24 10:18 Oxyhemoglobin 97.4 % (94.0-97.0) H 12/02/24 10:18 ABG O2 Sat (Measured) 99.9 % (92.0-98.5) H 12/02/24 10:18 ABG Carboxyhemoglobin 0.9 % (0.0-1.5) 12/02/24 10:18 ABG Methemoglobin 1.1 % (0.0-1.5) 12/02/24 10:18 Other Total Hgb 10.4 g/dL (12.0-18.0) L 12/02/24 10:18 Inspired O2 100.0 % 12/02/24 10:18 Sodium 143 mEq/L (136-145) 12/02/24 10:17 Potassium 3.8 mEq/L (3.5-5.1) 12/02/24 10:17 Chloride 113 mEq/L (98-107) H 12/02/24 10:17 Carbon Dioxide 21 mEq/L (21-32) 12/02/24 10:17 Anion Gap 12.8 mEq/L (5.0-15.0) 12/02/24 10:17 BUN 55 mg/dL (7-18) H 12/02/24 10:17 Creatinine 3.40 mg/dL (0.70-1.30) H 12/02/24 10:17 Est GFR (CKD-EPI) 18 ml/min (=/>90) L 12/02/24 10:17 Glucose 181 mg/dL (74-106) H 12/02/24 10:17 Calcium 8.4 mg/dL (8.5-10.1) L 12/02/24 10:17 Magnesium 2.5 mg/dL (1.6-2.4) H 12/02/24 10:17 Total Bilirubin 0.5 mg/dL (0.2-1.0) 12/02/24 10:17 Direct Bilirubin 0.3 mg/dL (0-0.2) H 12/02/24 10:17 Indirect Bilirubin 0.2 mg/dL (0.2-0.8) 12/02/24 10:17 AST 96 U/L (15-37) H 12/02/24 10:17 ALT 59 U/L (16-61) 12/02/24 10:17 Alkaline Phosphatase 104 U/L (45-117) 12/02/24 10:17 Troponin I High Sens 372.6 pg/mL (<58.9) H* 12/02/24 10:17 NT-Pro-B Natriuret Pep 2413 pg/mL (<450) H 12/02/24 10:17 Serum Total Protein 6.6 g/dL (6.4-8.2) 12/02/24 10:17 Albumin 3.1 g/dL (3.4-5.0) L 12/02/24 10:17 Globulin 3.5 g/dL (2.3-3.5) 12/02/24 10:17 Albumin/Globulin Ratio 0.9 (1.1-1.8) L 12/02/24 10:17 Assessment And Plan: 1. Acute kidney injury on advanced chronic kidney disease secondary to cardiorenal, secondary to atrial fibrillation, cardiac arrest, poor perfusion ATN, nonoliguric, /contrast-induced nephropathy s Continue holding the diuresis. Continue IV hydration we will follow up the patient closely. Do not see the need for renal replacement therapy for the time being 2. Hypertension, currently low blood pressure patient on Levophed : . Hold diuresis. Hold SMILEY inhibitor or ARB for the time being. Will bolus the patient with 500 normal saline continue IV hydration 3. Atrial fibrillation with RVR with cardiac arrest. Asked by Cardiology, errol delacruz on anticoagulation. 4. CAD non-ST elevation UT complicated with congestive heart failure with exacerbation. Currently, the patient on vent. The patient had cardiac cath with contrast with advanced kidney disease. I am going to hold the diuresis for this 24 hour. We will plan to resume it tomorrow and we will follow up the patient. 5. Diabetes, as by primary. 6. Acidosis, non-anion gap metabolic acidosis secondary to poor perfusion. I do not see the need for any bicarb. 7. Hypernatremia. No need for treatment. The patient currently on IV fluid. We will follow up. 8-cardiogenic shock/hypovolemic shock secondary to inguinal hematoma complicated with target organ damage including acute kidney injury secondary to ATN: Continue fluid resuscitation Continue pressor support 9-chronic kidney disease stage IV secondary to renal mass loss solitary kidney with acute kidney injury as above 10-local bleed from cath continue as needed transfusion Will monitor the patient Thank you for allowing us to participate in the care of your patient. Time spent evaluating the patient, discussing the case with the steam conditioning operator including ICU staff and hospitalist more than 55 minutes
[2024-12-06] MEDS: D5 0.9 NS 1,000 ML IV SCH (11:50)
--- NOTE | 2024-12-06 11:52 | P.PN ---
Subjective Date of Service: 12/06/24 Chief Complaint: Patient on a ventilator anemic No reported issues overnight. Patient placed on SIMV and he has been tolerating it. Hemoglobin dropped slightly from yesterday. He has been off Levophed. No recorded fever. Physical Examination - Vital Signs Temperature: 97.8 F Blood Pressure: 130/61 Pulse: 60 Respirations: 17 Pulse Ox (%): 100 - Studies Medications List Reviewed: Yes Assessment And Plan - Plan Physical examination General: Somnolent, intubated. HEENT: ET tube and NG tube in place. Neck: Supple Respiratory: Bilateral upper airway transmitted sounds, Normal air movement, no crackles. Cardiovascular: Heart sounds 1 and 2 normal, regular rhythm, no murmur. bilateral lower extremity pitting edema, right greater than left Gastrointestinal: Normal bowel sounds, No tenderness, no hepatosplenomegaly Musculoskeletal: No tenderness, Integumentary: Hemosiderin staining bilateral legs. Bruise noted on the medial aspect of the right thigh. Neurological: Somnolent on ventilator, patient moving all extremities spontaneously. 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 Bryan is following Status post cardiac catheterization, LAD and OM stented Status post Integrilin drip, Continue Plavix and Brilinta via NG tube. Wean of Levophed drip as tolerated PICC line in place Echocardiogram was nondiagnostic. Continue mechanical ventilatory, intermittent suctioning as needed. Anoxic encephalopathy Seizures 2 episodes of seizures reported. Neurology consulted, case discussed with Dr. Nath who recommended MRI of the brain, EEG. Patient started on IV Keppra(1 g IV loading dose followed by 500 mg twice a day) given 2 episodes of seizures. Prognostication pending MRI of the brain and EEG results. Patient is too unstable for MRI of the brain. Continue IV cefepime. CKD 4 Gentle IV fluids Nephrology Dr. Davies is following and assisting with management. Monitor chemistry daily Diabetes mellitus type 2 Every 6 hours Accu-Chek sliding scale insulin COPD As needed nebulizer treatments 12/05/2024 1. Acute blood loss anemia. Hemoglobin dropped from 10.2-7.2. Patient had hematoma in the right thigh at the entry site for cardiac catheterization. Transfuse 1 unit PRBC, monitor and transfuse as needed for hemoglobin less than 8. 2. Continue aspirin and Brilinta via NGT, statins via NG tube 3. Continue mechanical ventilation, may need to assess dependency on the vent with sedation vacation and breathing trials after Levophed drip has been weaned off. Bronchodilators as needed. 4. Continue Keppra for seizures. MRI of the brain pending extubation, EEG hopefully next week as supply technician is not available. Neurology Dr. Nath is following for prognostication. 5. Continue IV fluid for GAL. Patient given 250 mL bolus today. He received 1 L bolus yesterday. Monitor renal function. 6. Dietitian consult for tube feeding. Continue insulin sliding scale. 7. Continue to replace volume depletion as possible, wean off Levophed drip as tolerated 12/06/2024 1. Status post 1 unit PRBC transfusion for acute blood loss anemia secondary to hematoma. Patient plan for 2 more unit PRBC transfusion to keep his hemoglobin greater than 8. 2. Patient is needing aspirin and Brilinta for CAD with stents. Continue DAPT, hold subcutaneous heparin. 3. He is currently tolerating SIMV, off sedation and following commands per nursing report. Pulmonary is following for vent management. 4. MRI of the brain pending extubation, EEG planned for next week. Neurology is following. 5. Continue IV Keppra 6. Renal function is improving, urine output improved. Continue to monitor renal function. Nephrology is following 7. Start tube feeding with Jevity, insulin sliding scale 8. Continue to wean Levophed, continue isotonic fluid. 9. Blood culture: Negative. Continue empiric IV cefepime. DVT PPX: SCD Code status:full code
[2024-12-06 16:12] LABS: Hematocrit 25.5 % (39.6-49.0); Hemoglobin 8.7 g/dL (13.6-17.9)
[2024-12-07 05:56] LABS: Absolute Lymphocytes (CBC) 0.3 K/uL (0.7-4.9); Hematocrit 23.8 % (39.6-49.0); Hemoglobin 8.0 g/dL (13.6-17.9); MCH 32.2 pg (27.0-35.0); MCHC 33.6 g/dL (32.0-36.0); MCV 95.6 fL (80-100); MPV 8.7 fL (7.6-11.3); Nucleated RBC Absolute Count 0.0 (0-0); Nucleated Red Blood Cells % 0.2 % (0-0); RBC Red Blood Cell Count 2.49 M/uL (4.33-5.43); White Blood Count 7.70 thou/uL (4.3-10.9)
[2024-12-07 06:24] LABS: ALT/SGPT 21.0 U/L (16-61); AST/SGOT 17.0 U/L (15-37); Albumin 2.3 g/dL (3.4-5.0); Albumin/Globulin Ratio 0.8 (1.1-1.8); Alkaline Phosphatase 64.0 U/L (45-117); Anion Gap 11.0 mEq/L (5.0-15.0); BUN Blood Urea Nitrogen 42.0 mg/dL (7-18); Globulin 2.8 g/dL (2.3-3.5); Glucose Level 154.0 mg/dL (74-106); Magnesium 2.6 mg/dL (1.6-2.4); Potassium 4.0 mEq/L (3.5-5.1)
--- NOTE | 2024-12-07 09:31 | P.PN ---
Subjective Date of Service: 12/07/24 Chief Complaint: Patient on a ventilator anemic Subjective: No new changes Review of Systems 10-point ROS is otherwise unremarkable Physical Examination - Vital Signs Temperature: 97.5 F Blood Pressure: 115/52 Pulse: 63 Respirations: 11 Pulse Ox (%): 100 - Physical Exam General: Other (Intubated) HEENT: Atraumatic, PERRLA, EOMI Neck: Supple, JVD not distended Respiratory: Clear to auscultation bilaterally, Normal air movement Cardiovascular: Regular rate/rhythm, Normal S1 S2 Gastrointestinal: Normal bowel sounds, No tenderness Musculoskeletal: No tenderness Integumentary: No rashes Neurological: Normal speech, Normal tone, Normal affect Lymphatics: No axilla or inguinal lymphadenopathy - Studies Medications List Reviewed: Yes Assessment And Plan - Current Problems (Diagnosis) (1) Cardiac arrest Current Visit: Yes Status: Acute Plan: Patient is s/p coronary angiogram, PCI LAD and OM1 done, LPDA is occluded, most likely culprit, wire will not cross ASA 81 mg daily Brilinta 90 mg po BID patient had a hematoma the second day after procedure, checked area, look soft with no sign of hematoma, CT abdomen and pelvis with right groin hematoma, no retroperitoneal bleed. (2) Ventricular tachyarrhythmia Current Visit: Yes Status: Acute Plan: continue Amiodarone 200 mg po BID replace K to level more than 4 and Mg more than 2 continue to monitor on tele currently paced.
--- NOTE | 2024-12-07 09:36 | RAD REPORT ---
EXAM: Chest Single View HISTORY: 79 years Male ETT COMPARISON: 12/04/2024 FINDINGS: LUNGS/PLEURA: Low lung volumes. Right lower lobe consolidation. Possible small bilateral pleural effu sions.. CARDIAC/MEDIASTINUM: Mild cardiomegaly UPPER ABDOMEN: No significant abnormality. BONES: No acute abnormality. LINES/TUBES/OTHER: Pacemaker present. Endotracheal tube in satisfactory position at the lower margin of the aortic arch. PICC tip overlies the SVC. NG tube not well visualized due to underpenetration but in appropriate position on the CT from 12/05/2024. IMPRESSION: Similar right lower lobe consolidation. There is likely also some bilateral pleural fluid and associa mitul atelectasis. Support apparatus in satisfactory position.
[2024-12-07 10:06] LABS: Blood O2 Saturation 98.5 % (92.0-98.5)
--- NOTE | 2024-12-07 11:00 | P.PN ---
Subjective Date of Service: 12/07/24 Chief Complaint: Respiratory failure Patient is doing well no complaints he is has some hypoventilation tolerated the CPAP trial yesterday this morning he is alert responsive cooperative of his very low doses of vasopressors Review of Systems is unable to be obtained Physical Examination - Vital Signs Temperature: 97.5 F Blood Pressure: 125/55 Pulse: 60 Respirations: 13 Pulse Ox (%): 100 - Physical Exam General: Alert, Cooperative Respiratory: Clear to auscultation bilaterally Cardiovascular: No edema, Regular rate/rhythm, Normal S1 S2 - Studies Medications List Reviewed: Yes Assessment And Plan - Current Problems (Diagnosis) (1) Hypotension Current Visit: Yes Status: Acute Plan: Patient is on minimal doses of Levophed will plan to wean off hemoglobin has stabilized is up to 8 without any further blood transfusions Qualifiers: Hypotension type: postprocedural hypotension Qualified Code(s): I95.81 - Postprocedural hypotension (2) Respiratory failure Current Visit: Yes Status: Acute Plan: Patient is doing well he is alert responsive cooperative low respiratory rate blood gases reviewed oxygenation satisfactory he is not retaining CO2 patient has underlying mild metabolic acidosis I suspect is from his renal failure mild hyponatremia patient will be extubated today Qualifiers: Chronicity: acute
--- NOTE | 2024-12-07 11:24 | P.PN ---
Subjective Date of Service: 12/07/24 Chief Complaint: Respiratory failure No reported issues overnight. Patient tolerated spontaneous breathing trial and was extubated to oxygen by nasal cannula today. Blood pressure has been stable without Levophed. No recorded fever. Physical Examination - Vital Signs Temperature: 97.5 F Blood Pressure: 125/55 Pulse: 60 Respirations: 13 Pulse Ox (%): 100 - Studies Medications List Reviewed: Yes Assessment And Plan - Plan Physical examination General: Patient opening eyes to verbal, NAD HEENT: Oxygen by nasal cannula Neck: Supple Respiratory: Bilateral upper airway transmitted sounds, Normal air movement, no crackles. Cardiovascular: Heart sounds 1 and 2 normal, regular rhythm, no murmur. bilateral lower extremity pitting edema, right greater than left Gastrointestinal: Normal bowel sounds, No tenderness, no hepatosplenomegaly Integumentary: Hemosiderin staining bilateral legs. Bruise noted on the medial aspect of the right thigh. Neurological: Open eyes to verbal, vocalizes occasionally, obeys simple comma nds, moves all extremities spontaneously. 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 Bryan is following Status post cardiac catheterization, LAD and OM stented Status post Integrilin drip, Continue Plavix and Brilinta via NG tube. Wean of Levophed drip as tolerated PICC line in place Echocardiogram was nondiagnostic. Continue mechanical ventilatory, intermittent suctioning as needed. Anoxic encephalopathy Seizures 2 episodes of seizures reported. Neurology consulted, case discussed with Dr. Nath who recommended MRI of the brain, EEG. Patient started on IV Keppra(1 g IV loading dose followed by 500 mg twice a day) given 2 episodes of seizures. Prognostication pending MRI of the brain and EEG results. Patient is too unstable for MRI of the brain. Continue IV cefepime. CKD 4 Gentle IV fluids Nephrology Dr. Davies is following and assisting with management. Monitor chemistry daily Diabetes mellitus type 2 Every 6 hours Accu-Chek sliding scale insulin COPD As needed nebulizer treatments 12/05/2024 1. Acute blood loss anemia. Hemoglobin dropped from 10.2-7.2. Patient had hematoma in the right thigh at the entry site for cardiac catheterization. Transfuse 1 unit PRBC, monitor and transfuse as needed for hemoglobin less than 8. 2. Continue aspirin and Brilinta via NGT, statins via NG tube 3. Continue mechanical ventilation, may need to assess dependency on the vent with sedation vacation and breathing trials after Levophed drip has been weaned off. Bronchodilators as needed. 4. Continue Keppra for seizures. MRI of the brain pending extubation, EEG hopefully next week as anaesthetic technician is not available. Neurology Dr. Nath is following for prognostication. 5. Continue IV fluid for GAL. Patient given 250 mL bolus today. He received 1 L bolus yesterday. Monitor renal function. 6. Dietitian consult for tube feeding. Continue insulin sliding scale. 7. Continue to replace volume depletion as possible, wean off Levophed drip as tolerated 12/06/2024 1. Status post 1 unit PRBC transfusion for acute blood loss anemia secondary to hematoma. Patient plan for 2 more unit PRBC transfusion to keep his hemoglobin greater than 8. 2. Patient is needing aspirin and Brilinta for CAD with stents. Continue DAPT, hold subcutaneous heparin. 3. He is currently tolerating SIMV, off sedation and following commands per nursing report. Pulmonary is following for vent management. 4. MRI of the brain pending extubation, EEG planned for next week. Neurology is following. 5. Continue IV Keppra 6. Renal function is improving, urine output improved. Continue to monitor renal function. Nephrology is following 7. Start tube feeding with Jevity, insulin sliding scale 8. Continue to wean Levophed, continue isotonic fluid. 9. Blood culture: Negative. Continue empiric IV cefepime. 12/07/2024 1. Patient extubated to oxygen by nasal cannula today, respiratory rate low but patient has been maintaining 100% FiO2. 2. Continue oxygen via nasal cannula 3. Bedside swallow evaluation once patient is fully awake. 4. Renal function continue to improve. Continue IV fluid. Oral feeding once patient passed bedside swallow evaluation. Nephrology input appreciated. Continue to monitor renal function. 5. Blood culture grew Streptococcus species and E. coli. Unknown source. UA with culture ordered. continue empiric IV cefepime. 6. Nephrology to follow for hypernatremia management. Continue D5 NS for now. 7. Continue aspirin and Brilinta for CAD. 8. Continue amiodarone drip for cardiac arrest secondary to V-fib. DVT PPX: SCD Code status:full code
[2024-12-07 12:07] LABS: Sqamous Epithelial <5 /HPF (None Seen); Urine Crystals Unidentified Few /HPF (None Seen); Urine Culture Reflex Order REFLEXED; Urine Microscopic Reflex YN ORDER UMIC; Urine WBC Clump Rare /HPF (None Seen); Urine Yeast (Budding) Occasional /HPF (None Seen)
--- NOTE | 2024-12-07 12:13 | PN ---
Subjective: Remains intubated and at the time of extubation today, his creatinine is improving, sodi um up to 147. Tube feeding on hold. Continue D5 water. Objective: Vital Signs: Temperature 97.5, pulse rate 60, blood pressure 123/61. General: Intubated, morbidly obese, on vent support. Neck: Supple. No elevated JVD. Heart: Regular rate and rhythm. Normal S1, S2. Chest: Clear to auscultation bilaterally. No rales or wheezes. Abdomen: Soft and nontender. Extremities: Upper extremity edema. Laboratory Data: Sodium 148, potassium of 4, bicarb 20, BUN 42, creatinine 2.6. Assessment And Plan: This is an 79-year-old man with past medical history of diabetic chronic kidney disease who was admitted with pah-TL-[id number] elevation myocardial infarction and acute kidney injury . Currently, intubated. 1. Acute on chronic kidney disease, possibly due to ischemic acute tubular necrosis and cardiorenal s yndrome. Creatinine is improving. Currently, Lasix is on hold. and can resume diuretic in 1-2 days. Renally dose medication. Avoid NSAID, IV contrast. 2. Hypernatremia due to free water deficit. Currently, tube feeding on hold. Continue D5 water. 3. Idh-BY-ggtdoyy elevation myocardial infarction, status post cardiac catheterization, status post s tent placement. Continue medical treatment. 4. Diabetes mellitus. Continue insulin. 5. Cardiogenic shock. Continue possible extubation. Thanks for allowing us to participate in patient's care. Total time spent minutes includi ng documentation, reviewing labs, and placing orders. CARLOS/CHANI Voice ID: [id number] Report ID: [id number]
[2024-12-08 05:35] LABS: Absolute Lymphocytes (CBC) 0.2 K/uL (0.7-4.9); Hematocrit 23.8 % (39.6-49.0); Hemoglobin 7.8 g/dL (13.6-17.9); MCH 32.0 pg (27.0-35.0); MCHC 32.7 g/dL (32.0-36.0); MCV 97.6 fL (80-100); MPV 8.4 fL (7.6-11.3); Nucleated RBC Absolute Count 0.0 (0-0); Nucleated Red Blood Cells % 0.1 % (0-0); RBC Red Blood Cell Count 2.44 M/uL (4.33-5.43); White Blood Count 6.70 thou/uL (4.3-10.9)
[2024-12-08 05:41] LABS: ALT/SGPT 18.0 U/L (16-61); AST/SGOT 17.0 U/L (15-37); Albumin 2.2 g/dL (3.4-5.0); Albumin/Globulin Ratio 0.8 (1.1-1.8); Alkaline Phosphatase 65.0 U/L (45-117); Anion Gap 10.8 mEq/L (5.0-15.0); BUN Blood Urea Nitrogen 35.0 mg/dL (7-18); Globulin 2.9 g/dL (2.3-3.5); Glucose Level 372.0 mg/dL (74-106); Magnesium 2.5 mg/dL (1.6-2.4); Potassium 3.8 mEq/L (3.5-5.1)
--- NOTE | 2024-12-08 07:36 | RAD REPORT ---
Procedure: Chest Single View HISTORY: Endotracheal tube removal COMPARISON: December 07, 2024 FINDINGS: Endotracheal tube has been removed. Right lower lobe consolidation unchanged. Right pleural effusion. Mild left lung opacities. Cardiomegaly persists. Pacemaker leads in place The heart is enlarged IMPRESSION: Endotracheal tube has been removed. No significant change in right basilar elevation which may represent atelectasis or pneumonia
--- NOTE | 2024-12-08 07:40 | RAD REPORT ---
Exam:Abdomen 1 View (KUB) Clinical history: Dobbhoff tube placement FINDINGS: A Dobbhoff tube has been inserted into the mid stomach. It appears to make a 90 degree turn within th e stomach. The tip of the tube to the left
--- NOTE | 2024-12-08 12:11 | RAD REPORT ---
Exam:Abdomen 1 View (KUB) Clinical history: Dobbhoff tube placement FINDINGS: Postsurgical changes involve the stomach. The tip of the tube lies a couple centimeters distal to the esophagus into the abdomen. It could lie either within the residual stomach or proximal small bowel
--- NOTE | 2024-12-08 12:43 | RAD REPORT ---
Exam:Abdomen 1 View (KUB) Clinical history: Dobbhoff tube placement FINDINGS: Patient has partial gastrectomy with minimal residual stomach. Most likely the tip of the Dobbhoff tu be lies within the proximal jejunum near the anastomotic site with the stomach
[2024-12-08] MEDS ORDERED: VITAL HP 1,000 ML BOT RTH SCH (13:00)
--- NOTE | 2024-12-08 13:07 | P.PN ---
Subjective Date of Service: 12/08/24 Chief Complaint: Respiratory failure Patient extubated to oxygen by nasal cannula yesterday. Patient remains somnolent. He has been normotensive off Levophed No recorded fever. No reported seizures. Physical Examination - Vital Signs Temperature: 99.1 F Blood Pressure: 127/52 Pulse: 60 Respirations: 14 Pulse Ox (%): 100 - Studies Medications List Reviewed: Yes Assessment And Plan - Plan Physical examination General: Somnolent. NAD HEENT: Oxygen by nasal cannula, Dobhoff in place Neck: Supple Respiratory: Bilateral upper airway transmitted sounds, Normal air movement, no crackles. Cardiovascular: Heart sounds 1 and 2 normal, regular rhythm, no murmur. bilateral lower extremity pitting edema, right greater than left Gastrointestinal: Normal bowel sounds, No tenderness, no hepatosplenomegaly Integumentary: Mild bruise noted on the medial aspect of the right thigh. Neurological: Open eyes to verbal, vocalizes occasionally, obeys simple commands, moves all extremities spontaneously. 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 Bryan is following Status post cardiac catheterization, LAD and OM stented Status post Integrilin drip, Continue Plavix and Brilinta via NG tube. Wean of Levophed drip as tolerated PICC line in place Echocardiogram was nondiagnostic. Continue mechanical ventilatory, intermittent suctioning as needed. Anoxic encephalopathy Seizures 2 episodes of seizures reported. Neurology consulted, case discussed with Dr. Nath who recommended MRI of the brain, EEG. Patient started on IV Keppra(1 g IV loading dose followed by 500 mg twice a day) given 2 episodes of seizures. Prognostication pending MRI of the brain and EEG results. Patient is too unstable for MRI of the brain. Continue IV cefepime. CKD 4 Gentle IV fluids Nephrology Dr. Davies is following and assisting with management. Monitor chemistry daily Diabetes mellitus type 2 Every 6 hours Accu-Chek sliding scale insulin COPD As needed nebulizer treatments 12/05/2024 1. Acute blood loss anemia. Hemoglobin dropped from 10.2-7.2. Patient had hematoma in the right thigh at the entry site for cardiac catheterization. Transfuse 1 unit PRBC, monitor and transfuse as needed for hemoglobin less than 8. 2. Continue aspirin and Brilinta via NGT, statins via NG tube 3. Continue mechanical ventilation, may need to assess dependency on the vent with sedation vacation and breathing trials after Levophed drip has been weaned off. Bronchodilators as needed. 4. Continue Keppra for seizures. MRI of the brain pending extubation, EEG hopefully next week as sleep technologist is not available. Neurology Dr. Nath is following for prognostication. 5. Continue IV fluid for GAL. Patient given 250 mL bolus today. He received 1 L bolus yesterday. Monitor renal function. 6. Dietitian consult for tube feeding. Continue insulin sliding scale. 7. Continue to replace volume depletion as possible, wean off Levophed drip as tolerated 12/06/2024 1. Status post 1 unit PRBC transfusion for acute blood loss anemia secondary to hematoma. Patient plan for 2 more unit PRBC transfusion to keep his hemoglobin greater than 8. 2. Patient is needing aspirin and Brilinta for CAD with stents. Continue DAPT, hold subcutaneous heparin. 3. He is currently tolerating SIMV, off sedation and following commands per nursing report. Pulmonary is following for vent management. 4. MRI of the brain pending extubation, EEG planned for next week. Neurology is following. 5. Continue IV Keppra 6. Renal function is improving, urine output improved. Continue to monitor renal function. Nephrology is following 7. Start tube feeding with Jevity, insulin sliding scale 8. Continue to wean Levophed, continue isotonic fluid. 9. Blood culture: Negative. Continue empiric IV cefepime. 12/07/2024 1. Patient extubated to oxygen by nasal cannula today, respiratory rate low but patient has been maintaining 100% FiO2. 2. Continue oxygen via nasal cannula 3. Bedside swallow evaluation once patient is fully awake. 4. Renal function continue to improve. Continue IV fluid. Oral feeding once patient passed bedside swallow evaluation. Nephrology input appreciated. Continue to monitor renal function. 5. Blood culture grew Streptococcus species and E. coli. Unknown source. UA with culture ordered. continue empiric IV cefepime. 6. Nephrology to follow for hypernatremia management. Continue D5 NS for now. 7. Continue aspirin and Brilinta for CAD. 8. Continue amiodarone drip for cardiac arrest secondary to V-fib. 12/08/2024 1. Patient is tolerating oxygen by nasal cannula 2. Swallow evaluation by speech therapy is pending. Dobbhoff inserted for oral medications and Jevity feeding. Patient started on Jevity feeding 3. Patient has a pacemaker and not able to perform MRI of the brain here, EEG ordered per neurology recommendation. [address] head without contrast if patient cannot undergo MRI during 4. Continue IV Keppra. Dose decreased to 250 mg twice daily to see if his somnolence improve after discussion with Dr. Nath. 5. Tube feeding: Free water flushes and IV fluid for GAL. Continue to monitor renal function. Nephrology is following. 6. Continue aspirin and Brilinta for CAD for now. 7. Continue amiodarone via NG tube. 8. Neurochecks and monitoring for prognostication. DVT PPX: SCD Code status:full code
--- NOTE | 2024-12-08 18:23 | PN ---
Date of Progress Note: 12/08/2024 Chief Complaint: Acute kidney injury. Subjective: The patient remains in ICU. His serum creatinine is gradually improving. The patient w as found to have hypernatremia and IV fluids were adjusted. The patient is on D5 water and tube feed ing is on hold. Review of Systems: Cannot be obtained due to the patient's condition. Physical Examination: Neck: Supple. Heart: S1, S2. Chest: Clear to auscultation bilaterally. No wheezing. Abdomen: Soft, obese. Extremities: Upper extremity edema. Assessment And Plan: 1. The patient is an 79-year-old man with past medical history of diabetic chronic kidney disease, wh o was admitted with bww-EF-loholobrb myocardial infarction and acute kidney injury. The patient was intubated. He has nonoliguric urine output. Renal function is gradually improving, although, BUN is 242 with creatinine 2.6 over last 48 hours. There is acute on chronic kidney injury. The acute com ponent is due to ischemic acute tubular necrosis and cardiorenal syndrome. The patient was taking La six and this is on hold. Continue renally dosed medication. Avoid IV contrast and avoid nonsteroida l anti-inflammatory medication. 2. Hypernatremia. Free water deficit and the patient is on D5W. Monitor closely renal panel. 3. Sxz-NK-mbademrew myocardial infarction, status post cardiac catheterization, status post stent patricia cement. Continue medical treatment. 4. Diabetes mellitus with renal manifestation, continue insulin. 5. Cardiogenic shock. The patient was intubated. Further recommendation from primary team. BOB/CHANI Voice ID: [id number] Report ID: [id number]
[2024-12-08] MEDS: levETIRAcetam 250 MG in NA CHLORIDE 0.9% 100 ML IV SCH (20:16)
--- NOTE | 2024-12-08 21:53 | RAD REPORT ---
EXAMINATION: Head Brain Wo Cont CLINICAL INDICATION: Male, 79 years old.Follow up seizures TECHNIQUE: Axial CT images from the skull base to the vertex without intravenous contrast. Coronal an d sagittal reformatted images were created from the data set. One or more of the following dose reduction techniques were used: Automated exposure control, adjustment of the mA and/or kV according to patient size, and/or iterative reconstruction. Unless otherwise specified, incidental findings do not require dedicated imaging follow-up. [id number]. COMPARISON: 12/04/2024 FINDINGS: INTRACRANIAL: No acute intracranial hemorrhage. No acute large vascular territory infarct. No hydroce phalus. No mass effect or midline shift. Moderate chronic small vessel ischemic changes.Mild cerebral atrophy. VASCULATURE: No visualized abnormalities in the arteries or dural venous sinuses. SCALP/SKULL: No calvarial fracture identified. No acute soft tissue abnormality. SINUSES: The visualized paranasal sinuses are mostly clear. No significant mastoid fluid. IMPRESSION: No acute intracranial abnormality.
[2024-12-09 06:33] LABS: Absolute Lymphocytes (CBC) 0.3 K/uL (0.7-4.9); Hematocrit 26.0 % (39.6-49.0); Hemoglobin 8.5 g/dL (13.6-17.9); MCH 32.0 pg (27.0-35.0); MCHC 32.8 g/dL (32.0-36.0); MCV 97.6 fL (80-100); MPV 8.8 fL (7.6-11.3); Nucleated RBC Absolute Count 0.0 (0-0); Nucleated Red Blood Cells % 0.1 % (0-0); RBC Red Blood Cell Count 2.66 M/uL (4.33-5.43); White Blood Count 8.30 thou/uL (4.3-10.9)
[2024-12-09 06:56] LABS: ALT/SGPT 20.0 U/L (16-61); AST/SGOT 26.0 U/L (15-37); Albumin 2.5 g/dL (3.4-5.0); Albumin/Globulin Ratio 0.8 (1.1-1.8); Alkaline Phosphatase 73.0 U/L (45-117); Anion Gap 8.2 mEq/L (5.0-15.0); BUN Blood Urea Nitrogen 34.0 mg/dL (7-18); Globulin 3.3 g/dL (2.3-3.5); Glucose Level 140.0 mg/dL (74-106); Magnesium 2.5 mg/dL (1.6-2.4); Potassium 4.2 mEq/L (3.5-5.1)
--- NOTE | 2024-12-09 09:37 | P.PN ---
Date of Service: 12/09/24 Subjective: slept well overnight no new issues vitals stable Physical Exam: Gen: Somnolent, NAD, alert, follows simple commands CV: Regular rate and rhythm, bilateral lower extremity pitting edema Pulm: Nonlabored respirations on 1L NC Abdomen: Soft, nontender, nondistended Neuro: Open eyes to verbal, vocalizes occasionally, obeys simple commands, moves all extremities spontaneously Dobhoff in place Problem List: V-fib arrest with ROSC NSTEMI Cardiogenic shock CAD s/p PCI x2 (12/05/24) Acute hypoxic respiratory failure History of CHF-pacemaker in place ?Bacteremia vs contamination; unknown source Acute blood loss anemia Anoxic encephalopathy Seizures CKD4 NIDDM2 Chronic COPD V-fib arrest with ROSC NSTEMI Cardiogenic shock CAD s/p PCI x2 (12/05/24) Acute hypoxic respiratory failure 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 Bryan. PCI LAD and OM1 done, LPDA is occluded, most likely culprit, wire will not cross s/p Integrilin drip Continue asa 81mg, brilinta, amiodarone Extubated to [place] on 12/07. Dobhoff placed 12/08 and started on tube feeds. Speech/Architectural Superintendent consults. NPO until eval by speech. PICC line in place ?Bacteremia vs contamination; unknown source Blood cultures with 2 different results 1 bottle grew E. coli, the other Streptococcus Infantarius urine culture is pending Previously on IV cefepime 12/03-12/05 Stable off abx. No leukocytosis/fever Acute blood loss anemia Hgb dropped 10.2 -> 7.2 on 12/05. Patient had hematoma in the right thigh at entry site of LHC. CT abdomen/pelvis (12/05): right groin hematoma, no retroperitoneal bleed s/p 3uPRBC (12/05-12/06) Monitor hgb closely Anoxic encephalopathy Seizures 2 episodes of seizures reported. Neurology consulted, case discussed with Dr. Nath who recommended MRI of the brain, EEG. MRI cannot be done due to PPM device. Neuro recommended CT without contrast if cant do MRI which was negative. Continue IV Keppra; decreased dose 12/08 given increased somnolence increased back to 500mg BID on 12/09 - per DR. Nath. Seizure activity / status noted on EEG from 12/08 Monitor closely Hypernatremia CKD4 Cr improved compared to admission. Stable. Continue to monitor renal function, electrolytes Continue IV fluids NIDDM2 accu-cheks, SSI VTE: SCD Code: DNR Continue ICU level of care
--- NOTE | 2024-12-09 09:49 | P.PN ---
Date of Service: 12/09/24 79-year-old gentleman. All the information has been obtained from the record as the patient being intubated. The patient well known to me from the office, last seen back in November 12, 2024. 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 The patient chronic kidney disease, as I mentioned secondary to solitary kidney, baseline creatinine 3, GFR of 17 as of November 2024. Apparently, the patient came to the hospital complaining from atrial fibrillation with RVR. The patient had cardiac arrest. CPR was initiated. The patient was cardioverted, received Levophed, then weaned from Levophed. The patient had cardiac cath today and 2 stents were placed. Levophed was resumed. The patient had good urine output of 950 in the last 24 hours Patient's status post cardiac cath developed cardiogenic shock/hypovolemic shock secondary to hematoma on the site of cannulation patient did well intubated then extubated pressor has weaned off patient continues to have good urine output kidney function improved Physical Examination: Temp Pulse Resp BP Pulse Ox 97 F 64 17 133/99 H 98 12/09/24 01:00 12/09/24 06:00 12/09/24 06:00 12/09/24 06:00 12/09/24 06:00 Patient on vent FiO2 30% saturating above 96% Chest: Faint rales bilateral. Heart: S1, S2 systolic murmur. Abdomen: Soft, nontender. Extremities: +1 edema. Hematoma on the right groin Neurologic: The patient awake follow-up simple command no focality Laboratory Last Values WBC 4.80 thou/uL (4.3-10.9) 12/02/24 10:17 RBC 3.31 M/uL (4.33-5.43) L 12/02/24 10:17 Hgb 11.0 g/dL (13.6-17.9) L 12/02/24 10:17 Hct 33.9 % (39.6-49.0) L 12/02/24 10:17 MCV 102.6 fL (80-100) H 12/02/24 10:17 MCH 33.1 pg (27.0-35.0) 12/02/24 10:17 MCHC 32.3 g/dL (32.0-36.0) 12/02/24 10:17 RDW 15.1 % (12.1-15.2) 12/02/24 10:17 Plt Count 156 thou/uL (152-406) 12/02/24 10:17 MPV 8.4 fL (7.6-11.3) 12/02/24 10:17 Neutrophils % 61.6 % (41.7-73.7) 12/02/24 10:17 Lymphocytes % 23.3 % (15.3-44.8) 12/02/24 10:17 Monocytes % 8.9 % (3.3-12.3) 12/02/24 10:17 Eosinophils % 5.2 % (0-4.4) H 12/02/24 10:17 Basophils % 1.0 % (0-1.3) 12/02/24 10:17 Absolute Neutrophils 2.9 K/uL (1.8-8.0) 12/02/24 10:17 Absolute Lymphocytes 1.1 K/uL (0.7-4.9) 12/02/24 10:17 Absolute Monocytes 0.4 K/uL (0.1-1.3) 12/02/24 10:17 Absolute Eosinophils 0.2 K/uL (0-0.5) 12/02/24 10:17 Absolute Basophils 0.0 K/uL (0-0.5) 12/02/24 10:17 PT 13.6 SECONDS (10-13.0) H 12/02/24 10:17 INR 1.21 12/02/24 10:17 pH 7.20 (7.35-7.45) L* 12/02/24 10:18 pCO2 49 mmHg (35-45) H 12/02/24 10:18 pO2 316 mmHg (75-100) H 12/02/24 10:18 HCO3 19.5 mmol/L (22.0-28.0) L 12/02/24 10:18 Base Excess -8.5 mmol/L (-2.0-3.0) L 12/02/24 10:18 Oxyhemoglobin 97.4 % (94.0-97.0) H 12/02/24 10:18 ABG O2 Sat (Measured) 99.9 % (92.0-98.5) H 12/02/24 10:18 ABG Carboxyhemoglobin 0.9 % (0.0-1.5) 12/02/24 10:18 ABG Methemoglobin 1.1 % (0.0-1.5) 12/02/24 10:18 Other Total Hgb 10.4 g/dL (12.0-18.0) L 12/02/24 10:18 Inspired O2 100.0 % 12/02/24 10:18 Sodium 143 mEq/L (136-145) 12/02/24 10:17 Potassium 3.8 mEq/L (3.5-5.1) 12/02/24 10:17 Chloride 113 mEq/L (98-107) H 12/02/24 10:17 Carbon Dioxide 21 mEq/L (21-32) 12/02/24 10:17 Anion Gap 12.8 mEq/L (5.0-15.0) 12/02/24 10:17 BUN 55 mg/dL (7-18) H 12/02/24 10:17 Creatinine 3.40 mg/dL (0.70-1.30) H 12/02/24 10:17 Est GFR (CKD-EPI) 18 ml/min (=/>90) L 12/02/24 10:17 Glucose 181 mg/dL (74-106) H 12/02/24 10:17 Calcium 8.4 mg/dL (8.5-10.1) L 12/02/24 10:17 Magnesium 2.5 mg/dL (1.6-2.4) H 12/02/24 10:17 Total Bilirubin 0.5 mg/dL (0.2-1.0) 12/02/24 10:17 Direct Bilirubin 0.3 mg/dL (0-0.2) H 12/02/24 10:17 Indirect Bilirubin 0.2 mg/dL (0.2-0.8) 12/02/24 10:17 AST 96 U/L (15-37) H 12/02/24 10:17 ALT 59 U/L (16-61) 12/02/24 10:17 Alkaline Phosphatase 104 U/L (45-117) 12/02/24 10:17 Troponin I High Sens 372.6 pg/mL (<58.9) H* 12/02/24 10:17 NT-Pro-B Natriuret Pep 2413 pg/mL (<450) H 12/02/24 10:17 Serum Total Protein 6.6 g/dL (6.4-8.2) 12/02/24 10:17 Albumin 3.1 g/dL (3.4-5.0) L 12/02/24 10:17 Globulin 3.5 g/dL (2.3-3.5) 12/02/24 10:17 Albumin/Globulin Ratio 0.9 (1.1-1.8) L 12/02/24 10:17 Amiodarone HCl (Amiodarone Hcl 200 Mg Tab) 200 mg PO BID INGRID Last Admin: 12/08/24 20:15 Dose: 200 mg Aspirin (Aspirin 81 Mg Chewable Tablet) 81 mg PO DAILY INGRID Last Admin: 12/08/24 08:32 Dose: 81 mg Fentanyl Citrate (Fentanyl Citr 100 Mcg/2 Ml) 25 mcg IV Q4HP PRN PRN Reason: Pain scale 8-10 (Severe) Last Admin: 12/07/24 05:00 Dose: 25 mcg Dexmedetomidine HCl 1,000 mcg/ (Sodium Chloride) 500 mls @ 12.07 mls/hr IV TITR INGRID; Protocol Last Titration: 12/07/24 08:00 Dose: 0 mcg/kg/hr, 0 mls/hr Norepinephrine Bitartrate 16 (mg/ Dextrose) 266 mls @ 12.04 mls/hr IV TITR INGRID; Protocol Last Titration: 12/07/24 10:45 Dose: 0 mcg/kg/min, 0 mls/hr Dextrose/Sodium Chloride (D5w Ns 1-Liter Bag) 1,000 mls @ 50 mls/hr IV .Q20H INGRID Last Admin: 12/09/24 00:53 Dose: 1,000 mls Levetiracetam 250 mg/ Sodium (Chloride) 102.5 mls @ 410 mls/hr IV Q12HR INGRID Last Admin: 12/08/24 20:16 Dose: 102.5 mls Midazolam HCl (Midazolam Hcl 2 Mg/2 Ml Inj) 2 mg IV Q2HP PRN PRN Reason: Sedation-Propofol not effect Nutritional Formula (Vital Hp 1,000 Ml Bot) 0 ml RTH CONT INGRID Sodium Chloride (Sodium Chloride 0.9% 10ml Inj) 10 ml IV UD PRN PRN Reason: Diluant Ticagrelor (Ticagrelor 90 Mg Tablet) 90 mg PO BID INGRID Last Admin: 12/08/24 20:15 Dose: 90 mg Assessment And Plan: 1. Acute kidney injury on advanced chronic kidney disease secondary to cardiorenal, secondary to atrial fibrillation, cardiac arrest, poor perfusion ATN, nonoliguric, /contrast-induced nephropathy back to baseline over volume Resume Lasix 40 mg daily Hold IV fluid we will follow up the patient closely. Do not see the need for renal replacement therapy for the time being 2. Hypertension, currently low blood pressure patient on Levophed : . Resume Lasix Keep hold SMILEY inhibitor or ARB for the time being. Will bolus the patient with 500 normal saline continue IV hydration 3. Atrial fibrillation with RVR with cardiac arrest. Asked by Cardiology, continue on anticoagulation. 4. CAD non-ST elevation GA complicated with congestive heart failure with exacerbation. Currently, the patient on vent. The patient had cardiac cath with contrast with advanced kidney disease. I am going to hold the diuresis for this 24 hour. We will plan to resume it tomorrow and we will follow up the patient. 5. Diabetes, as by primary. 6. Acidosis, non-anion gap metabolic acidosis secondary to poor perfusion. I do not see the need for any bicarb. 7. Hypernatremia. No need for treatment. The patient currently on IV fluid. We will follow up. 8-cardiogenic shock/hypovolemic shock secondary to inguinal hematoma complicated with target organ damage including acute kidney injury secondary to ATN off of pressor currently recover: Of fluid resuscitation Resume Lasix as above 9-chronic kidney disease stage IV secondary to renal mass loss solitary kidney status post acute kidney injury recover back to baseline over volume Resume Lasix 40 mg daily 10-local bleed from cath continue as needed transfusion Will monitor the patient Thank you for allowing us to participate in the care of your patient. Time spent evaluating the patient, [id number] reviewing data lab and the radiology placing order documentation in the chart discussing the case with the prepared foods production team member including ICU staff and hospitalist more than 55 minutes
[2024-12-09] MEDS: FUROSEMIDE 40 MG/4 ML VIAL IV SCH (10:01)
--- NOTE | 2024-12-09 11:15 | P.PN ---
Subjective Date of Service: 12/09/24 Chief Complaint: Respiratory failure Subjective: No new changes, No C/O voiced Review of Systems 10-point ROS is otherwise unremarkable Physical Examination - Vital Signs Temperature: 97 F Blood Pressure: 157/92 Pulse: 60 Respirations: 17 Pulse Ox (%): 98 - Physical Exam General: Alert, In no apparent distress HEENT: Atraumatic, PERRLA, EOMI Neck: Supple, JVD not distended Respiratory: Clear to auscultation bilaterally, Normal air movement Cardiovascular: Regular rate/rhythm, Normal S1 S2 Gastrointestinal: Normal bowel sounds, No tenderness Musculoskeletal: No tenderness Integumentary: No rashes Neurological: Normal speech, Normal tone, Normal affect Lymphatics: No axilla or inguinal lymphadenopathy - Studies Medications List Reviewed: Yes Assessment And Plan - Current Problems (Diagnosis) (1) Cardiac arrest Current Visit: Yes Status: Acute Plan: Patient is s/p coronary angiogram, PCI LAD and OM1 done, LPDA is occluded, most likely culprit, wire will not cross ASA 81 mg daily Brilinta 90 mg po BID patient had a hematoma the second day after procedure, checked area, look soft with no sign of hematoma, CT abdomen and pelvis with right groin hematoma, no retroperitoneal bleed. (2) Ventricular tachyarrhythmia Current Visit: Yes Status: Acute Plan: continue Amiodarone 200 mg po BID replace K to level more than 4 and Mg more than 2 continue to monitor on tele currently paced.
--- NOTE | 2024-12-09 14:18 | EEG ---
CHART: [id number] TEST ID#: [id number] DATE OF STUDY: 12/08/2024 THE EEG WAS RECORDED PORTABLE IN THE ICU ON A 17 CHANNEL MACHINE. ELECTRODES WERE APPLIED IN THE USUAL MANNER USING THE INTERNATIONAL 10-20 SYSTEM. THE WAKING BACKGROUND RHYTHM IN THIS RECORD CONSISTS OF POORLY DEVELOPED AND POORLY ORGANIZED WAVES OF 6 HZ., IN A WIDE DISTRIBUTION WHICH ATTENUATE NORMALLY WITH EYE OPENING. THERE IS A FOCUS OF CONTINUOUS SPIKE AND WAVE DISCHARGES IN THE RIGHT CENTRAL REGION RANGING 1.5-3 HZ. AT TIMES THIS ACTIVITY SPREADS TO THE LEFT HEMISPHERE. THERE ARE NO FOCAL OR LATERALIZING FEATURES. NO EPILEPTIFORM ACTIVITY APPEARS. SLEEP DID NOT OCCUR. HYPERVENTILATION WAS NOT PERFORMED. PHOTIC STIMULATION PRODUCED NO DRIVING BILATERALLY. IMPRESSION: THIS IS A MARKEDLY ABNORMAL AWAKE EEG DUE TO CONTINUOUS RIGHT MORE THAN LEFT CENTRAL SPIKE AND WAVE DISCHARGES RANGING 1.5-3 HZ. THIS ACTIVITY IS CONSISTENT WITH STATUS EPILEPTICUS. ANTIEPILEPTIC MEDICATION ADJUSTMENT MAY BE INDICATED.
[2024-12-09] MEDS: levETIRAcetam 500 MG in NA CHLORIDE 0.9% 100 ML IV SCH (20:31)
[2024-12-10 05:10] LABS: Absolute Lymphocytes (CBC) 0.4 K/uL (0.7-4.9); Hematocrit 27.5 % (39.6-49.0); Hemoglobin 9.0 g/dL (13.6-17.9); MCH 31.8 pg (27.0-35.0); MCHC 32.6 g/dL (32.0-36.0); MCV 97.4 fL (80-100); MPV 8.8 fL (7.6-11.3); Nucleated RBC Absolute Count 0.0 (0-0); Nucleated Red Blood Cells % 0.2 % (0-0); RBC Red Blood Cell Count 2.82 M/uL (4.33-5.43); White Blood Count 8.20 thou/uL (4.3-10.9)
[2024-12-10 05:31] LABS: ALT/SGPT 21.0 U/L (16-61); AST/SGOT 17.0 U/L (15-37); Albumin 2.6 g/dL (3.4-5.0); Albumin/Globulin Ratio 0.8 (1.1-1.8); Alkaline Phosphatase 80.0 U/L (45-117); Anion Gap 8.1 mEq/L (5.0-15.0); BUN Blood Urea Nitrogen 42.0 mg/dL (7-18); Globulin 3.4 g/dL (2.3-3.5); Glucose Level 144.0 mg/dL (74-106); Magnesium 2.6 mg/dL (1.6-2.4); Potassium 4.1 mEq/L (3.5-5.1)
--- NOTE | 2024-12-10 08:20 | P.PN ---
Date of Service: 12/10/24 Subjective: More awake/alert today Responding to questions appropriately with soft speech doesn't recall events leading to hospitalization Physical Exam: Gen: More awake/alert, responding to questions with soft speech CV: Regular rate and rhythm, bilateral lower extremity pitting edema Pulm: Nonlabored respirations on 1L NC Abdomen: Soft, nontender, nondistended Neuro: Open eyes to verbal, vocalizes occasionally, obeys simple commands, moves all extremities spontaneously Dobhoff in place, PICC line in place Problem List: V-fib arrest with ROSC NSTEMI Cardiogenic shock CAD s/p PCI x2 (12/05/24) Acute hypoxic respiratory failure History of CHF-pacemaker in place ?Bacteremia vs contamination; unknown source Acute blood loss anemia Anoxic encephalopathy Seizures CKD4 NIDDM2 Chronic COPD V-fib arrest with ROSC NSTEMI Cardiogenic shock CAD s/p PCI x2 (12/05/24) Acute hypoxic respiratory failure 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 Bryan. PCI LAD and OM1 done, LPDA is occluded, most likely culprit, wire will not cross s/p Integrilin drip Continue asa 81mg, brilinta, amiodarone Extubated to [place] on 12/07. Dobhoff placed 12/08 and started on tube feeds. Speech/Chief Operating Officer consults. Speech recommended NPO yesterday due to risk of aspiration, minimal responsiveness re-eval later today given increased alertness. ?Bacteremia vs contamination; unknown source Blood cultures with 2 different results 1 bottle grew E. coli, the other Streptococcus Infantarius urine culture is pending Previously on IV cefepime 12/03-12/05 Stable off abx. No leukocytosis/fever Acute blood loss anemia Hgb dropped 10.2 -> 7.2 on 12/05. Patient had hematoma in the right thigh at entry site of C. CT abdomen/pelvis (12/05): right groin hematoma, no retroperitoneal bleed s/p 3uPRBC (12/05-12/06) Monitor hgb closely Anoxic encephalopathy Seizures 2 episodes of seizures reported. Neurology consulted, case discussed with Dr. Nath who recommended MRI of the brain, EEG. MRI cannot be done due to PPM device. Neuro recommended CT without contrast if cant do MRI which was negative. Continue IV Keppra; increased back to 500mg BID on 12/09 - per DR. Nath. Seizure activity / status noted on EEG from 12/08 Monitor closely Hypernatremia CKD4 Cr improved compared to admission. Stable. Continue to monitor renal function, electrolytes Continue IV fluids NIDDM2 accu-cheks, SSI VTE: SCD Code: DNR Continue ICU level of care
--- NOTE | 2024-12-10 09:50 | P.PN ---
Date of Service: 12/10/24 79-year-old gentleman. All the information has been obtained from the record as the patient being intubated. The patient well known to me from the office, last seen back in November 12, 2024. 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 The patient chronic kidney disease, as I mentioned secondary to solitary kidney, baseline creatinine 3, GFR of 17 as of November 2024. Apparently, the patient came to the hospital complaining from atrial fibrillation with RVR. The patient had cardiac arrest. CPR was initiated. The patient was cardioverted, received Levophed, then weaned from Levophed. The patient had cardiac cath today and 2 stents were placed. Levophed was resumed. The patient had good urine output of 950 in the last 24 hours Patient's status post cardiac cath developed cardiogenic shock/hypovolemic shock secondary to hematoma on the site of cannulation patient did well intubated then extubated pressor has weaned off patient continues to have good urine output kidney function improved Physical Examination: Temp Pulse Resp BP Pulse Ox 98 F 62 18 143/71 H 100 12/10/24 00:00 12/10/24 08:27 12/10/24 07:00 12/10/24 08:27 12/10/24 07:00 Patient on vent FiO2 30% saturating above 96% Chest: Faint rales bilateral. Heart: S1, S2 systolic murmur. Abdomen: Soft, nontender. Extremities: +1 edema. Hematoma on the right groin Neurologic: The patient awake follow-up simple command no focality still con fused Amiodarone HCl (Amiodarone Hcl 200 Mg Tab) 200 mg PO BID [facility] Last Admin: 12/10/24 08:27 Dose: 200 mg Aspirin (Aspirin 81 Mg Chewable Tablet) 81 mg PO DAILY [facility] Last Admin: 12/10/24: Dose: 81 mg Fentanyl Citrate (Fentanyl Citr 100 Mcg/2 Ml) 25 mcg IV Q4HP PRN PRN Reason: Pain scale 8-10 (Severe) Last Admin: 12/07/24 05:00 Dose: 25 mcg Furosemide (Furosemide 40 Mg/4 Ml Vial) 40 mg IV DAILY [facility] Last Admin: 12/10/24 08: Dose: 40 mg Dexmedetomidine HCl 1,000 mcg/ (Sodium Chloride) 500 mls @ 12.07 mls/hr IV TITR [facility]; Protocol Last Titration: 12/07/24 08:00 Dose: 0 mcg/kg/hr, 0 mls/hr Norepinephrine Bitartrate 16 (mg/ Dextrose) 266 mls @ 12.04 mls/hr IV TITR [facility]; Protocol Last Titration: 12/07/24 10:45 Dose: 0 mcg/kg/min, 0 mls/hr Levetiracetam 500 mg/ Sodium (Chloride) 105 mls @ 420 mls/hr IV BID [facility] Last Admin: 12/10/24 08:27 Dose: 105 mls Midazolam HCl (Midazolam Hcl 2 Mg/2 Ml Inj) 2 mg IV Q2HP PRN PRN Reason: Sedation-Propofol not effect Nutritional Formula (Vital Hp 1,000 Ml Bot) 0 ml RTH CONT INGRID Sodium Chloride (Sodium Chloride 0.9% 10ml Inj) 10 ml IV UD PRN PRN Reason: Diluant Ticagrelor (Ticagrelor 90 Mg Tablet) 90 mg PO BID [facility] Last Admin: 12/10/24 08:26 Dose: 90 mg Laboratory Last Values WBC 4.80 thou/uL (4.3-10.9) 12/02/24 10:17 RBC 3.31 M/uL (4.33-5.43) L 12/02/24 10:17 Hgb 11.0 g/dL (13.6-17.9) L 12/02/24 10:17 Hct 33.9 % (39.6-49.0) L 12/02/24 10:17 MCV 102.6 fL (80-100) H 12/02/24 10:17 MCH 33.1 pg (27.0-35.0) 12/02/24 10:17 MCHC 32.3 g/dL (32.0-36.0) 12/02/24 10:17 RDW 15.1 % (12.1-15.2) 12/02/24 10:17 Plt Count 156 thou/uL (152-406) 12/02/24 10:17 MPV 8.4 fL (7.6-11.3) 12/02/24 10:17 Neutrophils % 61.6 % (41.7-73.7) 12/02/24 10:17 Lymphocytes % 23.3 % (15.3-44.8) 12/02/24 10:17 Monocytes % 8.9 % (3.3-12.3) 12/02/24 10:17 Eosinophils % 5.2 % (0-4.4) H 12/02/24 10:17 Basophils % 1.0 % (0-1.3) 12/02/24 10:17 Absolute Neutrophils 2.9 K/uL (1.8-8.0) 12/02/24 10:17 Absolute Lymphocytes 1.1 K/uL (0.7-4.9) 12/02/24 10:17 Absolute Monocytes 0.4 K/uL (0.1-1.3) 12/02/24 10:17 Absolute Eosinophils 0.2 K/uL (0-0.5) 12/02/24 10:17 Absolute Basophils 0.0 K/uL (0-0.5) 12/02/24 10:17 PT 13.6 SECONDS (10-13.0) H 12/02/24 10:17 INR 1.21 12/02/24 10:17 pH 7.20 (7.35-7.45) L* 12/02/24 10:18 pCO2 49 mmHg (35-45) H 12/02/24 10:18 pO2 316 mmHg (75-100) H 12/02/24 10:18 HCO3 19.5 mmol/L (22.0-28.0) L 12/02/24 10:18 Base Excess -8.5 mmol/L (-2.0-3.0) L 12/02/24 10:18 Oxyhemoglobin 97.4 % (94.0-97.0) H 12/02/24 10:18 ABG O2 Sat (Measured) 99.9 % (92.0-98.5) H 12/02/24 10:18 ABG Carboxyhemoglobin 0.9 % (0.0-1.5) 12/02/24 10:18 ABG Methemoglobin 1.1 % (0.0-1.5) 12/02/24 10:18 Other Total Hgb 10.4 g/dL (12.0-18.0) L 12/02/24 10:18 Inspired O2 100.0 % 12/02/24 10:18 Sodium 143 mEq/L (136-145) 12/02/24 10:17 Potassium 3.8 mEq/L (3.5-5.1) 12/02/24 10:17 Chloride 113 mEq/L (98-107) H 12/02/24 10:17 Carbon Dioxide 21 mEq/L (21-32) 12/02/24 10:17 Anion Gap 12.8 mEq/L (5.0-15.0) 12/02/24 10:17 BUN 55 mg/dL (7-18) H 12/02/24 10:17 Creatinine 3.40 mg/dL (0.70-1.30) H 12/02/24 10:17 Est GFR (CKD-EPI) 18 ml/min (=/>90) L 12/02/24 10:17 Glucose 181 mg/dL (74-106) H 12/02/24 10:17 Calcium 8.4 mg/dL (8.5-10.1) L 12/02/24 10:17 Magnesium 2.5 mg/dL (1.6-2.4) H 12/02/24 10:17 Total Bilirubin 0.5 mg/dL (0.2-1.0) 12/02/24 10:17 Direct Bilirubin 0.3 mg/dL (0-0.2) H 12/02/24 10:17 Indirect Bilirubin 0.2 mg/dL (0.2-0.8) 12/02/24 10:17 AST 96 U/L (15-37) H 12/02/24 10:17 ALT 59 U/L (16-61) 12/02/24 10:17 Alkaline Phosphatase 104 U/L (45-117) 12/02/24 10:17 Troponin I High Sens 372.6 pg/mL (<58.9) H* 12/02/24 10:17 NT-Pro-B Natriuret Pep 2413 pg/mL (<450) H 12/02/24 10:17 Serum Total Protein 6.6 g/dL (6.4-8.2) 12/02/24 10:17 Albumin 3.1 g/dL (3.4-5.0) L 12/02/24 10:17 Globulin 3.5 g/dL (2.3-3.5) 12/02/24 10:17 Albumin/Globulin Ratio 0.9 (1.1-1.8) L 12/02/24 10:17 Assessment And Plan: 1. Acute kidney injury on advanced chronic kidney disease secondary to cardiorenal, secondary to atrial fibrillation, cardiac arrest, poor perfusion ATN, nonoliguric, /contrast-induced nephropathy back to baseline over volume Lasix was resumed December 09 continue Lasix 40 mg daily Hold IV fluid we will follow up the patient closely. Would repeat chest x-ray for better evaluation of the fluid status 2. Hypertension, currently low blood pressure patient on Levophed : Continue Lasix Lasix Keep hold SMILEY inhibitor or ARB for the time being. 3. Atrial fibrillation with RVR with cardiac arrest. Asked by Cardiology, continue on anticoagulation. 4. CAD non-ST elevation [place] complicated with congestive heart failure with exacerbation. Currently, the patient on vent. The patient had cardiac cath with contrast with advanced kidney disease. I am going to hold the diuresis for this 24 hour. We will plan to resume it tomorrow and we will follow up the patient. 5. Diabetes, as by primary. 6. Acidosis, non-anion gap metabolic acidosis secondary to poor perfusion. I do not see the need for any bicarb. 7. Hypernatremia. Of IV fluid patient was started on Lasix yesterday had 6 L urine output Increase free water 150 every 4 hour Will follow-up with the patient 8-cardiogenic shock/hypovolemic shock secondary to inguinal hematoma complicated with target organ damage including acute kidney injury secondary to ATN off of pressor currently recover: Of fluid resuscitation Continue Lasix as above 9-chronic kidney disease stage IV secondary to renal mass loss solitary kidney status post acute kidney injury recover back to baseline over volume Continue Lasix 40 mg daily 10-local bleed from cath continue as needed transfusion Will monitor the patient 11-encephalopathy secondary to metabolic/ischemia Follow-up with the primary Follow-up with neurology continue Avril Thank you for allowing us to participate in the care of your patient. Time spent evaluating the patient, [id number] reviewing data lab and the radiology placing order documentation in the chart discussing the case with the residential team leader including ICU staff and hospitalist more than 55 minutes
[2024-12-10] MEDS ORDERED: VITAL HP 1,000 ML BOT RTH SCH (09:51)
--- NOTE | 2024-12-10 12:25 | RAD REPORT ---
EXAMINATION: ONE VIEW CHEST XR CLINICAL INDICATION: Male, 79 years old.,COPD TECHNIQUE: Frontal chest projection is submitted. Examination is limited by patient positioning and t echnique. COMPARISON: 12/08/2024 FINDINGS: Right arm PICC with catheter tip projecting over the mid SVC. Bibasilar pleural-parenchymal opacities perihilar hazy opacities, stable. No pneumothorax. Mild cardiomegaly. Mediastinal contours are unchanged. IMPRESSION: Bibasilar pleural-parenchymal opacities perihilar hazy opacities, stable, could indicate underlying p ulmonary edema.
[2024-12-11 06:43] LABS: Hematocrit 30.4 % (39.6-49.0); Hemoglobin 10.0 g/dL (13.6-17.9); MCH 31.7 pg (27.0-35.0); MCHC 32.9 g/dL (32.0-36.0); MCV 96.5 fL (80-100); MPV 8.6 fL (7.6-11.3); RBC Red Blood Cell Count 3.15 M/uL (4.33-5.43); White Blood Count 8.50 thou/uL (4.3-10.9)
[2024-12-11 07:19] LABS: Anion Gap 8.0 mEq/L (5.0-15.0); BUN Blood Urea Nitrogen 47.0 mg/dL (7-18); Glucose Level 115.0 mg/dL (74-106); Magnesium 2.4 mg/dL (1.6-2.4); Potassium 4.0 mEq/L (3.5-5.1)
--- NOTE | 2024-12-11 10:29 | P.PN ---
Date of Service: 12/11/24 Subjective: confused overnight Pt pulled dobhoff out last night otherwise no new issues vitals stable Physical Exam: Gen: More awake/alert, responding to questions with soft speech CV: Regular rate and rhythm, bilateral lower extremity pitting edema Pulm: Nonlabored respirations on 1L NC Abdomen: Soft, nontender, nondistended Neuro: Open eyes to verbal, vocalizes occasionally, obeys simple commands, moves all extremities spontaneously PICC line in place Problem List: V-fib arrest with ROSC NSTEMI Cardiogenic shock CAD s/p PCI x2 (12/05/24) Acute hypoxic respiratory failure secondary to CHF exacerbation 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 Bryan. PCI LAD and OM1 done, LPDA is occluded, most likely culprit, wire will not cross s/p Integrilin drip Continue asa 81mg, brilinta, amiodarone Extubated to NC on 12/07. Dobhoff placed 12/08 and started on tube feeds. Speech/Stippler consults. Speech recommended NPO 12/09 due to risk of aspiration, minimal responsiveness re-eval given increased alertness. Pt pulled dobhoff out last night. CXR 12/10 with mild pulm edema; cont IV lasix 40mg daily Suspected Bacteremic contamination 1 bottle grew E. coli and Streptococcus Infantarius urine culture without growth Previously on IV cefepime 12/03-12/05 Stable off abx. No leukocytosis/fever Acute blood loss anemia Hgb dropped 10.2 -> 7.2 on 12/05. Patient had hematoma in the right thigh at entry site of C. CT abdomen/pelvis (12/05): right groin hematoma, no retroperitoneal bleed s/p 3uPRBC (12/05-12/06) Monitor hgb closely Anoxic encephalopathy Seizures 2 episodes of seizures reported. Neurology consulted, case discussed with Dr. Nath who recommended MRI of the brain, EEG. MRI cannot be done due to PPM device. Neuro recommended CT without contrast if cant do MRI which was negative. Continue IV Keppra; increased back to 500mg BID on 12/09 - per DR. Nath. Seizure activity / status noted on EEG from 12/08 Monitor closely Hypernatremia, improved CKD4 Cr improved compared to admission. Stable. Continue to monitor renal function, electrolytes NIDDM2 accu-cheks, SSI VTE: SCD Code: DNR
--- NOTE | 2024-12-11 11:51 | P.PN ---
Date of Service: 12/11/24 79-year-old gentleman. All the information has been obtained from the record as the patient being intubated. The patient well known to me from the office, last seen back in November 12, 2024. 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 The patient chronic kidney disease, as I mentioned secondary to solitary kidney, baseline creatinine 3, GFR of 17 as of November 2024. Apparently, the patient came to the hospital complaining from atrial fibrillation with RVR. The patient had cardiac arrest. CPR was initiated. The patient was cardioverted, received Levophed, then weaned from Levophed. The patient had cardiac cath today and 2 stents were placed. Levophed was resumed. The patient had good urine output of 950 in the last 24 hours Patient's status post cardiac cath developed cardiogenic shock/hypovolemic shock secondary to hematoma on the site of cannulation patient did well intubated then extubated pressor has weaned off patient continues to have good urine output kidney function improved Physical Examination: Temp Pulse Resp BP Pulse Ox 98.2 F 65 14 157/55 H 95 12/11/24 08:00 12/11/24 09:43 12/11/24 08:00 12/11/24 09:43 12/11/24 08:00 Patient on vent FiO2 30% saturating above 96% Chest: Faint rales bilateral. Heart: S1, S2 systolic murmur. Abdomen: Soft, nontender. Extremities: +1 edema. Hematoma on the right groin Neurologic: The patient awake follow-up simple command no focality still c onfused Amiodarone HCl (Amiodarone Hcl 200 Mg Tab) 200 mg PO BID [facility] Last Admin: 12/11/24 09:44 Dose: 200 mg Aspirin (Aspirin 81 Mg Chewable Tablet) 81 mg PO DAILY [facility] Last Admin: 12/11/24 09:44 Dose: 81 mg Fentanyl Citrate (Fentanyl Citr 100 Mcg/2 Ml) 25 mcg IV Q4HP PRN PRN Reason: Pain scale 8-10 (Severe) Last Admin: 12/07/24 05:00 Dose: 25 mcg Furosemide (Furosemide 40 Mg/4 Ml Vial) 40 mg IV DAILY [facility] Last Admin: 12/11/24 09:43 Dose: 40 mg Levetiracetam 500 mg/ Sodium (Chloride) 105 mls @ 420 mls/hr IV BID [facility] Last Admin: 12/11/24 09:44 Dose: 105 mls Midazolam HCl (Midazolam Hcl 2 Mg/2 Ml Inj) 2 mg IV Q2HP PRN PRN Reason: Sedation-Propofol not effect Nutritional Formula (Vital Hp 1,000 Ml Bot) 0 ml RTH CONT INGRID Sodium Chloride (Sodium Chloride 0.9% 10ml Inj) 10 ml IV UD PRN PRN Reason: Diluant Ticagrelor (Ticagrelor 90 Mg Tablet) 90 mg PO BID [facility] Last Admin: 12/11/24 09:44 Dose: 90 mg Laboratory Last Values WBC 4.80 thou/uL (4.3-10.9) 12/02/24 10:17 RBC 3.31 M/uL (4.33-5.43) L 12/02/24 10:17 Hgb 11.0 g/dL (13.6-17.9) L 12/02/24 10:17 Hct 33.9 % (39.6-49.0) L 12/02/24 10:17 MCV 102.6 fL (80-100) H 12/02/24 10:17 MCH 33.1 pg (27.0-35.0) 12/02/24 10:17 MCHC 32.3 g/dL (32.0-36.0) 12/02/24 10:17 RDW 15.1 % (12.1-15.2) 12/02/24 10:17 Plt Count 156 thou/uL (152-406) 12/02/24 10:17 MPV 8.4 fL (7.6-11.3) 12/02/24 10:17 Neutrophils % 61.6 % (41.7-73.7) 12/02/24 10:17 Lymphocytes % 23.3 % (15.3-44.8) 12/02/24 10:17 Monocytes % 8.9 % (3.3-12.3) 12/02/24 10:17 Eosinophils % 5.2 % (0-4.4) H 12/02/24 10:17 Basophils % 1.0 % (0-1.3) 12/02/24 10:17 Absolute Neutrophils 2.9 K/uL (1.8-8.0) 12/02/24 10:17 Absolute Lymphocytes 1.1 K/uL (0.7-4.9) 12/02/24 10:17 Absolute Monocytes 0.4 K/uL (0.1-1.3) 12/02/24 10:17 Absolute Eosinophils 0.2 K/uL (0-0.5) 12/02/24 10:17 Absolute Basophils 0.0 K/uL (0-0.5) 12/02/24 10:17 PT 13.6 SECONDS (10-13.0) H 12/02/24 10:17 INR 1.21 12/02/24 10:17 pH 7.20 (7.35-7.45) L* 12/02/24 10:18 pCO2 49 mmHg (35-45) H 12/02/24 10:18 pO2 316 mmHg (75-100) H 12/02/24 10:18 HCO3 19.5 mmol/L (22.0-28.0) L 12/02/24 10:18 Base Excess -8.5 mmol/L (-2.0-3.0) L 12/02/24 10:18 Oxyhemoglobin 97.4 % (94.0-97.0) H 12/02/24 10:18 ABG O2 Sat (Measured) 99.9 % (92.0-98.5) H 12/02/24 10:18 ABG Carboxyhemoglobin 0.9 % (0.0-1.5) 12/02/24 10:18 ABG Methemoglobin 1.1 % (0.0-1.5) 12/02/24 10:18 Other Total Hgb 10.4 g/dL (12.0-18.0) L 12/02/24 10:18 Inspired O2 100.0 % 12/02/24 10:18 Sodium 143 mEq/L (136-145) 12/02/24 10:17 Potassium 3.8 mEq/L (3.5-5.1) 12/02/24 10:17 Chloride 113 mEq/L (98-107) H 12/02/24 10:17 Carbon Dioxide 21 mEq/L (21-32) 12/02/24 10:17 Anion Gap 12.8 mEq/L (5.0-15.0) 12/02/24 10:17 BUN 55 mg/dL (7-18) H 12/02/24 10:17 Creatinine 3.40 mg/dL (0.70-1.30) H 12/02/24 10:17 Est GFR (CKD-EPI) 18 ml/min (=/>90) L 12/02/24 10:17 Glucose 181 mg/dL (74-106) H 12/02/24 10:17 Calcium 8.4 mg/dL (8.5-10.1) L 12/02/24 10:17 Magnesium 2.5 mg/dL (1.6-2.4) H 12/02/24 10:17 Total Bilirubin 0.5 mg/dL (0.2-1.0) 12/02/24 10:17 Direct Bilirubin 0.3 mg/dL (0-0.2) H 12/02/24 10:17 Indirect Bilirubin 0.2 mg/dL (0.2-0.8) 12/02/24 10:17 AST 96 U/L (15-37) H 12/02/24 10:17 ALT 59 U/L (16-61) 12/02/24 10:17 Alkaline Phosphatase 104 U/L (45-117) 12/02/24 10:17 Troponin I High Sens 372.6 pg/mL (<58.9) H* 12/02/24 10:17 NT-Pro-B Natriuret Pep 2413 pg/mL (<450) H 12/02/24 10:17 Serum Total Protein 6.6 g/dL (6.4-8.2) 12/02/24 10:17 Albumin 3.1 g/dL (3.4-5.0) L 12/02/24 10:17 Globulin 3.5 g/dL (2.3-3.5) 12/02/24 10:17 Albumin/Globulin Ratio 0.9 (1.1-1.8) L 12/02/24 10:17 Assessment And Plan: 1. Acute kidney injury on advanced chronic kidney disease secondary to cardiorenal, secondary to atrial fibrillation, cardiac arrest, poor perfusion ATN, nonoliguric, /contrast-induced nephropathy back to baseline over volume Lasix was resumed December 09 continue Lasix 40 mg daily off IV fluid we will follow up the patient closely. Would repeat chest x-ray for better evaluation of the fluid status 2. Hypertension, currently low blood pressure patient on Levophed : Continue Lasix Lasix Keep hold SMILEY inhibitor or ARB for the time being. 3. Atrial fibrillation with RVR with cardiac arrest. Asked by Cardiology, continue on anticoagulation. 4. CAD non-ST elevation [place] complicated with congestive heart failure with exacerbation. Currently, the patient on vent. The patient had cardiac cath with contrast with advanced kidney disease. I am going to hold the diuresis for this 24 hour. We will plan to resume it tomorrow and we will follow up the patient. 5. Diabetes, as by primary. 6. Acidosis, non-anion gap metabolic acidosis secondary to poor perfusion. I do not see the need for any bicarb. 7. Hypernatremia. Of IV fluid patient was started on Lasix yesterday had 6 L urine output Increase free water 150 every 4 hour Will follow-up with the patient 8-cardiogenic shock/hypovolemic shock secondary to inguinal hematoma complicated with target organ damage including acute kidney injury secondary to ATN off of pressor currently recover: Of fluid resuscitation Continue Lasix as above 9-chronic kidney disease stage IV secondary to renal mass loss solitary kidney status post acute kidney injury recover back to baseline over volume Continue Lasix 40 mg daily 10-local bleed from cath continue as needed transfusion Will monitor the patient 11-encephalopathy secondary to metabolic/ischemia Follow-up with the primary Follow-up with neurology teresita Mackenzie Thank you for allowing us to participate in the care of your patient. Time spent evaluating the patient, [id number] reviewing data lab and the radiology placing order documentation in the chart discussing the case with the meat team member including ICU staff and hospitalist more than 55 minutes
[2024-12-12 06:38] LABS: Absolute Lymphocytes (CBC) 0.4 K/uL (0.7-4.9); Hematocrit 31.8 % (39.6-49.0); Hemoglobin 10.6 g/dL (13.6-17.9); MCH 31.7 pg (27.0-35.0); MCHC 33.3 g/dL (32.0-36.0); MCV 95.4 fL (80-100); MPV 8.6 fL (7.6-11.3); Nucleated RBC Absolute Count 0.0 (0-0); Nucleated Red Blood Cells % 0.1 % (0-0); RBC Red Blood Cell Count 3.34 M/uL (4.33-5.43); White Blood Count 7.80 thou/uL (4.3-10.9)
[2024-12-12 06:58] LABS: Anion Gap 10.0 mEq/L (5.0-15.0); BUN Blood Urea Nitrogen 46.0 mg/dL (7-18); Glucose Level 114.0 mg/dL (74-106); Magnesium 2.2 mg/dL (1.6-2.4); Potassium 4.0 mEq/L (3.5-5.1)
--- NOTE | 2024-12-12 12:45 | P.PN ---
Date of Service: 12/12/24 Subjective: more awake/alert passed bedside swallow this morning. no choking, coughing seen with intake. 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 Bryan. PCI LAD and OM1 done, LPDA is occluded, most likely culprit, wire will not cross s/p Integrilin drip Continue asa 81mg, brilinta, amiodarone Extubated to [place] on 12/07. Dobhoff placed 12/08 and started on tube feeds. Speech/Aerial Photographer consults. Speech recommended NPO 12/09 due to risk of aspiration, minimal responsiveness Pt pulled dobhoff out 12/10 Passed bedside swallow with nursing staff 12/12. No choking/aspiration noted. CXR 12/10 with mild pulm edema; cont IV lasix 40mg daily Suspected Bacteremic contamination 1 bottle grew E. coli and Streptococcus Infantarius urine culture without growth Previously on IV cefepime 12/03-12/05 Stable off abx. No leukocytosis/fever Acute blood loss anemia Hgb dropped 10.2 -> 7.2 on 12/05. Patient had hematoma in the right thigh at entry site of LHC. CT abdomen/pelvis (12/05): right groin hematoma, no retroperitoneal bleed s/p 3uPRBC (12/05-12/06) Monitor hgb closely Anoxic encephalopathy Seizures 2 episodes of seizures reported. Neurology consulted, case discussed with Dr. Nath who recommended MRI of the brain, EEG. MRI cannot be done due to PPM device. Neuro recommended CT without contrast if cant do MRI which was negative. Continue IV Keppra; increased back to 500mg BID on 12/09 - per DR. Nath. Seizure activity / status noted on EEG from 12/08 Monitor closely Hypernatremia, improved CKD4 Cr improved compared to admission. Stable. Continue to monitor renal function, electrolytes NIDDM2 accu-cheks, SSI VTE: SCD Code: DNR
[2024-12-12] MEDS: levETIRAcetam 500 MG TAB PO SCH (20:28)
--- NOTE | 2024-12-13 01:40 | PN ---
Date of Progress Note: 12/12/2024 Chief Complaint: Acute on chronic kidney injury. Subjective: The patient was admitted to the hospital to ICU and was intubated. He had cardiogenic s hock, hypovolemic shock secondary to hematoma. He required pressors when he was weaned off pressors and currently he is on telemetry floor. He has history of chronic kidney disease stage III advancing to stage IV secondary to solitary kidney, and the severe hypertensive kidney disease. Baseline seru m creatinine level 3 and GFR 17 as of November 22, 2024. The patient came to the hospital because o f atrial fibrillation with rapid ventricular response, and then he developed cardiac arrest. CPR was initiated. The patient was cardioverted and then required Levophed drip. During this admission, th e patient underwent cardiac catheterization and had 2 stents placed. Renal function overall graduall y improved. Urine output remains nonoliguric. Review of Systems: Denies chest pain, palpitation. Physical Examination: Lungs: Clear to auscultation bilaterally. Heart: S1-S2. Abdomen: Soft. Extremities: No edema. Impression And Plan: 1. Acute kidney injury secondary to cardiorenal syndrome in setting of cardiac arrest, atrial fibrill ation, hypoperfusion, contrast-induced nephropathy. The patient will continue Lasix for congestive h eart failure and volume control. Monitor renal function closely and adjust supplementation for hypok alemia as needed. 2. Hypotension, resolved. The patient was taken off Levophed drip. Continue Lasix and continue to h old SMILEY inhibitor and angiotensin receptor nelsy. 3. Atrial fibrillation with rapid ventricular response, status post cardiac arrest. The patient is f ollowed by residential driver. 4. Coronary artery disease, status post stents. The patient had non-ST elevation myocardial infarcti on and congestive heart failure exacerbation with cardiac arrest. 5. Diabetes mellitus, diabetic kidney disease. Continue insulin. 6. Acidosis. The patient had non-anion gap metabolic acidosis secondary to chronic kidney disease, a nd it is resolved. Monitor renal function closely. EB/MODL Voice ID: [id number] Report ID: [id number]
[2024-12-13 07:39] LABS: Albumin 3.1 g/dL (3.4-5.0); Anion Gap 6.8 mEq/L (5.0-15.0); BUN Blood Urea Nitrogen 52.0 mg/dL (7-18); Glucose Level 117.0 mg/dL (74-106); Magnesium 2.4 mg/dL (1.6-2.4); Potassium 3.8 mEq/L (3.5-5.1)
[2024-12-13] MEDS: FUROSEMIDE 40 MG TABLET PO SCH (10:19)
[2024-12-13 11:03] LABS: Absolute Lymphocytes (CBC) 0.4 K/uL (0.7-4.9); Hematocrit 33.6 % (39.6-49.0); Hemoglobin 10.8 g/dL (13.6-17.9); MCH 31.3 pg (27.0-35.0); MCHC 32.2 g/dL (32.0-36.0); MCV 97.3 fL (80-100); MPV 8.7 fL (7.6-11.3); Nucleated RBC Absolute Count 0.0 (0-0); Nucleated Red Blood Cells % 0.0 % (0-0); RBC Red Blood Cell Count 3.45 M/uL (4.33-5.43); White Blood Count 8.50 thou/uL (4.3-10.9)
--- NOTE | 2024-12-13 12:30 | P.PN ---
Date of Service: 12/13/24 Subjective: intermittent confusion noted vitals stable no chest pain no further seizure activity Physical Exam: Gen: More awake/alert, responding to questions with soft speech CV: Regular rate and rhythm, bilateral lower extremity pitting edema Pulm: Nonlabored respirations on room air Abdomen: Soft, nontender, nondistended Neuro: Open eyes to verbal, vocalizes occasionally, obeys simple commands, moves all extremities spontaneously PICC line in place Problem List: V-fib arrest with ROSC NSTEMI Cardiogenic shock CAD s/p PCI x2 (12/05/24) Acute hypoxic respiratory failure secondary to CHF exacerbation 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 Bryan. PCI LAD and OM1 done, LPDA is occluded, most likely culprit, wire will not cross s/p Integrilin drip Continue asa 81mg, brilinta, amiodarone Extubated to NC on 12/07. Dobhoff placed 12/08 and started on tube feeds. Speech/Hand Coke Drawer consults. Speech recommended NPO 12/09 due to risk of aspiration, minimal responsiveness Pt pulled dobhoff out 12/10 Passed bedside swallow with nursing staff 12/12. No choking/aspiration noted. CXR 12/10 with mild pulm edema; cont IV lasix 40mg daily Suspected Bacteremic contamination 1 bottle grew E. coli and Streptococcus Infantarius urine culture without growth Previously on IV cefepime 12/03-12/05 Stable off abx. No leukocytosis/fever Acute blood loss anemia Hgb dropped 10.2 -> 7.2 on 12/05. Patient had hematoma in the right thigh at entry site of C. CT abdomen/pelvis (12/05): right groin hematoma, no retroperitoneal bleed s/p 3uPRBC (12/05-12/06) Hgb has been stable for several days since last transfusion. Anoxic encephalopathy Seizures 2 episodes of seizures reported. Neurology consulted, case discussed with Dr. Nath who recommended MRI of the brain, EEG. MRI cannot be done due to PPM device. Neuro recommended CT without contrast if cant do MRI which was negative. Continue IV Keppra; increased back to 500mg BID on 12/09 - per DR. Nath. Seizure activity / status noted on EEG from 12/08 Monitor closely Hypernatremia, improved CKD4 Cr improved compared to admission. Stable. Continue to monitor renal function, electrolytes NIDDM2 accu-cheks, SSI VTE: SCD Code: DNR
[2024-12-14 06:21] VITALS: BMI 35.0
[2024-12-14 06:25] LABS: Anion Gap 8.6 mEq/L (5.0-15.0); BUN Blood Urea Nitrogen 58.0 mg/dL (7-18); Glucose Level 115.0 mg/dL (74-106); Magnesium 2.3 mg/dL (1.6-2.4); Potassium 3.6 mEq/L (3.5-5.1)
--- NOTE | 2024-12-14 08:11 | P.PN ---
Date of Service: 12/14/24 Subjective: no new issues denies chest pain no further seizure activity vitals stable no reported trouble swallowing Physical Exam: Gen: More awake/alert, responding to questions with soft speech CV: Regular rate and rhythm, bilateral lower extremity pitting edema Pulm: Nonlabored respirations on room air Abdomen: Soft, nontender, nondistended Neuro: Open eyes to verbal, vocalizes occasionally, obeys simple commands, moves all extremities spontaneously PICC line in place Problem List: V-fib arrest with ROSC complicated NSTEMI, with h/o CAD, now s/p PCI (12/05/24) Cardiogenic shock Acute hypoxic respiratory failure secondary to CHF exacerbation 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 Bryan. PCI LAD and OM1 done, LPDA is occluded, most likely culprit, wire will not cross s/p Integrilin drip Continue asa 81mg, brilinta, amiodarone Extubated to [place] on 12/07. Passed bedside swallow with nursing staff 12/12. No choking/aspiration noted. CXR 12/10 with mild pulm edema IV lasix deescalated to oral lasix 40 mg daily Suspected Bacteremic contamination 1 bottle grew E. coli and Streptococcus Infantarius urine culture without growth Previously on IV cefepime 12/03-12/05 Stable off abx. No leukocytosis/fever Acute blood loss anemia; hx iron deficiency anemia Hgb dropped 10.2 -> 7.2 on 12/05. Patient had hematoma in the right thigh at entry site of LHC. CT abdomen/pelvis (12/05): right groin hematoma, no retroperitoneal bleed s/p 3uPRBC (12/05-12/06) Hgb has been stable for several days since last transfusion. Anoxic encephalopathy Seizures 2 episodes of seizures reported. Neurology consulted, case discussed with Dr. Nath who recommended MRI of the brain, EEG. MRI cannot be done due to PPM device. Neuro recommended CT without contrast if cant do MRI which was negative. Continue IV Keppra; increased back to 500mg BID on 12/09 - per DR. Nath. Seizure activity / status noted on EEG from 12/08 Monitor closely Hypernatremia, improved CKD4 Cr improved compared to admission. Stable. 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
[2024-12-14] MEDS: PANTOPRAZOLE 40MG TABLET PO SCH (09:31)
--- NOTE | 2024-12-14 13:32 | P.PN ---
Date of Service: 12/14/24 79-year-old gentleman. All the information has been obtained from the record as the patient being intubated. The patient well known to me from the office, last seen back in November 12, 2024. 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 The patient chronic kidney disease, as I mentioned secondary to solitary kidney, baseline creatinine 3, GFR of 17 as of November 2024. Apparently, the patient came to the hospital complaining from atrial fibrillation with RVR. The patient had cardiac arrest. CPR was initiated. The patient was cardioverted, received Levophed, then weaned from Levophed. The patient had cardiac cath today and 2 stents were placed. Levophed was resumed. The patient had good urine output of 950 in the last 24 hours Patient's status post cardiac cath developed cardiogenic shock/hypovolemic shock secondary to hematoma on the site of cannulation patient did well intubated then extubated pressor has weaned off patient continues to have good urine output kidney function improved Physical Examination: Temp Pulse Resp BP Pulse Ox 98.0 F 63 16 113/61 99 12/13/24 12:00 12/13/24 12:00 12/13/24 12:00 12/13/24 12:00 12/13/24 12:00 Patient on vent FiO2 30% saturating above 96% Chest: Faint rales bilateral. Heart: S1, S2 systolic murmur. Abdomen: Soft, nontender. Extremities: +1 edema. Much better with venous stasis change both lower extremity crumbling on the skin resulting from improvement on edema Neurologic: The patient awake follow-up simple command no focality still confused Assessment And Plan: 1. Acute kidney injury on advanced chronic kidney disease secondary to cardio renal, secondary to atrial fibrillation, cardiac arrest, poor perfusion ATN, nonoliguric, /contrast-induced nephropathy back to baseline over volume Lasix was resumed December 09 continue Lasix 40 mg daily off IV fluid we will follow up the patient closely. Would repeat chest x-ray for better evaluation of the fluid status 2. Hypertension, currently low blood pressure patient on Levophed : Continue Lasix Lasix Keep hold SMILEY inhibitor or ARB for the time being. 3. Atrial fibrillation with RVR with cardiac arrest. Asked by Cardiology, continue on anticoagulation. 4. CAD non-ST elevation [place] complicated with congestive heart failure with exacerbation. Currently, the patient on vent. The patient had cardiac cath with contrast with advanced kidney disease. I am going to hold the diuresis for this 24 hour. We will plan to resume it tomorrow and we will follow up the patient. 5. Diabetes, as by primary. 6. Acidosis, non-anion gap metabolic acidosis secondary to poor perfusion. I do not see the need for any bicarb. 7. Hypernatremia. Resolved off IV fluid patient Continue Lasix Will follow-up with the patient 8-cardiogenic shock/hypovolemic shock secondary to inguinal hematoma complicated with target organ damage including acute kidney injury secondary to ATN off of pressor currently recover: Of fluid resuscitation Continue Lasix as above 9-chronic kidney disease stage IV secondary to renal mass loss solitary kidney status post acute kidney injury recover back to baseline over volume Continue Lasix 40 mg daily 10-local bleed from cath continue as needed transfusion Will monitor the patient 11-encephalopathy secondary to metabolic/ischemia Follow-up with the primary Follow-up with neurology teresita Mackenzie Thank you for allowing us to participate in the care of your patient. Time spent evaluating the patient, [id number] reviewing data lab and the radiology placing order documentation in the chart discussing the case with the steam finisher including nursing staff and hospitalist more than 55 minutes
--- NOTE | 2024-12-14 13:33 | P.PN ---
Date of Service: 12/14/24 79-year-old gentleman. All the information has been obtained from the record as the patient being intubated. The patient well known to me from the office, last seen back in November 12, 2024. 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 The patient chronic kidney disease, as I mentioned secondary to solitary kidney, baseline creatinine 3, GFR of 17 as of November 2024. Apparently, the patient came to the hospital complaining from atrial fibrillation with RVR. The patient had cardiac arrest. CPR was initiated. The patient was cardioverted, received Levophed, then weaned from Levophed. The patient had cardiac cath today and 2 stents were placed. Levophed was resumed. The patient had good urine output of 950 in the last 24 hours Patient's status post cardiac cath developed cardiogenic shock/hypovolemic shock secondary to hematoma on the site of cannulation patient did well intubated then extubated pressor has weaned off patient continues to have good urine output kidney function improved Physical Examination: Temp Pulse Resp BP Pulse Ox 98.0 F 63 16 113/61 99 12/13/24 12:00 12/13/24 12:00 12/13/24 12:00 12/13/24 12:00 12/13/24 12:00 Patient on vent FiO2 30% saturating above 96% Chest: Faint rales bilateral. Heart: S1, S2 systolic murmur. Abdomen: Soft, nontender. Extremities: +1 edema. Much better with venous stasis change both lower extremity crumbling on the skin resulting from improvement on edema Neurologic: The patient awake follow-up simple command no focality still confused Assessment And Plan: 1. Acute kidney injury on advanced chronic kidney disease secondary to cardio renal, secondary to atrial fibrillation, cardiac arrest, poor perfusion ATN, nonoliguric, /contrast-induced nephropathy back to baseline over volume Lasix was resumed December 09 continue Lasix 40 mg daily off IV fluid we will follow up the patient closely. Would repeat chest x-ray for better evaluation of the fluid status 2. Hypertension, currently low blood pressure patient on Levophed : Continue Lasix Lasix Keep hold SMILEY inhibitor or ARB for the time being. 3. Atrial fibrillation with RVR with cardiac arrest. Asked by Cardiology, continue on anticoagulation. 4. CAD non-ST elevation [place] complicated with congestive heart failure with exacerbation. Currently, the patient on vent. The patient had cardiac cath with contrast with advanced kidney disease. I am going to hold the diuresis for this 24 hour. We will plan to resume it tomorrow and we will follow up the patient. 5. Diabetes, as by primary. 6. Acidosis, non-anion gap metabolic acidosis secondary to poor perfusion. I do not see the need for any bicarb. 7. Hypernatremia. Of IV fluid patient was started on Lasix yesterday had 6 L urine output Increase free water 150 every 4 hour Will follow-up with the patient 8-cardiogenic shock/hypovolemic shock secondary to inguinal hematoma complicated with target organ damage including acute kidney injury secondary to ATN off of pressor currently recover: Of fluid resuscitation Continue Lasix as above 9-chronic kidney disease stage IV secondary to renal mass loss solitary kidney status post acute kidney injury recover back to baseline over volume Continue Lasix 40 mg daily 10-local bleed from cath continue as needed transfusion Will monitor the patient 11-encephalopathy secondary to metabolic/ischemia Follow-up with the primary Follow-up with neurology teresita Mackenzie Thank you for allowing us to participate in the care of your patient. Time spent evaluating the patient, [id number] reviewing data lab and the radiology placing order documentation in the chart discussing the case with the steam and gas turbine assembler including nursing staff and hospitalist more than 55 minutes
--- NOTE | 2024-12-14 14:53 | RAD REPORT ---
EXAMINATION: ONE VIEW CHEST XR CLINICAL INDICATION: COPD TECHNIQUE: Frontal chest projection is submitted. Examination is limited by patient positioning and t echnique. COMPARISON: 12/10/2024 FINDINGS: Moderate right-sided pleural effusion. Left lung is grossly clear. The heart is moderately enlarged w ith dual lead pacer device present. No displaced fractures identified.
[2024-12-15 06:39] LABS: Hematocrit 34.0 % (39.6-49.0); Hemoglobin 11.6 g/dL (13.6-17.9); MCH 33.0 pg (27.0-35.0); MCHC 34.2 g/dL (32.0-36.0); MCV 96.6 fL (80-100); MPV 8.5 fL (7.6-11.3); RBC Red Blood Cell Count 3.52 M/uL (4.33-5.43); White Blood Count 9.60 thou/uL (4.3-10.9)
[2024-12-15 06:58] LABS: Anion Gap 8.7 mEq/L (5.0-15.0); BUN Blood Urea Nitrogen 69.0 mg/dL (7-18); Glucose Level 109.0 mg/dL (74-106); Magnesium 2.5 mg/dL (1.6-2.4); Potassium 3.7 mEq/L (3.5-5.1)
--- NOTE | 2024-12-15 10:30 | P.PN ---
Date of Service: 12/15/24 Subjective: Feeling better no issues overnight family updated at bedside they would like to go to SNF - [facility] as Pt family works there. 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 Bryan. PCI LAD and OM1 done, LPDA is occluded, most likely culprit, wire will not cross s/p Integrilin drip Continue asa 81mg, brilinta, amiodarone Extubated to NC on 12/07. Passed bedside swallow with nursing staff 12/12. No choking/aspiration noted. DC lasix given worsening renal function Dr. Bryan recommended continuing on Eliquis and Brilinta only dc aspirin and restart eliquis at 2.5 mg BID Continue PT. ss/cm consulted for SNF. They prefer [facility]. GAL - suspect due to overdiuresis - pt not eating much orthostatic today, will give 500ml Suspected Bacteremic contamination 1 bottle grew E. coli and Streptococcus Infantarius urine culture without growth Previously on IV cefepime 12/03-12/05 Stable off abx. No leukocytosis/fever Acute blood loss anemia; hx iron deficiency anemia Hgb dropped 10.2 -> 7.2 on 12/05. Patient had hematoma in the right thigh at entry site of LHC. CT abdomen/pelvis (10/3): right groin hematoma, no retroperitoneal bleed s/p 3uPRBC (12/05-12/06) Hgb has been stable for several days since last transfusion. Anoxic encephalopathy Seizures, new onset (this admission) 2 episodes of seizures reported. Neurology consulted, case discussed with Dr. Nath who recommended MRI of the brain, EEG. MRI cannot be done due to PPM device. Neuro recommended CT without contrast if cant do MRI which was negative. Continue IV Keppran 500mg BID. 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 Bryan recommended continuing on Eliquis and Brilinta only 12/15 - dc aspirin and restart eliquis at 2.5 mg BID VTE: restart eliquis tomorrow at 2.5mg BID Code: DNR Dispo: [facility] ss/ consult. Pending approval
[2024-12-15] MEDS: NA CHLORIDE 0.9% 500 ML IV SCH (14:01)
--- NOTE | 2024-12-16 01:36 | PN ---
Date of Progress Note: 12/15/2024 Subjective: The patient is an 79-year-old man, who was admitted to ICU. He has chronic kidney disea se stage III, advancing to stage IV secondary to solitary kidney, benign nephrosclerosis, hypertensiv e kidney disease. He has history of gastric bypass done in May 2017, morbid obesity, and baseline creatinine level 3 and GFR 17 as of November 2024. The patient came to the hospital, complaining of atrial fibrillation, palpitation. He was found to have atrial fibrillation with rapid ventricular r esponse and subsequently he had cardiac arrest. CPR was initiated. The patient was cardioverted, st arted on Levophed and subsequently admitted to ICU and gradually was weaned off Levophed. Urine outp ut was diminished. The patient developed acute kidney injury in setting of cardiogenic shock, hypovo lemic shock secondary to hematoma. The patient was intubated in ICU. Subsequently, he was weaned of f pressors and was extubated. He is hemodynamically stable today. Denies chest pain, palpitation. Physical Examination: Lungs: Clear to auscultation bilaterally. Heart: S1-S2. Abdomen: Soft, benign. Extremities: Slight edema. Impression And Plan: 1. Acute kidney injury on advanced chronic kidney disease secondary to cardiorenal syndrome in settin g of atrial fibrillation, cardiac arrest. He developed renal hypoperfusion, acute tubular necrosis, which was nonoliguric, complicated by contrast-induced nephropathy. Renal function improved to basel ine and Lasix was resumed on December 09 for congestive heart failure and fluid overload. 2. Hypertension. Blood pressure is stabilizing. The patient is off Levophed. SMILEY inhibitor is on h old. 3. Atrial fibrillation, per Primary Team. 4. Coronary artery disease, non-ST elevation myocardial infarction. Cardiorenal syndrome. Continue Lasix as needed SMILEY inhibitor on hold due to acute kidney injury and risk of hyperkalemia. 5. Diabetes mellitus. Avoid metformin. Continue insulin. 6. Acidosis, non-anion gap acidosis secondary to hypoperfusion. The patient may benefit from bicarbo nati drip. Currently, the patient is stable. Does not require bicarbonate drip. 7. Hypernatremia. Continue p.o. hydration. 8. Cardiogenic shock, hypovolemic shock secondary to inguinal hematoma, complicated with target organ damage including acute kidney injury secondary to ATN. The patient is off pressors and recovered to baseline renal function. Continue Lasix for volume control. 9. Chronic kidney disease stage IV due to solitary kidney and hypertensive kidney disease. Avoid nep hrotoxic medication. Continue Lasix hypervolemia. EB/MODL Voice ID: [id number] Report ID: [id number]
[2024-12-16 06:52] LABS: Absolute Lymphocytes (CBC) 0.6 K/uL (0.7-4.9); Hematocrit 33.9 % (39.6-49.0); Hemoglobin 11.1 g/dL (13.6-17.9); MCH 31.8 pg (27.0-35.0); MCHC 32.6 g/dL (32.0-36.0); MCV 97.4 fL (80-100); MPV 8.5 fL (7.6-11.3); Nucleated RBC Absolute Count 0.0 (0-0); Nucleated Red Blood Cells % 0.0 % (0-0); RBC Red Blood Cell Count 3.48 M/uL (4.33-5.43); White Blood Count 9.10 thou/uL (4.3-10.9)
[2024-12-16 07:08] LABS: Anion Gap 9.2 mEq/L (5.0-15.0); BUN Blood Urea Nitrogen 73.0 mg/dL (7-18); Glucose Level 107.0 mg/dL (74-106); Magnesium 2.6 mg/dL (1.6-2.4); Potassium 4.2 mEq/L (3.5-5.1)
[2024-12-16] MEDS: APIXABAN 2.5 MG TABLET PO SCH (10:10)
--- NOTE | 2024-12-16 11:38 | RAD REPORT ---
EXAMINATION:Lower Extremity Artery [facility] [employer] CLINICAL INDICATION: Male, 79 years old. rule out right groin pseudoaneurysm or AV fistula RIGHT TECHNIQUE: Arterial duplex ultrasound was performed of the right lower extremity with real-time, colo r-flow, and spectral wave Doppler evaluation. COMPARISON: No prior exam. FINDINGS: Complex appearing hematoma in the right groin region noted. Assessment in the region is limited however no gross fistula or pseudoaneurysm seen. IMPRESSION: Limited assessment shows large right groin hematoma. No pseudoaneurysm or AV fistula identified.
--- NOTE | 2024-12-16 12:04 | P.PN ---
Date of Service: 12/16/24 79-year-old gentleman. All the information has been obtained from the record as the patient being intubated. The patient well known to me from the office, last seen back in November 12, 2024. 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 The patient chronic kidney disease, as I mentioned secondary to solitary kidney, baseline creatinine 3, GFR of 17 as of November 2024. Apparently, the patient came to the hospital complaining from atrial fibrillation with RVR. The patient had cardiac arrest. CPR was initiated. The patient was cardioverted, received Levophed, then weaned from Levophed. The patient had cardiac cath today and 2 stents were placed. Levophed was resumed. The patient had good urine output of 950 in the last 24 hours Patient's status post cardiac cath developed cardiogenic shock/hypovolemic shock secondary to hematoma on the site of cannulation patient did well intubated then extubated pressor has weaned off patient continues to have good urine output kidney function improved Physical Examination: Temp Pulse Resp BP Pulse Ox 97.7 F 65 15 102/58 L 95 12/16/24 08:00 12/16/24 08:00 12/16/24 08:00 12/16/24 08:00 12/16/24 08:00 Patient on vent FiO2 30% saturating above 96% Chest: Faint rales bilateral. Heart: S1, S2 systolic murmur. Abdomen: Soft, nontender. Extremities: +1 edema. Much better with venous stasis change both lower extremity crumbling on the skin resulting from improvement on edema Neurologic: The patient awake follow-up simple command no focality still confused Laboratory Last Values WBC 4.80 thou/uL (4.3-10.9) 12/02/24 10:17 RBC 3.31 M/uL (4.33-5.43) L 12/02/24 10:17 Hgb 11.0 g/dL (13.6-17.9) L 12/02/24 10:17 Hct 33.9 % (39.6-49.0) L 12/02/24 10:17 MCV 102.6 fL (80-100) H 12/02/24 10:17 MCH 33.1 pg (27.0-35.0) 12/02/24 10:17 MCHC 32.3 g/dL (32.0-36.0) 12/02/24 10:17 RDW 15.1 % (12.1-15.2) 12/02/24 10:17 Plt Count 156 thou/uL (152-406) 12/02/24 10:17 MPV 8.4 fL (7.6-11.3) 12/02/24 10:17 Neutrophils % 61.6 % (41.7-73.7) 12/02/24 10:17 Lymphocytes % 23.3 % (15.3-44.8) 12/02/24 10:17 Monocytes % 8.9 % (3.3-12.3) 12/02/24 10:17 Eosinophils % 5.2 % (0-4.4) H 12/02/24 10:17 Basophils % 1.0 % (0-1.3) 12/02/24 10:17 Absolute Neutrophils 2.9 K/uL (1.8-8.0) 12/02/24 10:17 Absolute Lymphocytes 1.1 K/uL (0.7-4.9) 12/02/24 10:17 Absolute Monocytes 0.4 K/uL (0.1-1.3) 12/02/24 10:17 Absolute Eosinophils 0.2 K/uL (0-0.5) 12/02/24 10:17 Absolute Basophils 0.0 K/uL (0-0.5) 12/02/24 10:17 PT 13.6 SECONDS (10-13.0) H 12/02/24 10:17 INR 1.21 12/02/24 10:17 pH 7.20 (7.35-7.45) L* 12/02/24 10:18 pCO2 49 mmHg (35-45) H 12/02/24 10:18 pO2 316 mmHg (75-100) H 12/02/24 10:18 HCO3 19.5 mmol/L (22.0-28.0) L 12/02/24 10:18 Base Excess -8.5 mmol/L (-2.0-3.0) L 12/02/24 10:18 Oxyhemoglobin 97.4 % (94.0-97.0) H 12/02/24 10:18 ABG O2 Sat (Measured) 99.9 % (92.0-98.5) H 12/02/24 10:18 ABG Carboxyhemoglobin 0.9 % (0.0-1.5) 12/02/24 10:18 ABG Methemoglobin 1.1 % (0.0-1.5) 12/02/24 10:18 Other Total Hgb 10.4 g/dL (12.0-18.0) L 12/02/24 10:18 Inspired O2 100.0 % 12/02/24 10:18 Sodium 143 mEq/L (136-145) 12/02/24 10:17 Potassium 3.8 mEq/L (3.5-5.1) 12/02/24 10:17 Chloride 113 mEq/L (98-107) H 12/02/24 10:17 Carbon Dioxide 21 mEq/L (21-32) 12/02/24 10:17 Anion Gap 12.8 mEq/L (5.0-15.0) 12/02/24 10:17 BUN 55 mg/dL (7-18) H 12/02/24 10:17 Creatinine 3.40 mg/dL (0.70-1.30) H 12/02/24 10:17 Est GFR (CKD-EPI) 18 ml/min (=/>90) L 12/02/24 10:17 Glucose 181 mg/dL (74-106) H 12/02/24 10:17 Calcium 8.4 mg/dL (8.5-10.1) L 12/02/24 10:17 Magnesium 2.5 mg/dL (1.6-2.4) H 12/02/24 10:17 Total Bilirubin 0.5 mg/dL (0.2-1.0) 12/02/24 10:17 Direct Bilirubin 0.3 mg/dL (0-0.2) H 12/02/24 10:17 Indirect Bilirubin 0.2 mg/dL (0.2-0.8) 12/02/24 10:17 AST 96 U/L (15-37) H 12/02/24 10:17 ALT 59 U/L (16-61) 12/02/24 10:17 Alkaline Phosphatase 104 U/L (45-117) 12/02/24 10:17 Troponin I High Sens 372.6 pg/mL (<58.9) H* 12/02/24 10:17 NT-Pro-B Natriuret Pep 2413 pg/mL (<450) H 12/02/24 10:17 Serum Total Protein 6.6 g/dL (6.4-8.2) 12/02/24 10:17 Albumin 3.1 g/dL (3.4-5.0) L 12/02/24 10:17 Globulin 3.5 g/dL (2.3-3.5) 12/02/24 10:17 Albumin/Globulin Ratio 0.9 (1.1-1.8) L 12/02/24 10:17 Amiodarone HCl (Amiodarone Hcl 200 Mg Tab) 200 mg PO BID [facility] Last Admin: 12/16/24 10:10 Dose: 200 mg Apixaban (Apixaban 2.5 Mg Tablet) 2.5 mg PO BID [facility] Last Admin: 12/16/24 10:10 Dose: 2.5 mg Levetiracetam (Levetiracetam 500 Mg Tab) 500 mg PO BID [facility] Last Admin: 12/16/24 10:10 Dose: 500 mg Nutritional Formula (Vital Hp 1,000 Ml Bot) 0 ml RTH CONT [facility] Pantoprazole Sodium (Pantoprazole 40mg Tablet) 40 mg PO DAILY [facility]; Protocol Last Admin: 12/16/24 10:10 Dose: 40 mg Sodium Chloride (Sodium Chloride 0.9% 10ml Inj) 10 ml IV UD PRN PRN Reason: Diluant Ticagrelor (Ticagrelor 90 Mg Tablet) 90 mg PO BID [facility] Last Admin: 12/16/24 10:10 Dose: 90 mg Assessment And Plan: 1. Acute kidney injury on advanced chronic kidney disease secondary to cardiorenal, secondary to atrial fibrillation, cardiac arrest, poor perfusion ATN, nonoliguric, /contrast-induced nephropathy back to baseline over volume Lasix was resumed December 09 Decrease Lasix 20 mg daily off IV fluid we will follow up the patient closely. Would repeat chest x-ray for better evaluation of the fluid status 2. Hypertension, currently low blood pressure patient on Levophed : Decrease Lasix 20 mg daily Keep hold SMILEY inhibitor or ARB for the time being. 3. Atrial fibrillation with RVR with cardiac arrest. Asked by Cardiology, continue on anticoagulation. 4. CAD non-ST elevation [place] complicated with congestive heart failure with exacerbation. Currently, the patient on vent. The patient had cardiac cath with contrast with advanced kidney disease. Patient tolerated the contrast kidney function and stay stable 5. Diabetes, as by primary. 6. Acidosis, non-anion gap metabolic acidosis secondary to poor perfusion. I do not see the need for any bicarb. 7. Hypernatremia. Resolved 8-cardiogenic shock/hypovolemic shock secondary to inguinal hematoma complicated with target organ damage including acute kidney injury secondary to ATN off of pressor currently recover: Off fluid resuscitation Continue Lasix as above 9-chronic kidney disease stage IV secondary to renal mass loss solitary kidney status post acute kidney injury recover back to baseline over volume Decrease Lasix 20 mg daily 10-local bleed from cath continue as needed transfusion Will monitor the patient 11-encephalopathy secondary to metabolic/ischemia Follow-up with the primary Follow-up with neurology continue Avril Thank you for allowing us to participate in the care of your patient. Time spent evaluating the patient, [id number] reviewing data lab and the radiology placing order documentation in the chart discussing the case with the steam oven operator including nursing staff and hospitalist more than 55 minutes
[2024-12-16] MEDS: LORAZEPAM 0.5 MG TABLET PO ONE (15:49)
--- NOTE | 2024-12-16 18:25 | P.PN ---
Subjective Date of Service: 12/16/24 Chief Complaint: Respiratory failure Patient is awake and interactive No issues overnight. Patient is tolerating diet. No recorded fever. No reported seizures. Physical Examination - Vital Signs Temperature: 98.1 F Blood Pressure: 85/49 Pulse: 69 Respirations: 16 Pulse Ox (%): 96 - Studies Medications List Reviewed: Yes Assessment And Plan - Plan Physical examination General: Awake and alert. NAD Neck: Supple Respiratory: Clear to auscultation bilaterally, Normal air movement, no crackles. Cardiovascular: Heart sounds 1 and 2 normal, regular rhythm, no murmur. No edema. Gastrointestinal: Normal bowel sounds, No tenderness, no hepatosplenomegaly Neurological: No focal motor deficit, patient moves all extremities. 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 Bryan. PCI LAD and OM1 done, LPDA is occluded, most likely culprit, wire will not cross s/p Integrilin drip Continue asa 81mg, brilinta, amiodarone Extubated to [place] on 12/07. Passed bedside swallow with nursing staff 12/12. No choking/aspiration noted. DC lasix given worsening renal function Dr. Bryan recommended continuing on Eliquis and Brilinta only dc aspirin and restart eliquis at 2.5 mg BID Continue PT. ss/cm consulted for SNF. They prefer [place]. GAL - suspect due to overdiuresis - pt not eating much orthostatic today, will give 500ml Plan: Suspected Bacteremic contamination 1 bottle grew E. coli and Streptococcus Infantarius urine culture without growth Status post IV cefepime 12/03-12/05 Stable off abx. Acute blood loss anemia; hx iron deficiency anemia Hgb dropped 10.2 -> 7.2 on 12/05. Patient had hematoma in the right thigh at entry site of C. CT abdomen/pelvis (12/05): right groin hematoma, no retroperitoneal bleed s/p 3uPRBC (12/05-12/06) Hgb has been stable . Anoxic encephalopathy Seizures, new onset (this admission) 2 episodes of seizures reported. Neurology consulted, case discussed with Dr. Nath who recommended MRI of the brain, EEG. MRI cannot be done due to PPM device. Repeat CT head showed no acute intracranial abnormality. EEG demonstrated spikes suggestive of seizures/status epilepticus. Patient treated with IV Keppran 500mg BID and transition to oral Keppra. No more seizure episodes. Hypernatremia, improved Acute on chronic kidney disease stage III Serum creatinine trended up over the last few days Lasix discontinued briefly, resumed from tomorrow by nephrology Continue to monitor renal function, electrolytes. Acosta catheter is in place. Maintain Acosta catheter for intake and output monitoring Nephrology is following. 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 Bryan recommended continuing on Eliquis and Brilinta only Aspirin discontinued due to risk of bleeding. VTE: Eliquis Code: DNR Dispo: [facility] pending insurance approval DVT PPX: SCD Code status:full code
[2024-12-17 08:00] LABS: Absolute Lymphocytes (CBC) 0.6 K/uL (0.7-4.9); Hematocrit 34.4 % (39.6-49.0); Hemoglobin 11.0 g/dL (13.6-17.9); MCH 31.2 pg (27.0-35.0); MCHC 32.0 g/dL (32.0-36.0); MCV 97.4 fL (80-100); MPV 8.9 fL (7.6-11.3); Nucleated RBC Absolute Count 0.0 (0-0); Nucleated Red Blood Cells % 0.0 % (0-0); RBC Red Blood Cell Count 3.53 M/uL (4.33-5.43); White Blood Count 9.30 thou/uL (4.3-10.9)
[2024-12-17 08:15] LABS: Anion Gap 11.1 mEq/L (5.0-15.0); BUN Blood Urea Nitrogen 73.0 mg/dL (7-18); Glucose Level 103.0 mg/dL (74-106); Potassium 4.1 mEq/L (3.5-5.1)
[2024-12-17] MEDS: FUROSEMIDE 20 MG TABLET PO SCH (09:12)
--- NOTE | 2024-12-17 18:51 | P.PN ---
Date of Service: 12/17/24 79-year-old gentleman. All the information has been obtained from the record as the patient being intubated. The patient well known to me from the office, last seen back in November 12, 2024. 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 The patient chronic kidney disease, as I mentioned secondary to solitary kidney, baseline creatinine 3, GFR of 17 as of November 2024. Apparently, the patient came to the hospital complaining from atrial fibrillation with RVR. The patient had cardiac arrest. CPR was initiated. The patient was cardioverted, received Levophed, then weaned from Levophed. The patient had cardiac cath today and 2 stents were placed. Levophed was resumed. The patient had good urine output of 950 in the last 24 hours Patient's status post cardiac cath developed cardiogenic shock/hypovolemic shock secondary to hematoma on the site of cannulation patient did well intubated then extubated pressor has weaned off patient continues to have good urine output kidney function improved Physical Examination: Temp Pulse Resp BP Pulse Ox 97.8 F 61 18 111/60 93 12/17/24 16:00 12/17/24 16:00 12/17/24 16:00 12/17/24 16:00 12/17/24 16:00 Patient on vent FiO2 30% saturating above 96% Chest: Faint rales bilateral. Heart: S1, S2 systolic murmur. Abdomen: Soft, nontender. Extremities: +1 edema. Much better with venous stasis change both lower extremity crumbling on the skin resulting from improvement on edema Neurologic: The patient awake follow-up simple command no focality still confused Amiodarone HCl (Amiodarone Hcl 200 Mg Tab) 200 mg PO BID [facility] Last Admin: 12/17/24 09:13 Dose: 200 mg Apixaban (Apixaban 2.5 Mg Tablet) 2.5 mg PO BID [facility] Last Admin: 12/17/24 09:13 Dose: 2.5 mg Furosemide (Furosemide 20 Mg Tablet) 20 mg PO DAILY [facility] Last Admin: 12/17/24 09:12 Dose: 20 mg Levetiracetam (Levetiracetam 500 Mg Tab) 500 mg PO BID [facility] Last Admin: 12/17/24 09:13 Dose: 500 mg Nutritional Formula (Vital Hp 1,000 Ml Bot) 0 ml RTH CONT [facility] Pantoprazole Sodium (Pantoprazole 40mg Tablet) 40 mg PO DAILY [facility]; Protocol Last Admin: 12/17/24 09:13 Dose: 40 mg Sodium Chloride (Sodium Chloride 0.9% 10ml Inj) 10 ml IV UD PRN PRN Reason: Diluant Ticagrelor (Ticagrelor 90 Mg Tablet) 90 mg PO BID [facility] Last Admin: 12/17/24 09:13 Dose: 90 mg Laboratory Last Values WBC 4.80 thou/uL (4.3-10.9) 12/02/24 10:17 RBC 3.31 M/uL (4.33-5.43) L 12/02/24 10:17 Hgb 11.0 g/dL (13.6-17.9) L 12/02/24 10:17 Hct 33.9 % (39.6-49.0) L 12/02/24 10:17 MCV 102.6 fL (80-100) H 12/02/24 10:17 MCH 33.1 pg (27.0-35.0) 12/02/24 10:17 MCHC 32.3 g/dL (32.0-36.0) 12/02/24 10:17 RDW 15.1 % (12.1-15.2) 12/02/24 10:17 Plt Count 156 thou/uL (152-406) 12/02/24 10:17 MPV 8.4 fL (7.6-11.3) 12/02/24 10:17 Neutrophils % 61.6 % (41.7-73.7) 12/02/24 10:17 Lymphocytes % 23.3 % (15.3-44.8) 12/02/24 10:17 Monocytes % 8.9 % (3.3-12.3) 12/02/24 10:17 Eosinophils % 5.2 % (0-4.4) H 12/02/24 10:17 Basophils % 1.0 % (0-1.3) 12/02/24 10:17 Absolute Neutrophils 2.9 K/uL (1.8-8.0) 12/02/24 10:17 Absolute Lymphocytes 1.1 K/uL (0.7-4.9) 12/02/24 10:17 Absolute Monocytes 0.4 K/uL (0.1-1.3) 12/02/24 10:17 Absolute Eosinophils 0.2 K/uL (0-0.5) 12/02/24 10:17 Absolute Basophils 0.0 K/uL (0-0.5) 12/02/24 10:17 PT 13.6 SECONDS (10-13.0) H 12/02/24 10:17 INR 1.21 12/02/24 10:17 pH 7.20 (7.35-7.45) L* 12/02/24 10:18 pCO2 49 mmHg (35-45) H 12/02/24 10:18 pO2 316 mmHg (75-100) H 12/02/24 10:18 HCO3 19.5 mmol/L (22.0-28.0) L 12/02/24 10:18 Base Excess -8.5 mmol/L (-2.0-3.0) L 12/02/24 10:18 Oxyhemoglobin 97.4 % (94.0-97.0) H 12/02/24 10:18 ABG O2 Sat (Measured) 99.9 % (92.0-98.5) H 12/02/24 10:18 ABG Carboxyhemoglobin 0.9 % (0.0-1.5) 12/02/24 10:18 ABG Methemoglobin 1.1 % (0.0-1.5) 12/02/24 10:18 Other Total Hgb 10.4 g/dL (12.0-18.0) L 12/02/24 10:18 Inspired O2 100.0 % 12/02/24 10:18 Sodium 143 mEq/L (136-145) 12/02/24 10:17 Potassium 3.8 mEq/L (3.5-5.1) 12/02/24 10:17 Chloride 113 mEq/L (98-107) H 12/02/24 10:17 Carbon Dioxide 21 mEq/L (21-32) 12/02/24 10:17 Anion Gap 12.8 mEq/L (5.0-15.0) 12/02/24 10:17 BUN 55 mg/dL (7-18) H 12/02/24 10:17 Creatinine 3.40 mg/dL (0.70-1.30) H 12/02/24 10:17 Est GFR (CKD-EPI) 18 ml/min (=/>90) L 12/02/24 10:17 Glucose 181 mg/dL (74-106) H 12/02/24 10:17 Calcium 8.4 mg/dL (8.5-10.1) L 12/02/24 10:17 Magnesium 2.5 mg/dL (1.6-2.4) H 12/02/24 10:17 Total Bilirubin 0.5 mg/dL (0.2-1.0) 12/02/24 10:17 Direct Bilirubin 0.3 mg/dL (0-0.2) H 12/02/24 10:17 Indirect Bilirubin 0.2 mg/dL (0.2-0.8) 12/02/24 10:17 AST 96 U/L (15-37) H 12/02/24 10:17 ALT 59 U/L (16-61) 12/02/24 10:17 Alkaline Phosphatase 104 U/L (45-117) 12/02/24 10:17 Troponin I High Sens 372.6 pg/mL (<58.9) H* 12/02/24 10:17 NT-Pro-B Natriuret Pep 2413 pg/mL (<450) H 12/02/24 10:17 Serum Total Protein 6.6 g/dL (6.4-8.2) 12/02/24 10:17 Albumin 3.1 g/dL (3.4-5.0) L 12/02/24 10:17 Globulin 3.5 g/dL (2.3-3.5) 12/02/24 10:17 Albumin/Globulin Ratio 0.9 (1.1-1.8) L 12/02/24 10:17 Assessment And Plan: 1. Acute kidney injury on advanced chronic kidney disease secondary to cardior enal, secondary to atrial fibrillation, cardiac arrest, poor perfusion ATN, nonoliguric, /contrast-induced nephropathy back to baseline over volume Lasix was resumed December 09 Decrease Lasix 20 mg daily off IV fluid we will follow up the patient closely. Would repeat chest x-ray for better evaluation of the fluid status 2. Hypertension, currently low blood pressure patient on Levophed : Decrease Lasix 20 mg daily Keep hold SMILEY inhibitor or ARB for the time being. 3. Atrial fibrillation with RVR with cardiac arrest. Asked by Cardiology, continue on anticoagulation. 4. CAD non-ST elevation [place] complicated with congestive heart failure with exacerbation. Currently, the patient on vent. The patient had cardiac cath with contrast with advanced kidney disease. Patient tolerated the contrast kidney function and stay stable 5. Diabetes, as by primary. 6. Acidosis, non-anion gap metabolic acidosis secondary to poor perfusion. I do not see the need for any bicarb. 7. Hypernatremia. Resolved 8-cardiogenic shock/hypovolemic shock secondary to inguinal hematoma complicated with target organ damage including acute kidney injury secondary to ATN off of pressor currently recover: Off fluid resuscitation Continue Lasix as above 9-chronic kidney disease stage IV secondary to renal mass loss solitary kidney status post acute kidney injury recover back to baseline over volume Decrease Lasix 20 mg daily 10-local bleed from cath continue as needed transfusion Will monitor the patient 11-encephalopathy secondary to metabolic/ischemia Follow-up with the primary Follow-up with neurology teresita Mackenzie Thank you for allowing us to participate in the care of your patient. Time spent evaluating the patient, [id number] reviewing data lab and the radiology placing order documentation in the chart discussing the case with the steam cleaner including nursing staff and hospitalist more than 55 minutes
--- NOTE | 2024-12-17 18:52 | P.PN ---
Subjective Date of Service: 12/17/24 Chief Complaint: Respiratory failure Patient is awake and alert. He denies any complaint. He reports good sleep last night. No agitation Patient is tolerating diet. No reported seizures. Physical Examination - Vital Signs Temperature: 97.8 F Blood Pressure: 111/60 Pulse: 61 Respirations: 18 Pulse Ox (%): 93 - Studies Medications List Reviewed: Yes Assessment And Plan - Plan Physical examination General: Awake and alert. NAD Neck: Supple Respiratory: Clear to auscultation bilaterally, Normal air movement, no crackles. Cardiovascular: Heart sounds 1 and 2 normal, regular rhythm, no murmur. No edema. Gastrointestinal: Normal bowel sounds, No tenderness, no hepatosplenomegaly Neurological: No focal motor deficit, patient moves all extremities. 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 Bryan. PCI LAD and OM1 done, LPDA is occluded, most likely culprit, wire will not cross s/p Integrilin drip Continue asa 81mg, brilinta, amiodarone Extubated to [place] on 12/07. Passed bedside swallow with nursing staff 12/12. No choking/aspiration noted. DC lasix given worsening renal function Dr. Bryan recommended continuing on Eliquis and Brilinta only dc aspirin and restart eliquis at 2.5 mg BID Continue PT. ss/cm consulted for SNF. They prefer [facility]. GAL - suspect due to overdiuresis - pt not eating much orthostatic today, will give 500ml Plan: Suspected Bacteremic contamination 1 bottle grew E. coli and Streptococcus Infantarius urine culture without growth Status post IV cefepime 12/03-12/05 Stable off abx. Acute blood loss anemia; hx iron deficiency anemia Hgb dropped 10.2 -> 7.2 on 12/05. Patient had hematoma in the right thigh at entry site of C. CT abdomen/pelvis (12/05): right groin hematoma, no retroperitoneal bleed s/p 3uPRBC (12/05-12/06) Hgb has been stable . Anoxic encephalopathy Seizures, new onset (this admission) 2 episodes of seizures reported. Neurology consulted, case discussed with Dr. Nath who recommended MRI of the brain, EEG. MRI cannot be done due to PPM device. Repeat CT head showed no acute intracranial abnormality. EEG demonstrated spikes suggestive of seizures/status epilepticus. Patient treated with IV Keppran 500mg BID and transition to oral Keppra. No more seizure episodes. Hypernatremia, improved Acute on chronic kidney disease stage III Serum creatinine trended up over the last few days Lasix discontinued briefly, resumed from tomorrow by nephrology Continue to monitor renal function, electrolytes. Acosta catheter is in place. Maintain Acosta catheter for intake and output monitoring Nephrology is following. 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 Bryan recommended continuing on Eliquis and Brilinta only Aspirin discontinued due to risk of bleeding. 12/17/2024 Clinically stable off antibiotics. Renal function is improved, BUN at 73, nephrology is following renal function and diuresis. Diet as tolerated Continue PT Patient accepted to [facility] pending clearance from nephrology VTE: Eliquis Code: DNR [facility] PPX: SCD Code status:full code
[2024-12-18 04:56] LABS: Absolute Lymphocytes (CBC) 0.5 K/uL (0.7-4.9); Hematocrit 33.7 % (39.6-49.0); Hemoglobin 11.3 g/dL (13.6-17.9); MCH 32.3 pg (27.0-35.0); MCHC 33.6 g/dL (32.0-36.0); MCV 96.2 fL (80-100); MPV 8.4 fL (7.6-11.3); Nucleated RBC Absolute Count 0.0 (0-0); Nucleated Red Blood Cells % 0.2 % (0-0); RBC Red Blood Cell Count 3.51 M/uL (4.33-5.43); White Blood Count 9.20 thou/uL (4.3-10.9)
[2024-12-18 05:07] LABS: Anion Gap 10.1 mEq/L (5.0-15.0); BUN Blood Urea Nitrogen 66.0 mg/dL (7-18); Glucose Level 105.0 mg/dL (74-106); Potassium 4.1 mEq/L (3.5-5.1)
[2024-12-18] MEDS: LORazepam 2 MG/ML VIAL IV ONE (12:37)
--- NOTE | 2024-12-18 17:25 | P.DS ---
Admission Date: 12/02/24 Discharge Date: 12/19/24 Disposition: TRANSFER TO SKILLED NURSING Discharge Condition: FAIR Reason for Admission: Respiratory failure Hospital Course: 79-year-old male with history of CKD 4, CHF, COPD with pacemaker in place was brought to the emergency department after suffering an [id number] cardiac arrest. His reports that this morning while sitting up in bed he began to complain of chest pain, numbness to bilateral arms and shortly after became unresponsive. She checked for pulse and he did not have 911 was called and EMS arrived shortly after to begin chest compressions. He was defibrillated twice for V-fib and they were able to obtain ROSC prior to arrival to the hospital. He was intubated in the field. Patient was evaluated here in the emergency department started on Levophed for p ersistent hypotension. His labs significant for a creatinine of 3.4 with a GFR of 18, glucose of 191 initial high sensitive troponin of 372.6 BNP of 2413, rhythm is paced. ABG shows a pH of 7.2 pCO2 49 pO2 360 and HCO3 of 19.5. No STEMI on postarrest EKG. Patient started on heparin drip admitted to the ICU. 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 Bryan, left heart catheterization performed PCI to LAD and OM1 done, LPDA occluded, most likely culprit. Patient treated with Integrilin drip after cardiac catheterization and placed on asa 81mg, brilinta. He was also treated with amiodarone post V-fib. He was extubated to nasal cannula on 12/07, he needed intermittent BiPAP and subsequently became stable on oxygen by nasal cannula. He was initially fed via NG tube for dysphagia Patient passed repeat bedside swallow and was started on a diet. He was treated with IV Lasix for CHF, renal function worsened with diuresis and this was discontinued. Later started maintenance oral Lasix. Aspirin was later discontinued and patient kept on Eliquis and Brilinta only by Dr. Bryan recommendation. Overall patient clinically improved, mental status improved to the point patient was interacting meaningfully and became oriented to person place and time. Patient received PT and has been accepted to SNF at [place]. Suspected Bacteremic contamination 1 blood culture bottle grew E. coli and Streptococcus Infantarius urine culture without growth Patient completed antibiotic treatment with IV cefepime. Acute blood loss anemia; hx iron deficiency anemia Hgb dropped from 10.2 to 7.2 on 12/05. Patient had hematoma in the right thigh at entry site of LHC. CT abdomen/pelvis (12/05): right groin hematoma, no retroperitoneal bleed Patient received a total of 3 units PRBC transfused Hgb was stable afterwards. Anoxic encephalopathy Seizures, new onset (this admission) Patient had 2 episodes of seizures. Neurology consulted, Dr. Nath evaluated patient. EEG was done which suggested status epilepticus. MRI could not be done due to PPM device. Repeat CT head showed no acute intracranial abnormality. Patient treated with IV Keppran 500mg BID and transition to oral Keppra. No more seizure episodes. Hypernatremia, improved Acute on chronic kidney disease stage III Acosta catheter was placed for strict intake and output monitoring and also to avoid postobstructive uropathy. Renal function improved and close to baseline. Nephrology evaluated patient and assisted with manage. Patient was treated with IV Lasix which was discontinued and later resumed as oral Lasix 20 mg daily as maintenance dose. Acosta catheter was inserted, patient failed voiding trial after removal and was reinserted again. Patient is to follow-up with urology as outpatient. Patient prescribed Flomax. 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 She was also treated with bronchodilators for COPD. CPAP use recommended Vital Signs/Physical Exam: Temp Pulse Resp BP Pulse Ox 98.5 F 61 17 96/57 L 98 12/18/24 12:00 12/18/24 12:00 12/18/24 12:00 12/18/24 12:00 12/18/24 12:00 General: Alert, In no apparent distress, Oriented x3 HEENT: Mucous membr. moist/pink, Sclerae nonicteric Neck: Supple, JVD not distended Respiratory: Clear to auscultation bilaterally, Normal air movement Cardiovascular: No edema, Regular rate/rhythm, No murmurs Gastrointestinal: Normal bowel sounds, Soft and benign, Non-distended, No tenderness Musculoskeletal: No swelling, No tenderness Integumentary: No cyanosis Neurological: Normal strength at 5/5 x4 extr Laboratory Data at Discharge: WBC 9.20 thou/uL (4.3-10.9) 12/18/24 04:13 Hgb 11.3 g/dL (13.6-17.9) L 12/18/24 04:13 Hct 33.7 % (39.6-49.0) L 12/18/24 04:13 Plt Count 264 thou/uL (152-406) 12/18/24 04:13 PT 13.6 SECONDS (10-13.0) H 12/02/24 10:17 INR 1.21 12/02/24 10:17 APTT Cancelled 12/03/24 09:00 Sodium 141 mEq/L (136-145) 12/18/24 04:13 Potassium 4.1 mEq/L (3.5-5.1) 12/18/24 04:13 BUN 66 mg/dL (7-18) H 12/18/24 04:13 Creatinine 2.74 mg/dL (0.70-1.30) H 12/18/24 04:13 Glucose 105 mg/dL (74-106) 12/18/24 04:13 Phosphorus 3.1 mg/dL (2.5-4.9) 12/13/24 07:09 Magnesium 2.6 mg/dL (1.6-2.4) H 12/16/24 06:43 Total Bilirubin 0.6 mg/dL (0.2-1.0) 12/10/24 04:35 AST 17 U/L (15-37) 12/10/24 04:35 ALT 21 U/L (16-61) 12/10/24 04:35 Alkaline Phosphatase 80 U/L (45-117) 12/10/24 04:35 Home Medications: Acetaminophen [Tylenol] 650 mg PO Q6H 12/02/24 Pantoprazole Sodium [Protonix] 40 mg PO DAILY 12/02/24 Amiodarone HCl [Cordarone*] 200 mg PO BID tab 12/18/24 Apixaban [Eliquis *] 2.5 mg PO BID 12/18/24 Furosemide [Lasix*] 20 mg PO DAILY tab 12/18/24 Ticagrelor [Brilinta*] 90 mg PO BID 12/18/24 levETIRAcetam [Keppra*] 500 mg PO BID tab 12/18/24 Physician Discharge Instructions: 79-year-old male with history of CKD 4, CHF, COPD with pacemaker in place was brought to the emergency department after suffering an [id number] cardiac arrest. His reports that this morning while sitting up in bed he began to complain of chest pain, numbness to bilateral arms and shortly after became unresponsive. She checked for pulse and he did not have 911 was called and EMS arrived shortly after to begin chest compressions. He was defibrillated twice for V-fib and they were able to obtain ROSC prior to arrival to the hospital. He was intubated in the field. Patient was evaluated here in the emergency department started on Levophed for persistent hypotension. His labs significant for a creatinine of 3.4 with a GFR of 18, glucose of 191 initial high sensitive troponin of 372.6 BNP of 2413, rhythm is paced. ABG shows a pH of 7.2 pCO2 49 pO2 360 and HCO3 of 19.5. No STEMI on postarrest EKG. Patient started on heparin drip admitted to the ICU. The following medical problems were addressed during the hospital stay: V-fib arrest with ROSC NSTEMI Cardiogenic shock CAD s/p PCI x2 (12/05/24) Acute hypoxic respiratory failure secondary to CHF exacerbation History of CHF-pacemaker in place Patient attained ROSC after 2 defibrillations before presentation Patient seen by cardiology Dr. Bryan, left heart catheterization performed PCI to LAD and OM1 done, LPDA occluded, most likely culprit. Patient treated with Integrilin drip after cardiac catheterization and placed on asa 81mg, brilinta. He was also treated with amiodarone post V-fib. He was extubated to nasal cannula on 12/07, he needed intermittent BiPAP and subsequently became stable on oxygen by nasal cannula. He was initially fed via NG tube for dysphagia Patient passed repeat bedside swallow and was started on a diet. He was treated with IV Lasix for CHF, renal function worsened with diuresis and this was discontinued. Later started maintenance oral Lasix. Aspirin was later discontinued and patient kept on Eliquis and Brilinta only by Dr. Bryan recommendation. Overall patient clinically improved, mental status improved to the point patient was interacting meaningfully and became oriented to person place and time. Patient received PT and has been accepted to SNF at [place]. Suspected Bacteremic contamination 1 blood culture bottle grew E. coli and Streptococcus Infantarius urine culture without growth Patient completed antibiotic treatment with IV cefepime. Acute blood loss anemia; hx iron deficiency anemia Hgb dropped from 10.2 to 7.2 on 12/05. Patient had hematoma in the right thigh at entry site of LHC. CT abdomen/pelvis (12/05): right groin hematoma, no retroperitoneal bleed Patient received a total of 3 units PRBC transfused Hgb was stable afterwards. Anoxic encephalopathy Seizures, new onset (this admission) Patient had 2 episodes of seizures. Neurology consulted, Dr. Nath evaluated patient. EEG was done which suggested status epilepticus. MRI could not be done due to PPM device. Repeat CT head showed no acute intracranial abnormality. Patient treated with IV Keppran 500mg BID and transition to oral Keppra. No more seizure episodes. Hypernatremia, improved Acute on chronic kidney disease stage III Acute urinary retention Acosta catheter was placed for strict intake and output monitoring and also to avoid postobstructive uropathy. Acosta catheter discontinued on discharge. Renal function improved and close to baseline. Nephrology evaluated patient and assisted with manage. Patient was treated with IV Lasix which was discontinued and later resumed as oral Lasix 20 mg daily as maintenance dose. 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 She was also treated with bronchodilators for COPD. CPAP use recommended Diet: AHA Activity: Fall precautions Followup: Matthews,Nikko E, MD [Primary Care Provider] - 1-2 Weeks Time spent managing pt's care (in minutes): 46
--- NOTE | 2024-12-18 17:32 | P.PN ---
Subjective Date of Service: 12/18/24 Chief Complaint: Respiratory failure Patient is awake and alert. He was complaining of chest pain earlier. No chest pain on reevaluation today. Patient is tolerating diet. No reported seizures. Physical Examination - Vital Signs Temperature: 98.5 F Blood Pressure: 96/57 Pulse: 61 Respirations: 17 Pulse Ox (%): 98 - Studies Medications List Reviewed: Yes Assessment And Plan - Plan Physical examination General: Awake and alert. NAD Neck: Supple Respiratory: Clear to auscultation bilaterally, Normal air movement, no crackles. Cardiovascular: Heart sounds 1 and 2 normal, regular rhythm, no murmur. No edema. Gastrointestinal: Normal bowel sounds, No tenderness, no hepatosplenomegaly Neurological: No focal motor deficit, patient moves all extremities. 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 Bryan. PCI LAD and OM1 done, LPDA is occluded, most likely culprit, wire will not cross s/p Integrilin drip Continue asa 81mg, brilinta, amiodarone Extubated to PR on 12/07. Passed bedside swallow with nursing staff 12/12. No choking/aspiration noted. DC lasix given worsening renal function Dr. Bryan recommended continuing on Eliquis and Brilinta only dc aspirin and restart eliquis at 2.5 mg BID Continue PT. ss/cm consulted for SNF. They prefer [facility]. Suspected Bacteremic contamination 1 bottle grew E. coli and Streptococcus Infantarius urine culture without growth Status post IV cefepime 12/03-12/05 Stable off abx. Acute blood loss anemia; hx iron deficiency anemia Hgb dropped 10.2 -> 7.2 on 12/05. Patient had hematoma in the right thigh at entry site of [facility]. CT abdomen/pelvis (12/05): right groin hematoma, no retroperitoneal bleed s/p 3uPRBC (12/05-12/06) Hgb has been stable . Anoxic encephalopathy Seizures, new onset (this admission) 2 episodes of seizures reported. Neurology consulted, case discussed with Dr. Nath who recommended MRI of the brain, EEG. MRI cannot be done due to PPM device. Repeat CT head showed no acute intracranial abnormality. EEG demonstrated spikes suggestive of seizures/status epilepticus. Patient treated with IV Keppran 500mg BID and transition to oral Keppra. No more seizure episodes. Hypernatremia, improved Acute on chronic kidney disease stage III Serum creatinine trended up over the last few days Lasix discontinued briefly, resumed from tomorrow by nephrology Continue to monitor renal function, electrolytes. Acosta catheter is in place. Maintain Acosta catheter for intake and output monitoring Nephrology is following. 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 Bryan recommended continuing on Eliquis and Brilinta only Aspirin discontinued due to risk of bleeding. 12/17/2024 Clinically stable off antibiotics. Renal function is improved, BUN at 73, nephrology is following renal function and diuresis. Diet as tolerated Continue PT Patient accepted to SNF pending clearance from nephrology. 12/18/2024 Troponin done to evaluate chest pain was negative, EKG demonstrated paced rhythm, no ischemic changes. Patient is on Brilinta and Eliquis. Case discussed with cardiology Dr. Bryan who recommend to continue the Eliquis and Brilinta. Renal function improved from yesterday. Case discussed with nephrology Dr. Davies who recommend to continue oral Lasix 20 mg daily. Discontinue Acosta catheter for voiding trial Continue PT Clinically stable for discharge to [facility]. VTE: Eliquis Code: DNR Dispo: [facility]. DVT PPX: SCD Code status:full code
--- NOTE | 2024-12-18 23:40 | P.PN ---
Date of Service: 12/18/24 79-year-old gentleman. All the information has been obtained from the record as the patient being intubated. The patient well known to me from the office, last seen back in November 12, 2024. 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 The patient chronic kidney disease, as I mentioned secondary to solitary kidney, baseline creatinine 3, GFR of 17 as of November 2024. Apparently, the patient came to the hospital complaining from atrial fibrillation with RVR. The patient had cardiac arrest. CPR was initiated. The patient was cardioverted, received Levophed, then weaned from Levophed. The patient had cardiac cath today and 2 stents were placed. Levophed was resumed. The patient had good urine output of 950 in the last 24 hours Patient's status post cardiac cath developed cardiogenic shock/hypovolemic shock secondary to hematoma on the site of cannulation patient did well intubated then extubated pressor has weaned off patient continues to have good urine output kidney function improved Physical Examination: Temp Pulse Resp BP Pulse Ox 97.6 F 60 18 142/76 H 100 12/18/24 20:00 12/18/24 20:00 12/18/24 20:00 12/18/24 20:00 12/18/24 20:00 Patient on vent FiO2 30% saturating above 96% Chest: Faint rales bilateral. Heart: S1, S2 systolic murmur. Abdomen: Soft, nontender. Extremities: +1 edema. Much better with venous stasis change both lower extremity crumbling on the skin resulting from improvement on edema Neurologic: The patient awake follow-up simple command no focality still confused Amiodarone HCl (Amiodarone Hcl 200 Mg Tab) 200 mg PO BID [facility] Last Admin: 12/18/24 21:24 Dose: 200 mg Apixaban (Apixaban 2.5 Mg Tablet) 2.5 mg PO BID [facility] Last Admin: 12/18/24 21:24 Dose: 2.5 mg Furosemide (Furosemide 20 Mg Tablet) 20 mg PO DAILY [facility] Last Admin: 12/18/24 09:00 Dose: 20 mg Levetiracetam (Levetiracetam 500 Mg Tab) 500 mg PO BID [facility] Last Admin: 12/18/24 21:24 Dose: 500 mg Nutritional Formula (Vital Hp 1,000 Ml Bot) 0 ml RTH CONT INGRID Pantoprazole Sodium (Pantoprazole 40mg Tablet) 40 mg PO DAILY INGRID; Protocol Last Admin: 12/18/24 09:00 Dose: 40 mg Sodium Chloride (Sodium Chloride 0.9% 10ml Inj) 10 ml IV UD PRN PRN Reason: Diluant Ticagrelor (Ticagrelor 90 Mg Tablet) 90 mg PO BID INGRID Last Admin: 12/18/24 21:23 Dose: 90 mg Laboratory Tests 12/02/24 12/02/24 12/02/24 10:17 10:17 10:17 WBC 4.80 RBC 3.31 L Hgb 11.0 L Hct 33.9 L MCV 102.6 H MCH 33.1 MCHC 32.3 RDW 15.1 Plt Count 156 MPV 8.4 Neutrophils % 61.6 Lymphocytes % 23.3 Monocytes % 8.9 Eosinophils % 5.2 H Basophils % 1.0 Absolute Neutrophils 2.9 Absolute Lymphocytes 1.1 Absolute Monocytes 0.4 Absolute Eosinophils 0.2 Absolute Basophils 0.0 PT 13.6 H INR 1.21 pH pCO2 pO2 HCO3 Base Excess Oxyhemoglobin ABG O2 Sat (Measured) ABG Carboxyhemoglobin ABG Methemoglobin Other Total Hgb Inspired O2 Sodium 143 Potassium 3.8 Chloride 113 H Carbon Dioxide 21 Anion Gap 12.8 BUN 55 H Creatinine 3.40 H Est GFR (CKD-EPI) 18 L Glucose 181 H Calcium 8.4 L Magnesium 2.5 H Total Bilirubin 0.5 Direct Bilirubin 0.3 H Indirect Bilirubin 0.2 AST 96 H ALT 59 Alkaline Phosphatase 104 Troponin I High Sens 372.6 H* NT-Pro-B Natriuret Pep 2413 H Serum Total Protein 6.6 Albumin 3.1 L Globulin 3.5 Albumin/Globulin Ratio 0.9 L 12/02/24 10:18 WBC RBC Hgb Hct MCV MCH MCHC RDW Plt Count MPV Neutrophils % Lymphocytes % Monocytes % Eosinophils % Basophils % Absolute Neutrophils Absolute Lymphocytes Absolute Monocytes Absolute Eosinophils Absolute Basophils PT INR pH 7.20 L* pCO2 49 H pO2 316 H HCO3 19.5 L Base Excess -8.5 L Oxyhemoglobin 97.4 H ABG O2 Sat (Measured) 99.9 H ABG Carboxyhemoglobin 0.9 ABG Methemoglobin 1.1 Other Total Hgb 10.4 L Inspired O2 100.0 Sodium Potassium Chloride Carbon Dioxide Anion Gap BUN Creatinine Est GFR (CKD-EPI) Glucose Calcium Magnesium Total Bilirubin Direct Bilirubin Indirect Bilirubin AST ALT Alkaline Phosphatase Troponin I High Sens NT-Pro-B Natriuret Pep Serum Total Protein Albumin Globulin Albumin/Globulin Ratio Assessment And Plan: 1. Acute kidney injury on advanced chronic kidney disease secondary to cardiorenal, secondary to atrial fibrillation, cardiac arrest, poor perfusion ATN, nonoliguric, /contrast-induced nephropathy back to baseline over volume Lasix was resumed December 09 continue Lasix 20 mg daily off IV fluid we will follow up the patient closely. Would repeat chest x-ray for better evaluation of the fluid status 2. Hypertension, currently low blood pressure patient on Levophed : continue Lasix 20 mg daily Keep hold SMILEY inhibitor or ARB for the time being. 3. Atrial fibrillation with RVR with cardiac arrest. Asked by Cardiology, continue on anticoagulation. 4. CAD non-ST elevation UT complicated with congestive heart failure with exacerbation. Currently, the patient on vent. The patient had cardiac cath with contrast with advanced kidney disease. Patient tolerated the contrast kidney function and stay stable 5. Diabetes, as by primary. 6. Acidosis, non-anion gap metabolic acidosis secondary to poor perfusion. I do not see the need for any bicarb. 7. Hypernatremia. Resolved 8-cardiogenic shock/hypovolemic shock secondary to inguinal hematoma complicated with target organ damage including acute kidney injury secondary to ATN off of pressor currently recover: Off fluid resuscitation continue Lasix 20 mg daily 9-chronic kidney disease stage IV secondary to renal mass loss solitary kidney status post acute kidney injury recover back to baseline over volume continue Lasix 20 mg daily 10-local bleed from cath continue as needed transfusion Will monitor the patient 11-encephalopathy secondary to metabolic/ischemia Follow-up with the primary Follow-up with neurology continue Avril Thank you for allowing us to participate in the care of your patient. Time spent evaluating the patient, [id number] reviewing data lab and the radiology placing order documentation in the chart discussing the case with the user experience team lead including nursing staff and hospitalist more than 55 minutes
[2024-12-19 07:06] LABS: Absolute Lymphocytes (CBC) 0.4 K/uL (0.7-4.9); Hematocrit 36.0 % (39.6-49.0); Hemoglobin 11.5 g/dL (13.6-17.9); MCH 31.5 pg (27.0-35.0); MCHC 32.0 g/dL (32.0-36.0); MCV 98.4 fL (80-100); MPV 8.7 fL (7.6-11.3); Nucleated RBC Absolute Count 0.0 (0-0); Nucleated Red Blood Cells % 0.1 % (0-0); RBC Red Blood Cell Count 3.66 M/uL (4.33-5.43); White Blood Count 8.00 thou/uL (4.3-10.9)
[2024-12-19 07:19] LABS: Anion Gap 10.3 mEq/L (5.0-15.0); BUN Blood Urea Nitrogen 76.0 mg/dL (7-18); Glucose Level 126.0 mg/dL (74-106); Potassium 4.3 mEq/L (3.5-5.1)
[2024-12-19 08:10] VITALS: BP 103/52; TEMP 97.6
[2024-12-19 09:43] VITALS: O2SAT 94
== END 2024-12-19 12:55 | DRG 981 ==
LOC: ER 10:05 → ERHOLD 15:11 → 3RD-ICU 16:21 → 4TH 12-10 17:22
PROVIDERS: ADMIT Internal Medicine; ATTEND Internal Medicine
PROC: 3E033XZ Introduction of Vasopressor into Peripheral Vein, Percutaneous Approach (ICD-10-PCS; 2024-12-02)
PROC: 02HV33Z Insertion of Infusion Device into Superior Vena Cava, Percutaneous Approach (ICD-10-PCS; 2024-12-02)
PROC: 4A033R1 Measurement of Arterial Saturation, Peripheral, Percutaneous Approach (ICD-10-PCS; 2024-12-02)
PROC: 5A1955Z Respiratory Ventilation, Greater than 96 Consecutive Hours (ICD-10-PCS; 2024-12-02)
PROC: 0T9B70Z Drainage of Bladder with Drainage Device, Via Natural or Artificial Opening (ICD-10-PCS; 2024-12-02)
PROC: 027035Z Dilation of Coronary Artery, One Artery with Two Drug-eluting Intraluminal Devices, Percutaneous Approach (ICD-10-PCS; principal; 2024-12-03)
PROC: 4A023N7 Measurement of Cardiac Sampling and Pressure, Left Heart, Percutaneous Approach (ICD-10-PCS; 2024-12-03)
PROC: B2111ZZ Fluoroscopy of Multiple Coronary Arteries using Low Osmolar Contrast (ICD-10-PCS; 2024-12-03)
PROC: 30233N1 Transfusion of Nonautologous Red Blood Cells into Peripheral Vein, Percutaneous Approach (ICD-10-PCS; 2024-12-05)
PROC: 0DH67UZ Insertion of Feeding Device into Stomach, Via Natural or Artificial Opening (ICD-10-PCS; 2024-12-06)
DX: J96.01 Acute respiratory failure with hypoxia (principal); G92.8 Other toxic encephalopathy; I49.01 Ventricular fibrillation; I21.4 Non-ST elevation (NSTEMI) myocardial infarction; N17.0 Acute kidney failure with tubular necrosis; R57.1 Hypovolemic shock; I46.9 Cardiac arrest, cause unspecified; N18.4 Chronic kidney disease, stage 4 (severe); G93.1 Anoxic brain damage, not elsewhere classified; I13.0 Hypertensive heart and chronic kidney disease with heart failure and stage 1 through stage 4 chronic kidney disease, or unspecified chronic kidney disease; E87.20 Acidosis, unspecified; E87.0 Hyperosmolality and hypernatremia; D62 Acute posthemorrhagic anemia; J96.02 Acute respiratory failure with hypercapnia; I50.9 Heart failure, unspecified; E11.22 Type 2 diabetes mellitus with diabetic chronic kidney disease; D63.1 Anemia in chronic kidney disease; M10.9 Gout, unspecified; I95.81 Postprocedural hypotension; S30.12XA Contusion of groin, initial encounter; I95.9 Hypotension, unspecified; D75.89 Other specified diseases of blood and blood-forming organs; E66.01 Morbid (severe) obesity due to excess calories; I48.0 Paroxysmal atrial fibrillation; J44.9 Chronic obstructive pulmonary disease, unspecified; I25.10 Atherosclerotic heart disease of native coronary artery without angina pectoris; B95.4 Other streptococcus as the cause of diseases classified elsewhere; B96.20 Unspecified Escherichia coli [E. coli] as the cause of diseases classified elsewhere; R56.9 Unspecified convulsions; R33.9 Retention of urine, unspecified; Z66 Do not resuscitate; Z88.2 Allergy status to sulfonamides; Z95.0 Presence of cardiac pacemaker; Z88.1 Allergy status to other antibiotic agents; Z98.84 Bariatric surgery status; Z79.01 Long term (current) use of anticoagulants; Z68.35 Body mass index [BMI] 35.0-35.9, adult; Z90.49 Acquired absence of other specified parts of digestive tract; Z91.041 Radiographic dye allergy status; Z79.899 Other long term (current) drug therapy; Z87.891 Personal history of nicotine dependence; Z78.1 Physical restraint status
CPT/HCPCS: 36415; 36430; 36569; 36600; 70450; 71045; 71275; 72125; 74018; 74175; 74176; 76937; 80048; 80053; 80069; 80076; 81001; 82805; 82947; 83735; 83880; 84100; 84439; 84443; 84484; 85014; 85018; 85025; 85027; 85347; 85610; 85730; 86850; 86900; 86901; 86920; 87040; 87086; 87088; 87205; 92610; 92950; 93005; 93306; 93454; 93926; 94002; 94003; 94640; 94760; 95816; 97110; 97116; 97161; 97530; 99291; 99292; C1725; C1760; C1874; C1877; C1893; C9600; C9601; G0269; J0282; J0692; J1200; J1327; J1644; J1938; J1953; J2003; J2250; J2371; J2470; J2704; J2919; J3010; J3475; J3480; J7030; J7040; J7042; J7050; J7060; J7613; J7644; J7799; P9016; Q9967